=== PATIENT | female | born 1945 | race Caucasian/White ===

== ENCOUNTER → 2016-04-20 | Outpatient (REF) | payer MEDICARE ==
[~2016-04-20] MED LIST: /ADVA50050 INH; /AMIO20TA PO; /ATOR40TA PO; /TIOT18INH INH; ACET-654 PO; ADV500INH INH; ALBU17IN INH; AMIO20TA PO; AMLO5TAB; ASPI81TA85 PO; ATOR40TA PO; BACL5TA PO; BISO5TAB5 PO; CALC600T10 PO; ENEMENE6 PR; FOLI1TAB; FOLI1TAB2 PO; FURO20TA2 PO; FURO40TA2 PO; IPRASOL4 INH; IRON CR; KLOR1TAB77 PO; LEVO50TA5 PO; MAG-400T7 PO; MAGN400T5 PO; MAGNESIUM OXIDE PO; MILKSUS PO; MULTIVIT; NYSTATIN ORAL; PEPC20TA2 PO; PERC5TAB8; PLAV75TA PO; POTA20TA; PRED10TA2; PRED20TA; PRED5TAB; PRIL20CA PO; SENN8.6T10 PO; SYMB80AE INH; SYNT50TA PO; TRAZ25TA GT; TYLE167L PO; VITAD1000T PO; VITAMIN D PO; XOPE1.252; mucinex
[2016-04-20 11:17] LABS: ALBUMIN 3.2 GM/DL (3.2-5.2); CALCIUM LEVEL 8.6 MG/DL (8.8-10.2); CREATININE FOR GFR 1.31 MG/DL (0.55-1.02); GLOMERULAR FILTRATION RATE 42.6 (>39); MAGNESIUM LEVEL 2.5 MG/DL (1.8-2.4); PHOSPHORUS LEVEL 3.9 MG/DL (2.5-4.9); POTASSIUM SERUM 4.8 MEQ/L (3.5-5.1)
== END ==
PROVIDERS: ATTEND Internal Medicine
DX: I48.91 Unspecified atrial fibrillation (principal); I50.9 Heart failure, unspecified; E87.6 Hypokalemia

== ENCOUNTER → 2016-06-14 | Outpatient (REF) ==
[~2016-06-14] MED LIST changes: +1/2 NS; +ACET500T37 PO; +ALBU83IN INH; +ALDA25TA2 PO; +CEFT1INJ3 IV; +DEMA20TA6 PO; +FEVE650S3 PR; +K-TA1TAB PO; -PLAV75TA PO; +PLAV75TA38 PO; +ROCE1INJ4 IV; +ZOLO50TA PO; +[UNRECOGNIZED DRUG - CODE] IV
--- NOTE | 2016-06-14 16:46 | REP ---
Single view chest x-ray: History: Wheezing and cough. Comparison study: 01/07/2016. Findings: The patient is rotated somewhat to the right. Mild cardiomegaly is observed. This is unchanged. Pulmonary vasculature is congested. No infiltrate or pleural effusion is seen. There is some plate-like atelectasis or linear scarring in the right base. Impression: No acute infiltrate. Cardiomegaly. Mild linear scarring versus discoid atelectasis on the right. Signed by Donta Thakkar MD 06/14/2016 05:05 P
== END ==
PROVIDERS: ATTEND Internal Medicine
DX: R05 Cough (principal); R06.2 Wheezing; I51.7 Cardiomegaly

== ENCOUNTER → 2016-06-15 | Outpatient (REF) ==
[2016-06-15 13:36] LABS: MEAN CORPUSCULAR HEMOGLOBIN 28.2 pg (27.0-33.0); MEAN CORPUSCULAR HGB CONC 32.4 g/dl (32.0-36.5); WHITE BLOOD COUNT 10.7 K/mm3 (4.0-10.0)
[2016-06-15 14:08] LABS: ALBUMIN 3.2 GM/DL (3.2-5.2); ALBUMIN/GLOBULIN RATIO 0.8 (1.00-1.93); BILIRUBIN,DIRECT 0.3 MG/DL (0.0-0.2); BILIRUBIN,TOTAL 0.9 MG/DL (0.2-1.0); CALCIUM LEVEL 9.2 MG/DL (8.8-10.2); CREATININE FOR GFR 1.61 MG/DL (0.55-1.02); GLOMERULAR FILTRATION RATE 33.6 (>39); POTASSIUM SERUM 4.3 MEQ/L (3.5-5.1); TOTAL PROTEIN 7.2 GM/DL (6.4-8.2)
== END ==
PROVIDERS: ATTEND Internal Medicine
DX: R10.11 Right upper quadrant pain (principal)

== ENCOUNTER → 2016-06-15 | Outpatient (REF) | PROVIDERS: ATTEND Internal Medicine | DX: R11.10 Vomiting, unspecified (principal); Z53.9 Procedure and treatment not carried out, unspecified reason ==

== ENCOUNTER → 2016-06-15 | Outpatient (CLI) | payer MEDICARE, MEDICAID ==
--- NOTE | 2016-06-15 15:22 | REP ---
REASON: Abdominal pain and vomiting. COMPARISON: 08/02/2009 The lack of intravenous and all bowel preparatory contrast agents significantly decreased the sensitivity of the exam. There are patchy lung base opacities. There are no pleural or pericardial effusions. Hepatic and splenic densities are within normal limits. There is cholelithiasis. There are bilateral renovascular calcifications representing a change from the prior exam, and there are calcifications in the left renal collecting system without hydronephrosis or hydroureter. There are no urinary bladder calcifications. The adrenal glands are essentially unchanged. The pancreas is unchanged. There is density in the distal esophagus possibly related to some form of ingested substance. Exact etiology is uncertain. There is no gross aortic abnormality. There is no evidence of intestinal obstruction. No free fluid or free air is seen in the abdomen. CT PELVIS: There is a large amount of content in the rectum. No free pelvic fluid or air is evident. There is no evidence of pelvic adenopathy. There appears to be diffuse muscular wasting. There is previous right hip ORIF. There are chronic spinal degenerative changes, and the bones appear demineralized. IMPRESSION: 1. Cholelithiasis. 2. Renal calcifications, as described above. 3. Large amount of rectal vault content. Fecal impaction cannot be ruled out. Correlate clinically. 4. Lung base opacities. Basilar pneumonia cannot be ruled out and needs to be correlated clinically. 5. Other findings as described above. Signed by Augie Esparza DO 06/15/2016 03:50 P
== END ==
LOC: M RAD 13:52
PROVIDERS: ATTEND Physician Assistant
DX: R11.10 Vomiting, unspecified (principal)

== ENCOUNTER 2016-06-16 10:14 | Inpatient (IN) | payer MEDICARE, MEDICAID ==
[~2016-06-16] VITALS: Ht 165.1 cm; Wt 105.5 kg
[~2016-06-16 10:14] MED LIST changes: -1/2 NS; -ACET500T37 PO; -ALBU83IN INH; -ALDA25TA2 PO; -CEFT1INJ3 IV; -DEMA20TA6 PO; -FEVE650S3 PR; -K-TA1TAB PO; -ROCE1INJ4 IV; -ZOLO50TA PO; -[UNRECOGNIZED DRUG - CODE] IV
[2016-06-16] MEDS ORDERED: ZOLO50TA PO (11:00)
[2016-06-16] MEDS ORDERED: DEMA20TA6 PO (11:02)
[2016-06-16] MEDS ORDERED: K-TA1TAB PO (11:04)
[2016-06-16] MEDS ORDERED: ALDA25TA2 PO (11:05)
[2016-06-16] MEDS ORDERED: 1/2 NS (11:08)
[2016-06-16] MEDS ORDERED: ROCE1INJ4 IV (11:13)
[2016-06-16 11:20] LABS: BASO # 0.1 K/mm3 (0.0-0.2); BASO % 0.6 % (0.0-1.0); EOS % 0.1 % (0.0-3.0); LARGE UNSTAINED CELL # 0.3 K/mm3 (0.0-0.4); LARGE UNSTAINED CELL % 1.6 % (0.0-4.0); LYMPH # 1.3 K/mm3 (1.5-4.5); LYMPH % 5.6 % (24.0-44.0); MEAN CORPUSCULAR HEMOGLOBIN 27.3 pg (27.0-33.0); MEAN CORPUSCULAR HGB CONC 31.3 g/dl (32.0-36.5); MEAN CORPUSCULAR VOLUME 87.3 fl (80.0-96.0); MONO # 1.7 K/mm3 (0.0-0.8); NEUTROPHILS # 14.1 K/mm3 (1.8-7.7); NEUTROPHILS % 82.1 % (36.0-66.0); PLATELET COUNT, AUTOMATED 402 k/mm3 (150-450); RED CELL DISTRIBUTION WIDTH 14.9 % (11.5-14.5); WHITE BLOOD COUNT 17.2 K/mm3 (4.0-10.0)
[2016-06-16] MEDS ORDERED: IPRATROPIUM 0.5MG/ALBUTEROL 2.5MG INH SOL UD 3ML (DUONEB)(J7620) NEB ONE (11:30)
[2016-06-16] MEDS ORDERED: ACETAMINOPHEN TAB 650MG DOSE (2X325MG) PO ONE (11:30)
[2016-06-16] MEDS ORDERED: PIPERACILLIN/TAZOBACTAM SOD 3.375 GM in D5W MINI-BAG PLUS 50 ML IV ONE (11:45)
[2016-06-16 11:57] LABS: ABG BASE EXCESS 1.5 (-2.0-2.0); ABG HCO3 26.3 MEQ/L (22.0-26.0); ABG PARTIAL PRESSURE CO2 42.4 mmHg (35.0-45.0); ABG PARTIAL PRESSURE O2 69.8 mmHg (75.0-100.0); ABG STANDARD HCO3 25.7 MEQ/L (22.0-26.0); ABG TOTAL CO2 27.6 MEQ/L (23.0-31.0); ABG pH (ARTERIAL) 7.411 UNITS (7.350-7.450)
[2016-06-16 12:24] LABS: BLOOD UREA NITROGEN 29 MG/DL (7-18); CALCIUM LEVEL 8.9 MG/DL (8.8-10.2); CHLORIDE LEVEL 112 MEQ/L (98-107); CREATININE FOR GFR 1.38 MG/DL (0.55-1.02); GLOMERULAR FILTRATION RATE 40.1 (>39); GLUCOSE, FASTING 79 MG/DL (83-110); POTASSIUM SERUM 3.8 MEQ/L (3.5-5.1); SODIUM LEVEL 151 MEQ/L (136-145)
[2016-06-16 12:27] LABS: ANION GAP 13 MEQ/L (8-16); CARBON DIOXIDE LEVEL 26 MEQ/L (21-32)
--- NOTE | 2016-06-16 12:28 | ECGEPIP ---
Stationary ECG Study [facility] - ED Test Date: 2016-06-16 Pat Name: KRISTEN BURRELL Department: Room: - Gender: F Science Specialist: [place] : 1945 Requested By: Sandrine Franklin Order Number: [id number] Reading MD: Ravi Groves Measurements Intervals [place] Rate: 75 P: 30 IA: 157 QRS: 21 QRSD: 111 T: 2 QT: 398 QTc: 444 Interpretive Statements SINUS RHYTHM MODERATE INTRAVENTRICULAR CONDUCTION DELAY PRIOR INFERIOR INFARCT ST DEVIATION AND MODERATE T-WAVE ABNORMALITY, CONSIDER ANTERIOR ISCHEMIA Electronically Signed On 06-16-2016 12:05:14 EST by Ravi Groves
--- NOTE | 2016-06-16 12:43 | REP ---
Chest one-view HISTORY: Shortness of breath Comparison: 06/14/2016 The lungs are clear. The cardiac silhouette is enlarged. The pulmonary vasculature is normal in appearance. Impression: Cardiomegaly. Signed by Gabriel Villatoro MD 06/16/2016 12:34 P
[2016-06-16] MEDS ORDERED: methylPREDNISolone INJ 125 MG/2 ML VIAL (J2930) IV ONE (13:45)
--- NOTE | 2016-06-16 14:27 | HPEPDOC ---
Medical History and Physical Date of Admission 06/16/16 History and Physical ATTENDING: Dr. Luna PCP: Margarette CC: Vomiting HPI: 71yoF with a past medical history significant for CVA/left hemiparesis, COPD, CHF, resident of [facility]. EMS was called this AM related to vomiting. Pt had been diagnosed with Pn yesterday. EMS reported O2 sat 82% on 3 LNC. Denies any fevers, chills, weakness, fatigue, CORTEZ, CP, palpitations, abdominal pain, N/V/D or changes in bowel or bladder habits. Upon presentation to the hospital the patient was found to have B PNA, with concern for aspiration thus the hospitalist team was consulted. PMHx: COPD O2 2LNC at night and with naps. Pulmonary HTN TTE 07/01 EF 60%, nml diastolic function. CVA/Left hemiparesis CAD H/O Aspiration Pn CHF- diastolic GERD hypothyroid A Fib PVD depression anxiety CKD3 PSHX: Cataract extraction tonsillectomy Rt hip repair pericardiocentesis SOCHX: Resides in: resident of [facility] Marital Status: Kids: 2, 1 Employment: retired teacher Tobacco use: former smoker, quit 2009 ETOH: none currently. 40 years, 2-4 per day. Illicit Drugs: Denies Recent travel: denies Advanced directives: Pt states she has a DNR. FAMHX: Mother: HTN Father: aneurysm Children: 1Alive, well. 1 MVA. Unexpected deaths due to medical reasons: None. ROS: As noted in HPI, otherwise 11pt ROS of systems reviewed and unremarkable. PE: GEN: 71yoF, appears stated age. Well-nourished, well developed. States breathing currently comfortable, lying on stretcher in ED. Alert and oriented x 3. HEENT: Normocephalic, atraumatic. Pupils are equal, round, and reactive to light. Extraocular movements are intact. No nystagmus appreciated. Sclera are nonicteric. Conjunctiva without injection. Nose midline. Nasal turbinates without bogginess. EACs both patent BL. Moist mucous membranes. Dentition fair. Pharynx pink and moist, no cobblestoning. Neck supple, trachea midline. No lymphadenopathy or thyromegaly appreciated. CHEST: Regular rate and rhythm, +S1, +S2 LUNGS: Decreased BS bilaterally. Few scattered wheezes, no rales, or rhonchi noted. Breathing appears symmetric and easy. Patient is speaking in full sentences. No accessory muscle use. ABD: Round, soft, non-tender, non-distended. +Bowel sounds throughout. No rebound or guarding. No costovertebral angle tenderness. EXT: Pulses 2+ bilaterally dorsalis pedis and radial. No lower extremity edema appreciated. SKIN: [place], dry, warm. Capillary refill <2sec. No rashes. NEURO: Alert and oriented x 3. Cranial nerves III-XII are intact. Pt is noted to have left hemiparesis. CXR: cardiomegaly LE U/S pending. EKG: SR, mod IVCD, ST abn, 75 bpm. BLOOD CULTURES: pending Sputum culture pending. LA 0.8 A&P: 71yoF with a past medical history significant for H/O CVA/left hemiparesis , COPD, CHF (diastolic), resident of [facility]. EMS was called this AM related to vomiting. Pt had been diagnosed with Pn yesterday. EMS reported O2 sat 82% on 3 LNC. The patient will be admitted to /S for at least [address] Luna's service. Pt is discussed with Dr Tucker. B/L Pn(HAP) concern for aspiration. IV Zosyn/Vanco (dosing as per pharmacy). BC /SC pending. ST eval pending. Vomiting/concern for aspiration. IV Zofran prn. NPO. IVF at 60cc/hr. Hypernatremia. Ur Na/Osm pending. IVF D5W at 60cc/hr CHF, diastolic. Demadex/KCl/aldactone on hold at this time. Hypomagnesemia. po supplement. Check level. CAD. Zebeta/ASA/Plavix. COPD. O2/Nebs. IV Solumedrol given in ED. Advair. Afib. EKG SR. Amiodarone/ASA H/O CVA. ASA HLD. Statin. Hypothyroid. supplement. Anxiety/depression. Zoloft CKD3 Appears to be at baseline 1.2-1.4 DVT prophylaxis. The patient states she is DNR. Request copy. I have both independently examined this patient as well as reviewed the dictated note. I have discussed in detail with Ms. Del Rio the findings and plan of treatment as documented in the her note. I will continue to follow the patient and offer further guidance to the patients care as necessary during this hospital stay. Vital Signs 99.4 74 162/69 91% Laboratory Data Labs 24H Laboratory Tests 2 06/16/16 10:36: White Blood Count 17.2H, Red Blood Count 4.83, Hemoglobin 13.2, Hematocrit 42.2 , Mean Corpuscular Volume 87.3, Mean Corpuscular Hemoglobin 27.3, Mean Corpuscular Hemoglobin Concent 31.3L, Red Cell Distribution Width 14.9H, Platelet Count 402, Neutrophils (%) (Auto) 82.1H, Lymphocytes (%) (Auto) 5.6L, Monocytes (%) (Auto) 10.0H, Eosinophils (%) (Auto) 0.1, Basophils (%) (Auto) 0.6 , Neutrophils # (Auto) 14.1H, Lymphocytes # (Auto) 1.3L, Monocytes # (Auto) 1.7H , Eosinophils # (Auto) 0.0, Basophils # (Auto) 0.1, Large Unclassified Cells # 0.3, Large Unclassified Cells % 1.6 06/16/16 11:45: Anion Gap 13, B-Type Natriuretic Peptide 412H, Blood Urea Nitrogen 29H, Creatinine 1.38H, Sodium Level 151H, Potassium Level 3.8, Chloride Level 112H, Carbon Dioxide Level 26, Calcium Level 8.9, Total Creatine Kinase 96, Creatine Kinase MB 1.3, Creatine Kinase MB Relative Index 1.35, Glomerular Filtration Rate 40.1, Lactic Acid (Sepsis) 0.8, Troponin I < 0.02 06/16/16 11:53: Arterial Blood pH 7.411, Arterial Blood Partial Pressure CO2 42.4, Arterial Blood Partial Pressure O2 69.8L, Arterial Blood Total CO2 27.6, Arterial Blood HCO3 26.3H, Arterial Blood Base Excess 1.5, Arterial Blood Oxygen Saturation 93.6L, Blood Gas Bicarbonate Standard 25.7 CBC/BMP Laboratory Tests 06/16/16 10:36 Red Blood Count 4.83, Mean Corpuscular Volume 87.3, Mean Corpuscular Hemoglobin 27.3, Mean Corpuscular Hemoglobin Concent 31.3 L, Red Cell Distribution Width 14.9 H, Neutrophils (%) (Auto) 82.1 H, Lymphocytes (%) (Auto) 5.6 L, Monocytes ( %) (Auto) 10.0 H, Eosinophils (%) (Auto) 0.1, Basophils (%) (Auto) 0.6, Neutrophils # (Auto) 14.1 H, Lymphocytes # (Auto) 1.3 L, Monocytes # (Auto) 1.7 H, Eosinophils # (Auto) 0.0, Basophils # (Auto) 0.1 06/16/16 11:45 Calcium Level 8.9, Total Creatine Kinase 96 Microbiology Microbiology 06/16/16 Blood Culture, Received Pending Home Medications Scheduled Acetaminophen (Acetaminophen Extra Stren) 500 Mg Tab 500 MG PO BID Albuterol Sulfate (Albuterol Sulfate) 2.5 Mg/3 Ml Nebu 2.5 MG INH ASDIRECTED EVERY 3 HOURS:0000,0300,0600,0900,1200,1500,1800,2100 Amiodarone HCl (Amiodarone HCl) 200 Mg Tab 200 MG PO DAILY Aspirin (Aspir-81) 81 Mg Tab 81 MG PO DAILY Atorvastatin Calcium (Atorvastatin Calcium) 40 Mg Tab 40 MG PO QHS Baclofen (Baclofen) 10 Mg Tab 5 MG PO BID Bisoprolol Fumarate (Bisoprolol Fumarate) 5 Mg Tab 2.5 MG PO DAILY Ceftriaxone Sodium (Ceftriaxone Sodium) 1 Gm Inj 1 GM IV QPM Clopidogrel Bisulfate (Plavix) 75 Mg Tab 75 MG PO DAILY Folic Acid (Folic Acid) 1 Mg Tab 1 MG PO DAILY Levothyroxine Sodium (Synthroid) 50 Mcg Tab 50 MCG PO QAM Potassium Chloride (K-Tab) 20 Meq Tab 20 MEQ PO DAILY Salmeterol/Fluticasone (Advair Diskus 500-50 Mcg/Dose) 28 Puff/Inhaler Aerp 1 PUFF INH BID Sertraline Hcl (Zoloft) 50 Mg Tab 50 MG PO DAILY Sodium Chloride (Sodium Chloride 0.45%) 0.45 % Inj 80 ML IV Q1H 80CC HR CONTINUOUS X 3 LITERS Spironolactone (Aldactone) 25 Mg Tab 12.5 MG PO DAILY Torsemide (Demadex) 20 Mg Tab 60 MG PO BID Vitamin D (Vitamin D3) 1,000 Units Tab 1,000 UNITS PO DAILY Scheduled PRN Acetaminophen (Acetaminophen) 325 Mg Tab 650 MG PO Q4H PRN PRN PAIN Acetaminophen (Feverall Adults) 650 Mg Sup 650 MG IN Q4H PRN PRN PAIN / FEVER Albuterol Sulfate (Ventolin Hfa) 200 Puff/8 Gm Aers 2 PUFF INH Q4H PRN PRN SHORTNESS OF BREATH Milk Of Magnesia (Milk of Magnesia) 1,200 Mg/15 Ml Tamara 30 ML PO DAILY PRN PRN CONSTIPATION Senna (Senna Lax) 8.6 Mg Tab 1 TAB PO DAILY PRN PRN CONSTIPATION Allergies Coded Allergies: [place] (Verified Allergy, Unknown, 07/22/12) Kathleen Del Rio Jun 16, 2016 14:27 JASBIR TUCKER MD Jun 19, 2016 13:03
[2016-06-16] MEDS ORDERED: FEVE650S3 PR (15:13)
[2016-06-16] MEDS ORDERED: [UNRECOGNIZED DRUG - CODE] IV (15:13)
[2016-06-16] MEDS ORDERED: ALBU83IN INH (15:17)
--- NOTE | 2016-06-16 15:18 | REP ---
Bilateral lower extremity Duplex Doppler venous ultrasound: Real time compression and duplex Doppler interrogation of the bilateral lower extremity deep venous system is performed. Bilaterally, the common femoral, superficial femoral and popliteal veins are fully compressible with transducer pressure and demonstrate normal spontaneous and phasic flow, without evidence of deep venous thrombosis. Impression: No evidence of deep venous thrombosis of the bilateral lower extremity femoral popliteal venous system. Signed by Rey Guzman MD 06/16/2016 03:10 P
[2016-06-16] MEDS ORDERED: AMIO20TA PO (15:29)
[2016-06-16] MEDS ORDERED: CEFT1INJ3 IV (15:29)
[2016-06-16] MEDS ORDERED: BISO5TAB5 PO (15:29)
[2016-06-16] MEDS ORDERED: ACET500T37 PO (15:29)
[2016-06-16] MEDS ORDERED: IPRATROPIUM 0.5MG/ALBUTEROL 2.5MG INH SOL UD 3ML (DUONEB)(J7620) NEB PRN (15:30)
[2016-06-16] MEDS ORDERED: MOM 30ML SUSPENSION UDC PO PRN (15:30)
[2016-06-16 17:02] VITALS: BP 151/71
[2016-06-16] MEDS: D5W 1,000 ML IV SCH (17:36)
[2016-06-16] MEDS: BISOPROLOL FUM 2.5 MG PER 1/2TAB PO SCH (17:36)
[2016-06-16] MEDS: PIPERACILLIN/TAZOBACTAM SOD 3.375 GM in D5W MINI-BAG PLUS 50 ML IV SCH (17:37)
[2016-06-16] MEDS: IPRATROPIUM 0.5MG/ALBUTEROL 2.5MG INH SOL UD 3ML (DUONEB)(J7620) NEB SCH (20:00)
[2016-06-16] MEDS: VANCOMYCIN HCL 1,000 MG, VIAL MATE ADAPTER 1 EACH in D5W 250 ML IV SCH (20:11)
[2016-06-16] MEDS ORDERED: VANCOMYCIN HCL 1,000 MG, VIAL MATE ADAPTER 1 EACH in D5W 250 ML IV ONE (21:00)
[2016-06-16] MEDS: ADVAIR DISKUS 500/50 INH PWD INH SCH (21:21)
[2016-06-16 21:24] VITALS: O2SAT 94
[2016-06-16 22:00] VITALS: BP 143/67
[2016-06-16] MEDS: SENNA 8.6 MG TAB (SENOKOT) PO SCH (22:27)
[2016-06-16] MEDS: BACLOFEN 5MG PER 1/2 TABLET PO SCH (22:27)
[2016-06-16] MEDS: ATORVASTATIN 20 MG TAB PO SCH (22:27)
[2016-06-17] MEDS: PIPERACILLIN/TAZOBACTAM SOD 3.375 GM in D5W MINI-BAG PLUS 50 ML IV SCH ×4 (00:13→17:15)
--- NOTE | 2016-06-17 01:28 | IPNPDOC ---
Date Seen The patient was seen on 06/17/16. Progress Note SUBJECTIVE: Called to evaluate pt for skin lesion. Pt stated that the wound was being addressed at [facility]. Pt has no DVT prophylaxis ordered. OBJECTIVE PHYSICAL EXAMINATION: VITAL SIGNS: Please see below. SKIN: post LLE, 2cm in diameter, ulcerated skin, some serosanguineous discharge on dressing. Tender to touch ASSESSMENT AND PLAN: This is a 71 y/o F admitted for pneumonia. Appears to have an area of ulcerated skin on her post L calf. We will keep the wound dry and covered for now. Will request wound care. DVT prophylaxis: pt stared on Lovenox. VS, I&O, 24H, Fishbone Vital Signs/I&O Vital Signs Date Time Temp Pulse Resp B/P Pulse Ox O2 Delivery O2 Flow Rate FiO2 06/16/16 22:00 97.8 70 18 143/67 90 High Flow Cannula 06/16/16 20:11 10.0 I&O- Last 24 Hours up to 6 AM 06/17/16 06:00 Intake Total 50 ml Balance 50 ml Laboratory Data 24H LABS Laboratory Tests 2 06/16/16 10:36: White Blood Count 17.2H, Red Blood Count 4.83, Hemoglobin 13.2, Hematocrit 42.2 , Mean Corpuscular Volume 87.3, Mean Corpuscular Hemoglobin 27.3, Mean Corpuscular Hemoglobin Concent 31.3L, Red Cell Distribution Width 14.9H, Platelet Count 402, Neutrophils (%) (Auto) 82.1H, Lymphocytes (%) (Auto) 5.6L, Monocytes (%) (Auto) 10.0H, Eosinophils (%) (Auto) 0.1, Basophils (%) (Auto) 0.6 , Neutrophils # (Auto) 14.1H, Lymphocytes # (Auto) 1.3L, Monocytes # (Auto) 1.7H , Eosinophils # (Auto) 0.0, Basophils # (Auto) 0.1, Large Unclassified Cells # 0.3, Large Unclassified Cells % 1.6 06/16/16 11:45: Anion Gap 13, B-Type Natriuretic Peptide 412H, Blood Urea Nitrogen 29H, Creatinine 1.38H, Sodium Level 151H, Potassium Level 3.8, Chloride Level 112H, Carbon Dioxide Level 26, Calcium Level 8.9, Total Creatine Kinase 96, Creatine Kinase MB 1.3, Creatine Kinase MB Relative Index 1.35, Glomerular Filtration Rate 40.1, Lactic Acid (Sepsis) 0.8, Troponin I < 0.02 06/16/16 11:53: Arterial Blood pH 7.411, Arterial Blood Partial Pressure CO2 42.4, Arterial Blood Partial Pressure O2 69.8L, Arterial Blood Total CO2 27.6, Arterial Blood HCO3 26.3H, Arterial Blood Base Excess 1.5, Arterial Blood Oxygen Saturation 93.6L, Blood Gas Bicarbonate Standard 25.7 06/16/16 15:20: Osmolality 320H CBC/BMP Laboratory Tests 06/16/16 10:36 Red Blood Count 4.83, Mean Corpuscular Volume 87.3, Mean Corpuscular Hemoglobin 27.3, Mean Corpuscular Hemoglobin Concent 31.3 L, Red Cell Distribution Width 14.9 H, Neutrophils (%) (Auto) 82.1 H, Lymphocytes (%) (Auto) 5.6 L, Monocytes ( %) (Auto) 10.0 H, Eosinophils (%) (Auto) 0.1, Basophils (%) (Auto) 0.6, Neutrophils # (Auto) 14.1 H, Lymphocytes # (Auto) 1.3 L, Monocytes # (Auto) 1.7 H, Eosinophils # (Auto) 0.0, Basophils # (Auto) 0.1 06/16/16 11:45 Calcium Level 8.9, Total Creatine Kinase 96 Microbiology Microbiology 06/16/16 Blood Culture, Received Pending 06/16/16 Influenza Virus Type A Antigen - Final, Complete 06/16/16 Influenza Virus Type B Antigen - Final, Complete 06/16/16 Respiratory Virus Panel (PCR) ([facility]) - Final, Complete JUAN M LAMBERT DO Jun 17, 2016 01:28
[2016-06-17] MEDS: IPRATROPIUM 0.5MG/ALBUTEROL 2.5MG INH SOL UD 3ML (DUONEB)(J7620) NEB SCH ×4 (01:46→20:00)
[2016-06-17 01:47] VITALS: O2SAT 94
[2016-06-17] MEDS: LEVOTHYROXINE 0.05 MG TAB (50 MCG) PO SCH (05:15)
[2016-06-17 06:00] VITALS: BP 136/65
[2016-06-17 06:52] LABS: ALBUMIN 2.6 GM/DL (3.2-5.2); ALBUMIN/GLOBULIN RATIO 0.6 (1.00-1.93); BILIRUBIN,TOTAL 0.8 MG/DL (0.2-1.0); CALCIUM LEVEL 8.6 MG/DL (8.8-10.2); CREATININE FOR GFR 1.48 MG/DL (0.55-1.02); MAGNESIUM LEVEL 2.8 MG/DL (1.8-2.4); POTASSIUM SERUM 3.3 MEQ/L (3.5-5.1); TOTAL PROTEIN 6.9 GM/DL (6.4-8.2)
[2016-06-17 06:54] LABS: BASO % 0.2 % (0.0-1.0); EOS % 0.2 % (0.0-3.0); LARGE UNSTAINED CELL # 0.2 K/mm3 (0.0-0.4); LARGE UNSTAINED CELL % 1.3 % (0.0-4.0); LYMPH # 0.6 K/mm3 (1.5-4.5); LYMPH % 4.6 % (24.0-44.0); MEAN CORPUSCULAR HEMOGLOBIN 27.3 pg (27.0-33.0); MEAN CORPUSCULAR HGB CONC 31.7 g/dl (32.0-36.5); MEAN CORPUSCULAR VOLUME 86.2 fl (80.0-96.0); MONO # 0.5 K/mm3 (0.0-0.8); MONO % 3.4 % (0.0-5.0); NEUTROPHILS # 12.3 K/mm3 (1.8-7.7); NEUTROPHILS % 90.2 % (36.0-66.0); PLATELET COUNT, AUTOMATED 326 k/mm3 (150-450); WHITE BLOOD COUNT 13.6 K/mm3 (4.0-10.0)
[2016-06-17] MEDS: ADVAIR DISKUS 500/50 INH PWD INH SCH ×2 (08:07→20:45)
[2016-06-17] MEDS ORDERED: POTASSIUM CHLORIDE 10 MEQ SR TABLET PO ONE ×2 (08:15→15:15)
[2016-06-17] MEDS: D5W 1,000 ML IV SCH ×2 (08:32→15:53)
[2016-06-17] MEDS ORDERED: MAGNESIUM OXIDE 400 MG TAB (MAG-OX) PO SCH (09:00)
[2016-06-17] MEDS: FOLIC ACID 1 MG TAB PO SCH (09:28)
[2016-06-17] MEDS: BACLOFEN 5MG PER 1/2 TABLET PO SCH ×2 (09:28→20:54)
[2016-06-17] MEDS: CLOPIDOGREL 75 MG TAB PO SCH (09:28)
[2016-06-17] MEDS: BISOPROLOL FUM 2.5 MG PER 1/2TAB PO SCH (09:28)
[2016-06-17] MEDS: ENOXAPARIN 30 MG/0.3 ML SYR (J1650) SC SCH (09:29)
[2016-06-17] MEDS: SERTRALINE HCL 50 MG TAB PO SCH (09:29)
[2016-06-17] MEDS: VITAMIN D 1,000 INTERNATIONAL UNITS TABLET PO SCH (09:29)
[2016-06-17] MEDS: ASPIRIN 81 MG ENTERIC TAB PO SCH (09:29)
[2016-06-17] MEDS: AMIODARONE 200 MG TAB (PACERONE) PO SCH (09:29)
[2016-06-17] MEDS: ACETAMINOPHEN TAB 650MG DOSE (2X325MG) PO PRN (12:16)
[2016-06-17 13:41] LABS: ALBUMIN 2.7 GM/DL (3.2-5.2); ALBUMIN/GLOBULIN RATIO 0.68 (1.00-1.93); BILIRUBIN,TOTAL 0.8 MG/DL (0.2-1.0); CALCIUM LEVEL 8.6 MG/DL (8.8-10.2); CREATININE FOR GFR 1.42 MG/DL (0.55-1.02); GLOMERULAR FILTRATION RATE 38.8 (>39); MAGNESIUM LEVEL 2.8 MG/DL (1.8-2.4); POTASSIUM SERUM 3.4 MEQ/L (3.5-5.1); TOTAL PROTEIN 6.7 GM/DL (6.4-8.2)
--- NOTE | 2016-06-17 15:05 | IPNPDOC ---
Text Note Date of Service The patient was seen on 06/17/16. NOTE Subjective: Patient is a 71 year old female with a PMHx of COPD (on 2L at night), Pulmonary HTN, Diastolic CHF, CVA w/ L hemiparesis, CAD, Hypothyroidism, A. fib , Depression / Anxiety, CKD3, and Hx of aspiration pneumonia who presented to the ED with complaints of shortness of breath, cough and fever at [facility]. Patient was suspected of having an aspiration pneumonia after she failed to remain compliant with her dietary recommendations. Patient was seen and examined at the bedside. She is currently on additional supplemental oxygen. She does not have any new complaints. Objective: Vitals (See below) General: Lying in bed, no acute distress, comfortable, AAOx3 HEENT: NC, AT CVS: RRR, +S1S2 Lungs: Fair air entry b/l, + Rhonchi at left lung base Abdomen: Soft, ND, NT, +BSx4 Extremities: +PPx4, - Edema, - Calf tenderness Assessment and plan: 1. Acute hypoxic respiratory failure - likely 2/2 aspiration pneumonia - presented with shortness of breath, cough and fever - Physical reveals some rhonchi at the left lung base - CXR 06/16: does not reveal any significant change; 06/14 reveals mild linear scarring vs. discoid atelectasis at R - Blood cultures, Respiratory panel and Influenza negative - Will get CT chest to evaluate for pneumonia and for possible source of esophageal stricture - Will c/w Vancomycin and Zosyn (Day #2) 2. Nausea / vomiting with oral intake - possibly 2/2 esophageal obstruction - Patient was unable to have physical therapy speech evaluation completed because she was unable to drink any liquids - Unable to get cookie evaluation or esophogram at the risk of aspiration - Will get Chest imaging with CT scan - Will discuss with Surgery about possible EGD 3. Hypernatremia - possibly 2/2 dehydration - Improving - c/w IV fluid hydration with D5 1/2 NS 4. Elevated creatinine on CKD3 - possibly 2/2 pre-renal 2/2 vomiting and poor oral intact - Cr baseline of 1.2 - Creatinine continues to decline - c/w IV fluid hydration (will watch for signs of fluid overload) 5. Diastolic CHF - spironolactone and torsemide on hold 6. CAD - c/w ASA and Plavix 7. COPD - no evidence of exacerbation - c/w supplemental oxygen - c/w duoneb 8. A. fib - rate controlled with amiodarone - c/w ASA for anticoagulation 9. Hx of CVA with L sided hemiparesis - c/w ASA and statin 10. DLP - c/w statin 11. Hypothryoidism - c/w levothyroxine 12. Anxiety / Depression - c/w sertraline 13. DVT prophylaxis - c/w lovenox (renally adjusted) VS,Fishbone, I+O VS, Fishbone, I+O Laboratory Tests 06/17/16 06:06 Calcium Level 8.6 L, Aspartate Amino Transf (AST/SGOT) 19, Alanine Aminotransferase (ALT/SGPT) 15, Alkaline Phosphatase 71, Total Bilirubin 0.8, Total Protein 6.9, Albumin 2.6 L, Red Blood Count 4.58, Mean Corpuscular Volume 86.2, Mean Corpuscular Hemoglobin 27.3, Mean Corpuscular Hemoglobin Concent 31.7 L, Red Cell Distribution Width 15.0 H, Neutrophils (%) (Auto) 90.2 H, Lymphocytes (%) (Auto) 4.6 L, Monocytes (%) (Auto) 3.4, Eosinophils (%) (Auto) 0.2, Basophils (%) (Auto) 0.2, Neutrophils # (Auto) 12.3 H, Lymphocytes # (Auto ) 0.6 L, Monocytes # (Auto) 0.5, Eosinophils # (Auto) 0.0, Basophils # (Auto) 0.0 06/17/16 12:55 Calcium Level 8.6 L, Aspartate Amino Transf (AST/SGOT) 18, Alanine Aminotransferase (ALT/SGPT) 15, Alkaline Phosphatase 70, Total Bilirubin 0.8, Total Protein 6.7, Albumin 2.7 L Vital Signs Date Time Temp Pulse Resp B/P Pulse Ox O2 Delivery O2 Flow Rate FiO2 06/17/16 14:00 97.2 60 20 95 High Flow Cannula 6.0 06/17/16 09:28 136/65 I&O- Last 24 Hours up to 6 AM 06/17/16 06:00 Intake Total 50 ml Balance 50 ml SUDEEP OTTO MD Jun 17, 2016 15:05
--- NOTE | 2016-06-17 17:00 | REP ---
Chest CT without contrast: History: Evaluate for pneumonia. Possible esophageal stricture. Comparison chest CT study is from 07/03/2015. Comparison chest x-ray from the previous day. The patient was apparently unable to bring her arms out of the field of view over her head. CT findings: There are moderate bilateral lower lobe atelectatic changes in the subsegmental pattern which is a little more prominent than on the 07/03/2015 prior study. No definite new infiltrate is seen. Today's exam demonstrates a 7 mm soft tissue nodule in a rosalie-bronchovascular distribution in the right upper lobe on image #34 of 112 of series 201 on today's study. This is not visible on the prior CT study from June 2015 or on the prior CT study of 10/15/2013. I cannot exclude a small neoplastic nodule. Short interval follow-up is recommended 3-4 months. No hilar or mediastinal mass or adenopathy is seen. Vascular calcification is observed. Cholelithiasis is seen and there appear to be stones in the collecting system of the left kidney. There are calcifications in the pancreatic head consistent with previous episodes of pancreatitis. Diverticulosis changes are seen in the right and left colon at the bottom of the imaging field of view. Impression: Coarse bilateral subsegmental lower lobe discoid atelectasis. 7 mm noncalcified somewhat spiculated appearing rosalie-bronchovascular nodule in the right upper lobe. Neoplastic nodule suspected. Three 4-month followup chest CT recommended. The esophagus is unremarkable. Cholelithiasis and intrarenal calculi left kidney also noted. Signed by Donta Thakkar MD 06/17/2016 05:02 P
[2016-06-17] MEDS: ATORVASTATIN 20 MG TAB PO SCH (20:54)
[2016-06-17] MEDS: SENNA 8.6 MG TAB (SENOKOT) PO SCH (20:54)
[2016-06-17] MEDS: VANCOMYCIN HCL 1,000 MG, VIAL MATE ADAPTER 1 EACH in D5W 250 ML IV SCH (20:55)
[2016-06-17 22:00] VITALS: BP 151/69
[2016-06-18] MEDS: PIPERACILLIN/TAZOBACTAM SOD 3.375 GM in D5W MINI-BAG PLUS 50 ML IV SCH ×4 (00:01→17:35)
--- NOTE | 2016-06-18 00:45 | CR ---
DATE OF CONSULTATION: 06/17/2016 REASON FOR CONSULTATION: Aspiration pneumonia, question possible placement of percutaneous endoscopic gastrostomy tube placement for feeding. HISTORY OF PRESENT ILLNESS: The patient is a 71-year-old female with a previous history of a CVA, left hemiparesis, COPD, CHF, who had nausea, vomiting this morning had decreasing O2 saturations and was brought to the emergency room with diagnosis of aspiration pneumonia. The patient has been treated with antibiotics, given nebulizers and has improved from a respiratory status, has had some coughing issues still and was evaluated by speech pathology today and had some difficulty with drinking water although the patient states that she does not have any difficulties with drinking, does not have any difficulties with eating. The nurse who was with her today who has been giving her pills today stated that there was no concerns of aspiration/coughing or problems with food today. There was an attempt to schedule a barium swallow, but this was held off because of difficulty swallowing water. The patient has not had an upper endoscopy and I do not see any reports of recent other studies. Her past medical history is significant for history of O2 dependent COPD, history of left hemiparesis, CVA, history of coronary artery disease, history of aspiration pneumonia, history of CHF, history of GE reflux disease, history of hypothyroidism, history of morbid obesity, history of atrial fibrillation, history of peripheral vascular disease, history of depression, history of anxiety, previous history of tonsillectomy, right hip repair and pericardial centesis. MEDICATIONS: Include Tylenol, albuterol, amiodarone, aspirin, atorvastatin, baclofen, bisoprolol, Plavix, folic acid, Synthroid, K-Tab, Advair Discus, sertraline, Aldactone, Demadex, vitamin D. PHYSICAL EXAM: Reveals an obese female who looks stated age. HEENT is unremarkable. NECK: Supple without adenopathy. Lungs are diminished bilaterally with some crackles at the bases. Heart is regular with multiple irregular beats. Abdomen: Soft, nondistended, nontender. It is morbidly obese, however. IMPRESSION AND PLAN: The patient has questionable evidence of dysphasia at this point and I am wondering if it may be that she needs modification of her diet to thickened liquids instead of just simple thin liquids, may be something that may be adequate for her. After discussing this with her hospitalist, will have the speech pathologist see her again in the morning. Consider possible cookie swallow or barium swallow depending on the reevaluation performed in the morning. However, with an elevated white count, I would like to have this normalized prior to proceeding with a percutaneous endoscopic gastrostomy tube placement. This, at this point without any upper abdominal surgery is very reasonable to proceed with this. I reviewed her CT scan and indeed does show that the antrum/body of the stomach does come up against the posterior wall rather well and there is no interposed colon or small bowel. The only issue for her is her obesity does in some way make transillumination of the abdominal wall slightly more difficult. In any case, if the patient continues to normalize her white count, when this normalizes, I anticipate over the weekend, that we should be able to proceed with a percutaneous endoscopic gastrostomy tube early next week depending on her continued workup for this dysphasia.
[2016-06-18] MEDS: IPRATROPIUM 0.5MG/ALBUTEROL 2.5MG INH SOL UD 3ML (DUONEB)(J7620) NEB SCH ×4 (01:50→20:00)
[2016-06-18] MEDS: LEVOTHYROXINE 0.05 MG TAB (50 MCG) PO SCH (05:03)
[2016-06-18 06:00] VITALS: BP 142/64
[2016-06-18 07:16] LABS: ALBUMIN 2.6 GM/DL (3.2-5.2); ALBUMIN/GLOBULIN RATIO 0.62 (1.00-1.93); BILIRUBIN,TOTAL 0.7 MG/DL (0.2-1.0); CALCIUM LEVEL 8.6 MG/DL (8.8-10.2); CREATININE FOR GFR 1.52 MG/DL (0.55-1.02); GLOMERULAR FILTRATION RATE 35.9 (>39); POTASSIUM SERUM 3.4 MEQ/L (3.5-5.1); TOTAL PROTEIN 6.8 GM/DL (6.4-8.2)
[2016-06-18 07:26] LABS: BASO % 0.1 % (0.0-1.0); EOS % 0.1 % (0.0-3.0); LARGE UNSTAINED CELL # 0.3 K/mm3 (0.0-0.4); LARGE UNSTAINED CELL % 2.7 % (0.0-4.0); LYMPH # 0.8 K/mm3 (1.5-4.5); LYMPH % 6.1 % (24.0-44.0); MEAN CORPUSCULAR HEMOGLOBIN 26.9 pg (27.0-33.0); MEAN CORPUSCULAR HGB CONC 30.6 g/dl (32.0-36.5); MEAN CORPUSCULAR VOLUME 87.8 fl (80.0-96.0); MONO # 0.5 K/mm3 (0.0-0.8); MONO % 3.9 % (0.0-5.0); NEUTROPHILS # 10.8 K/mm3 (1.8-7.7); NEUTROPHILS % 87.1 % (36.0-66.0); PLATELET COUNT, AUTOMATED 365 k/mm3 (150-450); RED CELL DISTRIBUTION WIDTH 14.9 % (11.5-14.5); WHITE BLOOD COUNT 12.4 K/mm3 (4.0-10.0)
[2016-06-18] MEDS: ADVAIR DISKUS 500/50 INH PWD INH SCH ×2 (08:02→20:43)
--- NOTE | 2016-06-18 09:46 | IPNPDOC ---
Text Note Date of Service The patient was seen on 06/18/16. NOTE Subjective: Patient is a 71 year old female with a PMHx of COPD (on 2L at night), Pulmonary HTN, Diastolic CHF, CVA w/ L hemiparesis, CAD, Hypothyroidism, A. fib , Depression / Anxiety, CKD3, and Hx of aspiration pneumonia who presented to the ED with complaints of shortness of breath, cough and fever at [facility]. Patient was suspected of having an aspiration pneumonia after she failed to remain compliant with her dietary recommendations. Patient was seen and examined at the bedside. She does not have any new complaints today. She has been going down on the requirements of supplemental oxygen and will be going for a repeat swallow evaluation today. Objective: Vitals (See below) General: Lying in bed, no acute distress, comfortable, AAOx3 HEENT: NC, AT CVS: RRR, +S1S2 Lungs: Fair air entry b/l, + Rhonchi at b/l lower lung joyner Abdomen: Soft, ND, NT, +BSx4 Extremities: +PPx4, - Edema, - Calf tenderness Assessment and plan: 1. Acute hypoxic respiratory failure - likely 2/2 aspiration pneumonia - presented with shortness of breath, cough and fever - Physical reveals some rhonchi at the left lung base - CXR 06/16: does not reveal any significant change; 06/14 reveals mild linear scarring vs. discoid atelectasis at R - CT chest 06/17: course b/l subsegmental lower lobe discoid atelectasis, 7mm non- calcified, spiculated nodule at R upper lobe, - Blood cultures, Respiratory panel and Influenza negative - Will c/w Vancomycin and Zosyn (Day #3) 2. Nausea / vomiting with oral intake - possibly 2/2 esophageal obstruction - Patient was unable to have physical therapy speech evaluation completed because she was unable to drink any liquids - Unable to get cookie evaluation or esophagram at the risk of aspiration - However over the course of the day yesterday patient was able to tolerate taking medications and thickened food - Will repeat the swallow study today - CT chest: without any esophageal abnormalities noted - Surgery (Dr. Denney) following - appreciate their input; Possible EGD on Tuesday 3. Hypernatremia - possibly 2/2 dehydration - Improving 4. Elevated creatinine on CKD3 - possibly 2/2 pre-renal 2/2 vomiting and poor oral intact - Cr baseline of 1.2 - Creatinine continues to decline - c/w IV fluid hydration (will watch for signs of fluid overload) 5. Diastolic CHF - spironolactone and torsemide on hold 6. CAD - c/w ASA and Plavix 7. COPD - no evidence of exacerbation - c/w supplemental oxygen - c/w duoneb 8. A. fib - rate controlled with amiodarone - c/w ASA for anticoagulation 9. Hx of CVA with L sided hemiparesis - c/w ASA and statin 10. DLP - c/w statin 11. Hypothryoidism - c/w levothyroxine 12. Anxiety / Depression - c/w sertraline 13. DVT prophylaxis - c/w lovenox (renally adjusted) VS,Fishbone, I+O VS, Fishbone, I+O Laboratory Tests 06/17/16 12:55 Calcium Level 8.6 L, Aspartate Amino Transf (AST/SGOT) 18, Alanine Aminotransferase (ALT/SGPT) 15, Alkaline Phosphatase 70, Total Bilirubin 0.8, Total Protein 6.7, Albumin 2.7 L 06/18/16 06:24 Calcium Level 8.6 L, Aspartate Amino Transf (AST/SGOT) 19, Alanine Aminotransferase (ALT/SGPT) 19, Alkaline Phosphatase 67, Total Bilirubin 0.7, Total Protein 6.8, Albumin 2.6 L, Red Blood Count 4.60, Mean Corpuscular Volume 87.8, Mean Corpuscular Hemoglobin 26.9 L, Mean Corpuscular Hemoglobin Concent 30.6 L, Red Cell Distribution Width 14.9 H, Neutrophils (%) (Auto) 87.1 H, Lymphocytes (%) (Auto) 6.1 L, Monocytes (%) (Auto) 3.9, Eosinophils (%) (Auto) 0.1, Basophils (%) (Auto) 0.1, Neutrophils # (Auto) 10.8 H, Lymphocytes # (Auto ) 0.8 L, Monocytes # (Auto) 0.5, Eosinophils # (Auto) 0.0, Basophils # (Auto) 0.0 Vital Signs Date Time Temp Pulse Resp B/P Pulse Ox O2 Delivery O2 Flow Rate FiO2 06/18/16 06:00 97.9 64 20 142/64 92 High Flow Cannula 5.0 I&O- Last 24 Hours up to 6 AM 06/18/16 06:00 Intake Total 900 ml Output Total 0 ml Balance 900 ml SUDEEP OTTO MD Jun 18, 2016 09:46
[2016-06-18] MEDS ORDERED: POTASSIUM CHLORIDE 10 MEQ SR TABLET PO ONE (10:00)
[2016-06-18] MEDS: VITAMIN D 1,000 INTERNATIONAL UNITS TABLET PO SCH (10:34)
[2016-06-18] MEDS: SERTRALINE HCL 50 MG TAB PO SCH (10:34)
[2016-06-18] MEDS: CLOPIDOGREL 75 MG TAB PO SCH (10:34)
[2016-06-18] MEDS: AMIODARONE 200 MG TAB (PACERONE) PO SCH (10:34)
[2016-06-18] MEDS: BACLOFEN 5MG PER 1/2 TABLET PO SCH ×2 (10:34→20:11)
[2016-06-18] MEDS: ASPIRIN 81 MG ENTERIC TAB PO SCH (10:34)
[2016-06-18] MEDS: FOLIC ACID 1 MG TAB PO SCH (10:34)
[2016-06-18] MEDS: BISOPROLOL FUM 2.5 MG PER 1/2TAB PO SCH (10:36)
[2016-06-18] MEDS: ENOXAPARIN 30 MG/0.3 ML SYR (J1650) SC SCH (10:37)
[2016-06-18 14:00] VITALS: BP 145/64
[2016-06-18] MEDS: SENNA 8.6 MG TAB (SENOKOT) PO SCH (20:11)
[2016-06-18] MEDS: ATORVASTATIN 20 MG TAB PO SCH (20:11)
[2016-06-18] MEDS: VANCOMYCIN HCL 1,000 MG, VIAL MATE ADAPTER 1 EACH in D5W 250 ML IV SCH (20:12)
[2016-06-18 22:00] VITALS: BP 129/63
[2016-06-19] MEDS: PIPERACILLIN/TAZOBACTAM SOD 3.375 GM in D5W MINI-BAG PLUS 50 ML IV SCH ×5 (00:04→23:21)
[2016-06-19] MEDS: IPRATROPIUM 0.5MG/ALBUTEROL 2.5MG INH SOL UD 3ML (DUONEB)(J7620) NEB SCH ×4 (01:36→20:00)
[2016-06-19] MEDS: LEVOTHYROXINE 0.05 MG TAB (50 MCG) PO SCH (05:45)
[2016-06-19 06:00] VITALS: BP_SYST 13; BP_SYST 138; BP_DIAS 62
[2016-06-19 06:03] LABS: BASO # 0.1 K/mm3 (0.0-0.2); BASO % 0.6 % (0.0-1.0); EOS # 0.1 K/mm3 (0.0-0.50); EOS % 0.9 % (0.0-3.0); LARGE UNSTAINED CELL # 0.3 K/mm3 (0.0-0.4); LARGE UNSTAINED CELL % 2.7 % (0.0-4.0); LYMPH # 0.6 K/mm3 (1.5-4.5); LYMPH % 5.6 % (24.0-44.0); MEAN CORPUSCULAR HGB CONC 30.7 g/dl (32.0-36.5); MONO # 0.6 K/mm3 (0.0-0.8); MONO % 5.4 % (0.0-5.0); NEUTROPHILS # 9.2 K/mm3 (1.8-7.7); NEUTROPHILS % 84.8 % (36.0-66.0); PLATELET COUNT, AUTOMATED 331 k/mm3 (150-450); RED CELL DISTRIBUTION WIDTH 14.9 % (11.5-14.5); WHITE BLOOD COUNT 10.8 K/mm3 (4.0-10.0)
[2016-06-19 06:14] LABS: ALBUMIN 2.6 GM/DL (3.2-5.2); ALBUMIN/GLOBULIN RATIO 0.65 (1.00-1.93); BILIRUBIN,TOTAL 0.5 MG/DL (0.2-1.0); CALCIUM LEVEL 8.3 MG/DL (8.8-10.2); CREATININE FOR GFR 1.44 MG/DL (0.55-1.02); GLOMERULAR FILTRATION RATE 38.2 (>39); TOTAL PROTEIN 6.6 GM/DL (6.4-8.2)
[2016-06-19] MEDS ORDERED: POTASSIUM CHLORIDE 10 MEQ SR TABLET PO ONE (07:15)
[2016-06-19] MEDS: ADVAIR DISKUS 500/50 INH PWD INH SCH ×2 (07:32→20:28)
[2016-06-19] MEDS: KCL 10MEQ IN 100ML SWI (KRUN) 10 MEQ in APPROPRIATE DILUENT 1 EA IV SCH ×4 (08:27→10:34)
[2016-06-19] MEDS: FOLIC ACID 1 MG TAB PO SCH (08:28)
[2016-06-19] MEDS: VITAMIN D 1,000 INTERNATIONAL UNITS TABLET PO SCH (08:28)
[2016-06-19] MEDS: AMIODARONE 200 MG TAB (PACERONE) PO SCH (08:28)
[2016-06-19] MEDS: SERTRALINE HCL 50 MG TAB PO SCH (08:28)
[2016-06-19] MEDS: ASPIRIN 81 MG ENTERIC TAB PO SCH (08:28)
[2016-06-19] MEDS: BACLOFEN 5MG PER 1/2 TABLET PO SCH ×2 (08:29→20:17)
[2016-06-19] MEDS: BISOPROLOL FUM 2.5 MG PER 1/2TAB PO SCH (08:29)
[2016-06-19] MEDS: ENOXAPARIN 30 MG/0.3 ML SYR (J1650) SC SCH (08:30)
[2016-06-19] MEDS: CLOPIDOGREL 75 MG TAB PO SCH (08:30)
--- NOTE | 2016-06-19 11:45 | IPNPDOC ---
Text Note Date of Service The patient was seen on 06/19/16. NOTE Subjective: Patient is a 71 year old female with a PMHx of COPD (on 2L at night), Pulmonary HTN, Diastolic CHF, CVA w/ L hemiparesis, CAD, Hypothyroidism, A. fib , Depression / Anxiety, CKD3, and Hx of aspiration pneumonia who presented to the ED with complaints of shortness of breath, cough and fever at [facility]. Patient was suspected of having an aspiration pneumonia after she failed to remain compliant with her dietary recommendations. Patient was seen and examined at the bedside. She received her swallow evaluation yesterday and tolerating it. Was started on feeding based on their recommendations. No new complains today. Objective: Vitals (See below) General: Lying in bed, no acute distress, comfortable, AAOx3 HEENT: NC, AT CVS: RRR, +S1S2 Lungs: Fair air entry b/l, + Rhonchi at b/l lower lung joyner Abdomen: Soft, ND, NT, +BSx4 Extremities: +PPx4, - Edema, - Calf tenderness Assessment and plan: 1. Acute hypoxic respiratory failure - likely 2/2 aspiration pneumonia - presented with shortness of breath, cough and fever - Physical reveals some rhonchi at the left lung base - CXR 06/16: does not reveal any significant change; 06/14 reveals mild linear scarring vs. discoid atelectasis at R - CT chest 06/17: course b/l subsegmental lower lobe discoid atelectasis, 7mm non- calcified, spiculated nodule at R upper lobe, - Blood cultures, Respiratory panel and Influenza negative - c/w supplemental oxygen - Will c/w Vancomycin and Zosyn (Day #4) 2. s/p Nausea / vomiting with oral intake - possibly 2/2 esophageal obstruction - Swallow study completed; was able to tolerate oral feeds with recommendations from speech therapy - CT chest: without any esophageal abnormalities noted - Surgery (Dr. Denney) following - Will c/w modified diet 3. Hypernatremia - possibly 2/2 dehydration - Improving - Will increase free water intake PO 4. Elevated creatinine on CKD3 - possibly 2/2 pre-renal 2/2 vomiting and poor oral intact - Cr baseline of 1.2 - Creatinine continues to decline - s/p IV fluid hydration - Will need to restart maintenance diuretics when euvolemic 5. Diastolic CHF - spironolactone and torsemide on hold 6. CAD - c/w ASA and Plavix 7. COPD - no evidence of exacerbation - c/w supplemental oxygen - c/w duoneb 8. A. fib - rate controlled with amiodarone - c/w ASA for anticoagulation 9. Hx of CVA with L sided hemiparesis - c/w ASA and statin 10. DLP - c/w statin 11. Hypothryoidism - c/w levothyroxine 12. Anxiety / Depression - c/w sertraline 13. DVT prophylaxis - c/w lovenox (renally adjusted) VS,Fishbone, I+O VS, Fishbone, I+O Laboratory Tests 06/19/16 05:37 Calcium Level 8.3 L, Aspartate Amino Transf (AST/SGOT) 19, Alanine Aminotransferase (ALT/SGPT) 18, Alkaline Phosphatase 64, Total Bilirubin 0.5, Total Protein 6.6, Albumin 2.6 L, Red Blood Count 4.53, Mean Corpuscular Volume 88.0, Mean Corpuscular Hemoglobin 27.0, Mean Corpuscular Hemoglobin Concent 30.7 L, Red Cell Distribution Width 14.9 H, Neutrophils (%) (Auto) 84.8 H, Lymphocytes (%) (Auto) 5.6 L, Monocytes (%) (Auto) 5.4 H, Eosinophils (%) (Auto ) 0.9, Basophils (%) (Auto) 0.6, Neutrophils # (Auto) 9.2 H, Lymphocytes # (Auto ) 0.6 L, Monocytes # (Auto) 0.6, Eosinophils # (Auto) 0.1, Basophils # (Auto) 0.1 Vital Signs Date Time Temp Pulse Resp B/P Pulse Ox O2 Delivery O2 Flow Rate FiO2 06/19/16 08:29 60 134/62 06/19/16 06:00 96.2 16 94 Nasal Cannula 5.0 I&O- Last 24 Hours up to 6 AM 06/19/16 05:59 Intake Total 850 ml Output Total 0 ml Balance 850 ml SUDEEP OTTO MD Jun 19, 2016 11:45
[2016-06-19 14:00] VITALS: BP 132/67
--- NOTE | 2016-06-19 19:33 | PHACANCOPD ---
PHARMACY VANCOMYCIN DOSING Pt Demographics Demographics Patient Age:71 , Weight:103.900 , Gender: female Adjusted Body Weight Date: 06/19/16, Adjusted Body Weight: Kg Events Past 24 Hours Events Past 24 Hours: NO: Change in CrCl, Dialysis, Diuretic Therapy, Elevation in WBC, Fever, Other, Pending Diagnostics, Pending Procedures Vancomycin Vancomycin Target Ranges: 10-20 mcg/ml Vancomycin Load Y/N: No Load Dose Date Time Vancomycin Load Dose: Date: Time: Vancomycin Dose Date: 06/19/16. Current Vancomycin Dose: [750MG Q24H] Intermittent Dosing?: No Labs Labs Item Value Date Time Vancomycin Level Trough 23.0 UG/ML H 06/19/16 1847 White Blood Count 10.8 K/mm3 H 06/19/16 0537 Creatinine 1.44 MG/DL H 06/19/16 0537 Vital Signs Label Value Date Time Patient Temperature 98.1 degrees F 06/19/16 1400 Temperature Source Tympanic 06/19/16 1400 Micro Microbiology 06/16/16 Blood Culture - Preliminary, Resulted No Growth after 72 hours. All specime... 06/16/16 Influenza Virus Type A Antigen - Final, Complete 06/16/16 Influenza Virus Type B Antigen - Final, Complete 06/16/16 Respiratory Virus Panel (PCR) ([facility]) - Final, Complete Creatinine Clearance Date:06/19/16. Creatinine Clearance: . Pending Labs Trough 03-05 @1900 Assessment and Plan Maintaining Current Dose?: No Reason for dose change: Trough too high Pharmacist Note Pharmacist Note Date: 06/19/16. Pharmacist note:Patient was being dosed at 1000mg q24h. Trough came back at 23. Reduced dose to 750mg q24h with a trough ordered for 3-5 @ 1900. Will continue to monitor and make adjustments as needed. ZACHARIAH ROBERT PHARMACY Jun 19, 2016 19:33
[2016-06-19] MEDS: SENNA 8.6 MG TAB (SENOKOT) PO SCH (19:38)
[2016-06-19] MEDS: VANCOMYCIN HCL 750 MG, VIAL MATE ADAPTER 1 EACH in D5W 250 ML IV SCH (20:18)
[2016-06-19] MEDS: ATORVASTATIN 20 MG TAB PO SCH (20:18)
[2016-06-19 22:00] VITALS: BP 120/53
[2016-06-20] MEDS: IPRATROPIUM 0.5MG/ALBUTEROL 2.5MG INH SOL UD 3ML (DUONEB)(J7620) NEB SCH ×4 (01:38→19:56)
[2016-06-20] MEDS: LEVOTHYROXINE 0.05 MG TAB (50 MCG) PO SCH (05:56)
[2016-06-20] MEDS: PIPERACILLIN/TAZOBACTAM SOD 3.375 GM in D5W MINI-BAG PLUS 50 ML IV SCH ×3 (05:56→17:07)
[2016-06-20 06:00] VITALS: BP 119/57
[2016-06-20 06:00] LABS: BASO # 0.1 K/mm3 (0.0-0.2); BASO % 0.8 % (0.0-1.0); EOS # 0.4 K/mm3 (0.0-0.50); EOS % 4.4 % (0.0-3.0); LARGE UNSTAINED CELL # 0.3 K/mm3 (0.0-0.4); LYMPH # 0.8 K/mm3 (1.5-4.5); LYMPH % 8.9 % (24.0-44.0); MEAN CORPUSCULAR HEMOGLOBIN 26.7 pg (27.0-33.0); MEAN CORPUSCULAR HGB CONC 30.7 g/dl (32.0-36.5); MEAN CORPUSCULAR VOLUME 87.1 fl (80.0-96.0); MONO # 0.6 K/mm3 (0.0-0.8); MONO % 5.9 % (0.0-5.0); NEUTROPHILS # 7.3 K/mm3 (1.8-7.7); NEUTROPHILS % 77.1 % (36.0-66.0); PLATELET COUNT, AUTOMATED 290 k/mm3 (150-450); RED CELL DISTRIBUTION WIDTH 14.9 % (11.5-14.5); WHITE BLOOD COUNT 9.4 K/mm3 (4.0-10.0)
[2016-06-20 06:24] LABS: ALBUMIN 2.3 GM/DL (3.2-5.2); ALBUMIN/GLOBULIN RATIO 0.59 (1.00-1.93); BILIRUBIN,TOTAL 0.6 MG/DL (0.2-1.0); CALCIUM LEVEL 8.1 MG/DL (8.8-10.2); CREATININE FOR GFR 1.32 MG/DL (0.55-1.02); GLOMERULAR FILTRATION RATE 42.2 (>39); POTASSIUM SERUM 3.5 MEQ/L (3.5-5.1); TOTAL PROTEIN 6.2 GM/DL (6.4-8.2)
[2016-06-20] MEDS: ADVAIR DISKUS 500/50 INH PWD INH SCH ×2 (08:11→19:56)
[2016-06-20] MEDS: BISOPROLOL FUM 2.5 MG PER 1/2TAB PO SCH (08:30)
[2016-06-20] MEDS: ENOXAPARIN 30 MG/0.3 ML SYR (J1650) SC SCH (08:31)
[2016-06-20] MEDS: VITAMIN D 1,000 INTERNATIONAL UNITS TABLET PO SCH (08:31)
[2016-06-20] MEDS: CLOPIDOGREL 75 MG TAB PO SCH (08:31)
[2016-06-20] MEDS: SERTRALINE HCL 50 MG TAB PO SCH (08:31)
[2016-06-20] MEDS: ASPIRIN 81 MG ENTERIC TAB PO SCH (08:31)
[2016-06-20] MEDS: FOLIC ACID 1 MG TAB PO SCH (08:31)
[2016-06-20] MEDS: AMIODARONE 200 MG TAB (PACERONE) PO SCH (08:31)
[2016-06-20] MEDS: BACLOFEN 5MG PER 1/2 TABLET PO SCH ×2 (08:31→20:00)
--- NOTE | 2016-06-20 09:55 | IPNPDOC ---
Text Note Date of Service The patient was seen on 06/20/16. NOTE Subjective: Patient is a 71 year old female with a PMHx of COPD (on 2L at night), Pulmonary HTN, Diastolic CHF, CVA w/ L hemiparesis, CAD, Hypothyroidism, A. fib , Depression / Anxiety, CKD3, and Hx of aspiration pneumonia who presented to the ED with complaints of shortness of breath, cough and fever at [facility]. Patient was suspected of having an aspiration pneumonia after she failed to remain compliant with her dietary recommendations. Patient was seen and examined at the bedside. Has been tolerating modified diet. No new complaints. Objective: Vitals (See below) General: Lying in bed, no acute distress, comfortable, AAOx3 HEENT: NC, AT CVS: RRR, +S1S2 Lungs: Fair air entry b/l, + Rhonchi at b/l lower lung joyner Abdomen: Soft, ND, NT, +BSx4 Extremities: +PPx4, - Edema, - Calf tenderness Assessment and plan: 1. Acute hypoxic respiratory failure - likely 2/2 aspiration pneumonia - presented with shortness of breath, cough and fever - Physical reveals some rhonchi at the left lung base - Leukocytosis resolved - Blood cultures, Respiratory panel and Influenza negative - CXR 06/16: does not reveal any significant change; 06/14 reveals mild linear scarring vs. discoid atelectasis at R - CT chest 06/17: course b/l subsegmental lower lobe discoid atelectasis, 7mm non- calcified, spiculated nodule at R upper lobe - c/w supplemental oxygen; will try and decrease requirements today - Will add incentive spirometry - Will c/w Vancomycin and Zosyn (Day #5) 2. s/p Nausea / vomiting with oral intake - possibly 2/2 esophageal obstruction - Swallow study completed; was able to tolerate oral feeds with recommendations from speech therapy - CT chest: without any esophageal abnormalities noted - Surgery (Dr. Denney) following - Will c/w modified diet 3. Hypernatremia - possibly 2/2 dehydration - Improving - c/w Free water intake PO 4. Elevated creatinine on CKD3 - possibly 2/2 pre-renal 2/2 vomiting and poor oral intact - Cr baseline of 1.2 - Creatinine continues to decline - s/p IV fluid hydration - Will need to restart maintenance diuretics when euvolemic 5. Diastolic CHF - spironolactone and torsemide on hold 6. CAD - c/w ASA and Plavix 7. COPD - no evidence of exacerbation - c/w supplemental oxygen - c/w duoneb 8. A. fib - rate controlled with amiodarone - c/w ASA for anticoagulation 9. Hx of CVA with L sided hemiparesis - c/w ASA and statin 10. DLP - c/w statin 11. Hypothyroidism - c/w levothyroxine 12. Anxiety / Depression - c/w sertraline 13. DVT prophylaxis - c/w lovenox (renally adjusted) VS,Fishbone, I+O VS, Fishbone, I+O Laboratory Tests 06/20/16 05:47 Calcium Level 8.1 L, Aspartate Amino Transf (AST/SGOT) 17, Alanine Aminotransferase (ALT/SGPT) 20, Alkaline Phosphatase 65, Total Bilirubin 0.6, Total Protein 6.2 L, Albumin 2.3 L, Red Blood Count 4.53, Mean Corpuscular Volume 87.1, Mean Corpuscular Hemoglobin 26.7 L, Mean Corpuscular Hemoglobin Concent 30.7 L, Red Cell Distribution Width 14.9 H, Neutrophils (%) (Auto) 77.1 H, Lymphocytes (%) (Auto) 8.9 L, Monocytes (%) (Auto) 5.9 H, Eosinophils (%) ( Auto) 4.4 H, Basophils (%) (Auto) 0.8, Neutrophils # (Auto) 7.3, Lymphocytes # ( Auto) 0.8 L, Monocytes # (Auto) 0.6, Eosinophils # (Auto) 0.4, Basophils # (Auto ) 0.1 Vital Signs Date Time Temp Pulse Resp B/P Pulse Ox O2 Delivery O2 Flow Rate FiO2 06/20/16 08:30 96 124/62 06/20/16 06:00 96.9 16 92 Nasal Cannula 5.0 I&O- Last 24 Hours up to 6 AM 06/20/16 06:00 Intake Total 3115 ml Output Total 0 ml Balance 3115 ml SUDEEP OTTO MD Jun 20, 2016 09:55
[2016-06-20 14:00] VITALS: BP 135/65
[2016-06-20] MEDS: ACETAMINOPHEN TAB 650MG DOSE (2X325MG) PO PRN (17:07)
--- NOTE | 2016-06-20 19:49 | PHACANCOPD ---
PHARMACY VANCOMYCIN DOSING Pt Demographics Demographics Patient Age:71 , Weight:103.900 , Gender: female Adjusted Body Weight Date: 06/19/16, Adjusted Body Weight: Kg Events Past 24 Hours Events Past 24 Hours: NO: Change in CrCl, Dialysis, Diuretic Therapy, Elevation in WBC, Fever, Other, Pending Diagnostics, Pending Procedures Vancomycin Vancomycin Target Ranges: 10-20 mcg/ml Vancomycin Load Y/N: No Load Dose Date Time Vancomycin Load Dose: Date: Time: Vancomycin Dose Date: 06/19/16. Current Vancomycin Dose: [750MG Q24H] Intermittent Dosing?: No Labs Labs Item Value Date Time White Blood Count 9.4 K/mm3 06/20/16 0547 Creatinine 1.32 MG/DL H 06/20/16 0547 Vancomycin Level Trough 21.4 UG/ML H 06/20/16 1852 Vital Signs Label Value Date Time Patient Temperature 98.6 degrees F 06/20/16 1400 Temperature Source Tympanic 06/20/16 1400 Micro Microbiology 06/16/16 Blood Culture - Preliminary, Resulted No Growth after 72 hours. All specime... 06/16/16 Influenza Virus Type A Antigen - Final, Complete 06/16/16 Influenza Virus Type B Antigen - Final, Complete 06/16/16 Respiratory Virus Panel (PCR) ([facility]) - Final, Complete Creatinine Clearance Date:06/20/16. Creatinine Clearance: [37]. Pending Labs Trough 03-06 @1900 Assessment and Plan Maintaining Current Dose?: No Reason for dose change: Trough too high Pharmacist Note Pharmacist Note Date: 06/19/16. Pharmacist note:Trough of 21.4 is slightly above target range. Will give 750mg tonight then put on hold until 3-6 @1900 trough comes back. Will reassess for future dosing at that time. Will continue to monitor and make adjustments as needed. ZACHARIAH ROBERT PHARMACY Jun 20, 2016 19:49
[2016-06-20] MEDS: VANCOMYCIN HCL 750 MG, VIAL MATE ADAPTER 1 EACH in D5W 250 ML IV SCH (20:00)
[2016-06-20] MEDS: SENNA 8.6 MG TAB (SENOKOT) PO SCH (20:00)
[2016-06-20] MEDS: ATORVASTATIN 20 MG TAB PO SCH (20:00)
[2016-06-20 22:00] VITALS: BP 130/62
[2016-06-21] MEDS: PIPERACILLIN/TAZOBACTAM SOD 3.375 GM in D5W MINI-BAG PLUS 50 ML IV SCH ×5 (00:14→23:51)
[2016-06-21] MEDS: IPRATROPIUM 0.5MG/ALBUTEROL 2.5MG INH SOL UD 3ML (DUONEB)(J7620) NEB SCH ×4 (01:17→19:47)
[2016-06-21] MEDS: LEVOTHYROXINE 0.05 MG TAB (50 MCG) PO SCH (05:38)
[2016-06-21 06:00] VITALS: BP 125/60
[2016-06-21 06:31] LABS: BASO # 0.1 K/mm3 (0.0-0.2); BASO % 0.7 % (0.0-1.0); EOS # 0.6 K/mm3 (0.0-0.50); EOS % 5.3 % (0.0-3.0); LARGE UNSTAINED CELL # 0.5 K/mm3 (0.0-0.4); LARGE UNSTAINED CELL % 4.3 % (0.0-4.0); LYMPH # 0.9 K/mm3 (1.5-4.5); LYMPH % 8.8 % (24.0-44.0); MEAN CORPUSCULAR HEMOGLOBIN 26.9 pg (27.0-33.0); MEAN CORPUSCULAR HGB CONC 30.8 g/dl (32.0-36.5); MEAN CORPUSCULAR VOLUME 87.5 fl (80.0-96.0); MONO # 0.5 K/mm3 (0.0-0.8); MONO % 4.7 % (0.0-5.0); NEUTROPHILS # 8.1 K/mm3 (1.8-7.7); NEUTROPHILS % 76.2 % (36.0-66.0); PLATELET COUNT, AUTOMATED 259 k/mm3 (150-450); RED CELL DISTRIBUTION WIDTH 14.9 % (11.5-14.5); WHITE BLOOD COUNT 10.6 K/mm3 (4.0-10.0)
[2016-06-21 06:53] LABS: ALBUMIN 2.2 GM/DL (3.2-5.2); ALBUMIN/GLOBULIN RATIO 0.56 (1.00-1.93); BILIRUBIN,TOTAL 0.7 MG/DL (0.2-1.0); CREATININE FOR GFR 1.04 MG/DL (0.55-1.02); GLOMERULAR FILTRATION RATE 55.6 (>39); POTASSIUM SERUM 3.3 MEQ/L (3.5-5.1); TOTAL PROTEIN 6.1 GM/DL (6.4-8.2)
[2016-06-21] MEDS ORDERED: POTASSIUM CHLORIDE 10 MEQ SR TABLET PO ONE (07:00)
[2016-06-21] MEDS: BISOPROLOL FUM 2.5 MG PER 1/2TAB PO SCH (07:52)
[2016-06-21] MEDS: FOLIC ACID 1 MG TAB PO SCH (07:53)
[2016-06-21] MEDS: VITAMIN D 1,000 INTERNATIONAL UNITS TABLET PO SCH (07:53)
[2016-06-21] MEDS: ASPIRIN 81 MG ENTERIC TAB PO SCH (07:53)
[2016-06-21] MEDS: SERTRALINE HCL 50 MG TAB PO SCH (07:53)
[2016-06-21] MEDS: AMIODARONE 200 MG TAB (PACERONE) PO SCH (07:53)
[2016-06-21] MEDS: CLOPIDOGREL 75 MG TAB PO SCH (07:53)
[2016-06-21] MEDS: BACLOFEN 5MG PER 1/2 TABLET PO SCH ×2 (07:53→20:32)
[2016-06-21] MEDS: ENOXAPARIN 30 MG/0.3 ML SYR (J1650) SC SCH (07:54)
[2016-06-21] MEDS: ADVAIR DISKUS 500/50 INH PWD INH SCH ×2 (08:29→20:15)
--- NOTE | 2016-06-21 11:05 | IPNPDOC ---
Text Note Date of Service The patient was seen on 06/21/16. NOTE Subjective: Patient is a 71 year old female with a PMHx of COPD (on 2L at night), Pulmonary HTN, Diastolic CHF, CVA w/ L hemiparesis, CAD, Hypothyroidism, A. fib , Depression / Anxiety, CKD3, and Hx of aspiration pneumonia who presented to the ED with complaints of shortness of breath, cough and fever at [facility]. Patient was suspected of having an aspiration pneumonia after she failed to remain compliant with her dietary recommendations. Patient was seen and examined at the bedside. No new complaints, has been going down on requirement for supplemental oxygen. Objective: Vitals (See below) General: Lying in bed, no acute distress, comfortable, AAOx3 HEENT: NC, AT CVS: RRR, +S1S2 Lungs: Fair air entry b/l, + Rhonchi at b/l lower lung joyner Abdomen: Soft, ND, NT, +BSx4 Extremities: +PPx4, - Edema, - Calf tenderness Assessment and plan: 1. Acute hypoxic respiratory failure - likely 2/2 aspiration pneumonia - presented with shortness of breath, cough and fever - Physical reveals some rhonchi at the left lung base - Leukocytosis resolved - Blood cultures, Respiratory panel and Influenza negative - CXR 06/16: does not reveal any significant change; 06/14 reveals mild linear scarring vs. discoid atelectasis at R - CT chest 06/17: course b/l subsegmental lower lobe discoid atelectasis, 7mm non- calcified, spiculated nodule at R upper lobe - c/w supplemental oxygen; continue to decline in supplemental requirements - c/w incentive spirometry - Will c/w Vancomycin and Zosyn (Day #6) 2. s/p Nausea / vomiting with oral intake - possibly 2/2 esophageal obstruction - Swallow study completed; was able to tolerate oral feeds with recommendations from speech therapy - CT chest: without any esophageal abnormalities noted - Surgery (Dr. Denney) following - Will c/w modified diet 3. Large lung nodule - possible malignancy - Will need further evaluation as an outpatient - Referral to pulmonary 4. s/p Hypernatremia - possibly 2/2 dehydration - Improving - c/w Free water intake PO 5. s/p Elevated creatinine on CKD3 - possibly 2/2 pre-renal 2/2 vomiting and poor oral intact - Cr baseline of 1.2 - Creatinine continues to decline - s/p IV fluid hydration - Will need to restart maintenance diuretics when euvolemic 6. Diastolic CHF - spironolactone and torsemide on hold 7. CAD - c/w ASA and Plavix 8. COPD - no evidence of exacerbation - c/w supplemental oxygen - c/w duoneb 9. A. fib - rate controlled with amiodarone - c/w ASA for anticoagulation 10. Hx of CVA with L sided hemiparesis - c/w ASA and statin 11. DLP - c/w statin 12. Hypothyroidism - c/w levothyroxine 13. Anxiety / Depression - c/w sertraline 14. DVT prophylaxis - c/w lovenox (renally adjusted) VS,Fishbone, I+O VS, Fishbone, I+O Laboratory Tests 06/21/16 05:38 Calcium Level 8.0 L, Aspartate Amino Transf (AST/SGOT) 12 L, Alanine Aminotransferase (ALT/SGPT) 14, Alkaline Phosphatase 58, Total Bilirubin 0.7, Total Protein 6.1 L, Albumin 2.2 L, Red Blood Count 4.36, Mean Corpuscular Volume 87.5, Mean Corpuscular Hemoglobin 26.9 L, Mean Corpuscular Hemoglobin Concent 30.8 L, Red Cell Distribution Width 14.9 H, Neutrophils (%) (Auto) 76.2 H, Lymphocytes (%) (Auto) 8.8 L, Monocytes (%) (Auto) 4.7, Eosinophils (%) (Auto ) 5.3 H, Basophils (%) (Auto) 0.7, Neutrophils # (Auto) 8.1 H, Lymphocytes # ( Auto) 0.9 L, Monocytes # (Auto) 0.5, Eosinophils # (Auto) 0.6 H, Basophils # ( Auto) 0.1 Vital Signs Date Time Temp Pulse Resp B/P Pulse Ox O2 Delivery O2 Flow Rate FiO2 06/21/16 07:52 52 128/61 06/21/16 06:00 97.2 18 92 Nasal Cannula 3.0 I&O- Last 24 Hours up to 6 AM 06/21/16 06:00 Intake Total 1385 ml Output Total 0 ml Balance 1385 ml SUDEEP OTTO MD Jun 21, 2016 11:05
[2016-06-21 14:00] VITALS: BP 115/68
[2016-06-21] MEDS: VANCOMYCIN HCL 750 MG, VIAL MATE ADAPTER 1 EACH in D5W 250 ML IV SCH (20:31)
[2016-06-21] MEDS: ATORVASTATIN 20 MG TAB PO SCH (20:32)
[2016-06-21] MEDS: SENNA 8.6 MG TAB (SENOKOT) PO SCH (20:32)
[2016-06-21 22:00] VITALS: BP 141/67
[2016-06-22] MEDS: IPRATROPIUM 0.5MG/ALBUTEROL 2.5MG INH SOL UD 3ML (DUONEB)(J7620) NEB SCH ×4 (01:36→19:58)
[2016-06-22] MEDS: LEVOTHYROXINE 0.05 MG TAB (50 MCG) PO SCH (05:40)
[2016-06-22] MEDS: PIPERACILLIN/TAZOBACTAM SOD 3.375 GM in D5W MINI-BAG PLUS 50 ML IV SCH (05:40)
[2016-06-22 06:00] VITALS: BP 137/63
[2016-06-22 06:31] LABS: BASO # 0.1 K/mm3 (0.0-0.2); BASO % 0.8 % (0.0-1.0); EOS # 0.7 K/mm3 (0.0-0.50); EOS % 4.5 % (0.0-3.0); LARGE UNSTAINED CELL # 0.8 K/mm3 (0.0-0.4); LARGE UNSTAINED CELL % 4.8 % (0.0-4.0); LYMPH # 1.3 K/mm3 (1.5-4.5); LYMPH % 8.1 % (24.0-44.0); MEAN CORPUSCULAR HEMOGLOBIN 26.9 pg (27.0-33.0); MEAN CORPUSCULAR HGB CONC 30.7 g/dl (32.0-36.5); MEAN CORPUSCULAR VOLUME 87.6 fl (80.0-96.0); MONO # 0.8 K/mm3 (0.0-0.8); MONO % 5.1 % (0.0-5.0); NEUTROPHILS # 12.2 K/mm3 (1.8-7.7); NEUTROPHILS % 76.7 % (36.0-66.0); PLATELET COUNT, AUTOMATED 283 k/mm3 (150-450); RED CELL DISTRIBUTION WIDTH 14.9 % (11.5-14.5); WHITE BLOOD COUNT 15.9 K/mm3 (4.0-10.0)
[2016-06-22 07:56] LABS: ALBUMIN 2.4 GM/DL (3.2-5.2); ALBUMIN/GLOBULIN RATIO 0.75 (1.00-1.93); BILIRUBIN,TOTAL 0.8 MG/DL (0.2-1.0); CALCIUM LEVEL 8.1 MG/DL (8.8-10.2); CREATININE FOR GFR 1.04 MG/DL (0.55-1.02); GLOMERULAR FILTRATION RATE 55.6 (>39); POTASSIUM SERUM 3.6 MEQ/L (3.5-5.1); TOTAL PROTEIN 5.6 GM/DL (6.4-8.2)
[2016-06-22] MEDS: ADVAIR DISKUS 500/50 INH PWD INH SCH ×2 (08:00→19:59)
[2016-06-22] MEDS: FOLIC ACID 1 MG TAB PO SCH (09:02)
[2016-06-22] MEDS: VITAMIN D 1,000 INTERNATIONAL UNITS TABLET PO SCH (09:02)
[2016-06-22] MEDS: CLOPIDOGREL 75 MG TAB PO SCH (09:02)
[2016-06-22] MEDS: AMIODARONE 200 MG TAB (PACERONE) PO SCH (09:02)
[2016-06-22] MEDS: SERTRALINE HCL 50 MG TAB PO SCH (09:02)
[2016-06-22] MEDS: ASPIRIN 81 MG ENTERIC TAB PO SCH (09:02)
[2016-06-22] MEDS: BISOPROLOL FUM 2.5 MG PER 1/2TAB PO SCH (09:02)
[2016-06-22] MEDS: BACLOFEN 5MG PER 1/2 TABLET PO SCH ×2 (09:02→20:31)
[2016-06-22] MEDS: ENOXAPARIN 30 MG/0.3 ML SYR (J1650) SC SCH (09:03)
--- NOTE | 2016-06-22 09:59 | IPNPDOC ---
Subjective Date Seen The patient was seen on 06/22/16. Subjective Chief Complaint/HPI The patient is a 71-year-old female admitted with a reason for visit of Aspiration Pneumonia. General: Denies: Chills, Night Sweats Constitutional: Denies: Chills, Fever Eyes: Denies: Pain, Vision change ENT: Denies: Ear Pain, Head Aches Skin: Denies: Lesions, Rash Pulmonary: Reports: Dyspnea Cardiovascular: Denies: Chest Pain, Palpitations Gastrointestinal: Denies: Nausea, Vomiting Genitourinary: Denies: Dysuria, Frequency Hematologic: Denies: Bleeding Excessively, Bruising Objective Physical Examination General Exam: Positive: Alert, Cooperative, No Acute Distress ENT Exam: Positive: Atraumatic, Mucous membr. moist/pink Neck Exam: Negative: JVD Chest Exam: Positive: Diminished, Negative: Rales, Rhonchi Heart Exam: Positive: Normal S1, Normal S2, Rate Normal Abdomen Exam: Positive: Soft, Negative: Tenderness Extremity Exam: Positive: Normal pulses, Negative: Edema Assessment /Plan Plan/VTE VTE Prophylaxis Ordered?: Yes Plan Acute Hypoxic Respiratory failure - likely 2/[address] chest 06/17: course b/l subsegmental lower lobe discoid atelectasis, 7mm non- calcified, spiculated nodule at R upper lobe Patient currently requiring 3 L of oxygen via nasal cannula, at baseline requires 2 L at night only Blood cultures, Respiratory panel and Influenza negative s/p Vanco and Zosyn x 7 days Continue with incentive spirometry, albuterol, Advair We will down titrate the patient's oxygen requirement as tolerated Right upper extremity swelling likely secondary to IV infiltration Patient started on by mouth Keflex We will continue to monitor the infiltration site ?Dysphagia possibly 2/[address] chest: without any esophageal abnormalities noted Speech therapy eval noted; cont oral feeds with modified diet Surgery on board Large lung nodule noted on Chest CT - possible malignancy Will need a repeat CT scan of the chest in 3 months for further evaluation and monitoring s/p Hypernatremia likely 2/2 dehydration, resolved Acute superimposed on chronic kidney disease likely secondary to decreased by mouth intake, vomiting Serum Cr baseline of 1.2 Serum creatinine at baseline today s/p IV fluid hydration Diastolic CHF, stable Appears euvolemic today We will restart spironolactone and torsemide tomorrow CAD Continue ASA, Plavix, bisoprolol, statin COPD with chronic hypoxia requiring 2 L of oxygen at night, stable Continue nebs, Advair Continue supplemental oxygen A. fib Rate controlled with amiodarone On aspirin Hx of CVA with L sided hemiparesis Continue ASA and statin Dyslipidemia Continue statin Hypothyroidism Continue levothyroxine Anxiety / Depression Continue sertraline DVT prophylaxis Subcutaneous lovenox Disposition-we will continue to monitor the patient's respiratory status, and down titrate supplemental oxygen as tolerated. Anticipate DC back to [facility] in the next 24-48 hours. VS, I&O, 24H, Fishbone Vital Signs/I&O Vital Signs Date Time Temp Pulse Resp B/P Pulse Ox O2 Delivery O2 Flow Rate FiO2 06/22/16 09:02 84 137/63 06/22/16 08:00 Nasal Cannula 3.0 06/22/16 06:00 97.5 20 93 I&O- Last 24 Hours up to 6 AM 06/22/16 06:00 Intake Total 1410 ml Balance 1410 ml Laboratory Data 24H LABS Laboratory Tests 2 06/21/16 18:58: Vancomycin Level Trough 19.5 06/22/16 06:10: White Blood Count 15.9H, Red Blood Count 4.67, Hemoglobin 12.6, Hematocrit 40.9 , Mean Corpuscular Volume 87.6, Mean Corpuscular Hemoglobin 26.9L, Mean Corpuscular Hemoglobin Concent 30.7L, Red Cell Distribution Width 14.9H, Platelet Count 283, Neutrophils (%) (Auto) 76.7H, Lymphocytes (%) (Auto) 8.1L, Monocytes (%) (Auto) 5.1H, Eosinophils (%) (Auto) 4.5H, Basophils (%) (Auto) 0.8 , Neutrophils # (Auto) 12.2H, Lymphocytes # (Auto) 1.3L, Monocytes # (Auto) 0.8 , Eosinophils # (Auto) 0.7H, Basophils # (Auto) 0.1, Large Unclassified Cells # 0.8H, Large Unclassified Cells % 4.8H 06/22/16 06:44: Blood Urea Nitrogen 12, Creatinine 1.04H, Sodium Level 141, Potassium Level 3.6 , Chloride Level 106, Carbon Dioxide Level 25, Calcium Level 8.1L, Aspartate Amino Transf (AST/SGOT) 10L, Alanine Aminotransferase (ALT/SGPT) 15, Alkaline Phosphatase 61, Total Bilirubin 0.8, Total Protein 5.6L, Albumin 2.4L, Albumin/ Globulin Ratio 0.75L, Anion Gap 10, Glomerular Filtration Rate 55.6 CBC/BMP Laboratory Tests 06/22/16 06:10 Red Blood Count 4.67, Mean Corpuscular Volume 87.6, Mean Corpuscular Hemoglobin 26.9 L, Mean Corpuscular Hemoglobin Concent 30.7 L, Red Cell Distribution Width 14.9 H, Neutrophils (%) (Auto) 76.7 H, Lymphocytes (%) (Auto) 8.1 L, Monocytes ( %) (Auto) 5.1 H, Eosinophils (%) (Auto) 4.5 H, Basophils (%) (Auto) 0.8, Neutrophils # (Auto) 12.2 H, Lymphocytes # (Auto) 1.3 L, Monocytes # (Auto) 0.8 , Eosinophils # (Auto) 0.7 H, Basophils # (Auto) 0.1 06/22/16 06:44 Calcium Level 8.1 L, Aspartate Amino Transf (AST/SGOT) 10 L, Alanine Aminotransferase (ALT/SGPT) 15, Alkaline Phosphatase 61, Total Bilirubin 0.8, Total Protein 5.6 L, Albumin 2.4 L Microbiology Microbiology 06/16/16 Blood Culture - Final, Complete NO GROWTH AFTER 5 DAYS 06/16/16 Influenza Virus Type A Antigen - Final, Complete 06/16/16 Influenza Virus Type B Antigen - Final, Complete 06/16/16 Respiratory Virus Panel (PCR) ([facility]) - Final, Complete AMADEO MONROY MD Jun 22, 2016 09:59
[2016-06-22] MEDS: CEPHALEXIN 500 MG CAP PO SCH ×4 (10:43→20:32)
[2016-06-22 14:00] VITALS: BP 161/70
[2016-06-22] MEDS: NYSTATIN 100,000 UNITS/GM TOPICAL PWD 15 GM TOP SCH (19:27)
[2016-06-22] MEDS: ATORVASTATIN 20 MG TAB PO SCH (20:32)
[2016-06-22] MEDS: SENNA 8.6 MG TAB (SENOKOT) PO SCH (20:32)
[2016-06-22] MEDS: CEPACOL LOZENGE PO PRN (20:33)
[2016-06-22 22:00] VITALS: BP 123/58
[2016-06-23] MEDS: IPRATROPIUM 0.5MG/ALBUTEROL 2.5MG INH SOL UD 3ML (DUONEB)(J7620) NEB SCH ×4 (01:37→20:00)
[2016-06-23 06:00] VITALS: BP 141/65
[2016-06-23] MEDS: LEVOTHYROXINE 0.05 MG TAB (50 MCG) PO SCH (06:15)
[2016-06-23 07:06] LABS: BASO # 0.1 K/mm3 (0.0-0.2); BASO % 0.7 % (0.0-1.0); EOS # 0.8 K/mm3 (0.0-0.50); EOS % 4.8 % (0.0-3.0); LARGE UNSTAINED CELL # 0.7 K/mm3 (0.0-0.4); LYMPH # 2.1 K/mm3 (1.5-4.5); LYMPH % 8.6 % (24.0-44.0); MEAN CORPUSCULAR HEMOGLOBIN 27.1 pg (27.0-33.0); MEAN CORPUSCULAR HGB CONC 30.8 g/dl (32.0-36.5); MEAN CORPUSCULAR VOLUME 87.9 fl (80.0-96.0); MONO # 1.4 K/mm3 (0.0-0.8); MONO % 8.8 % (0.0-5.0); NEUTROPHILS # 11.9 K/mm3 (1.8-7.7); NEUTROPHILS % 73.1 % (36.0-66.0); PLATELET COUNT, AUTOMATED 297 k/mm3 (150-450); RED CELL DISTRIBUTION WIDTH 15.1 % (11.5-14.5); WHITE BLOOD COUNT 16.3 K/mm3 (4.0-10.0)
[2016-06-23 07:31] LABS: ALBUMIN 2.3 GM/DL (3.2-5.2); ALBUMIN/GLOBULIN RATIO 0.58 (1.00-1.93); ALKALINE PHOSPHATASE 65 U/L (45-117); ALT/SGPT 12 U/L (12-78); ANION GAP 9 MEQ/L (8-16); AST/SGOT 11 U/L (15-37); BILIRUBIN,TOTAL 0.8 MG/DL (0.2-1.0); BLOOD UREA NITROGEN 9 MG/DL (7-18); CALCIUM LEVEL 8.2 MG/DL (8.8-10.2); CARBON DIOXIDE LEVEL 25 MEQ/L (21-32); CHLORIDE LEVEL 107 MEQ/L (98-107); CREATININE FOR GFR 0.93 MG/DL (0.55-1.02); GLOMERULAR FILTRATION RATE > 60.0 (>39); GLUCOSE, FASTING 93 MG/DL (83-110); POTASSIUM SERUM 3.6 MEQ/L (3.5-5.1); SODIUM LEVEL 141 MEQ/L (136-145); TOTAL PROTEIN 6.3 GM/DL (6.4-8.2)
[2016-06-23] MEDS: ADVAIR DISKUS 500/50 INH PWD INH SCH ×2 (07:52→20:38)
[2016-06-23] MEDS: ASPIRIN 81 MG ENTERIC TAB PO SCH (08:56)
[2016-06-23] MEDS: CEPHALEXIN 500 MG CAP PO SCH ×4 (08:56→21:43)
[2016-06-23] MEDS: AMIODARONE 200 MG TAB (PACERONE) PO SCH (08:56)
[2016-06-23] MEDS: ENOXAPARIN 30 MG/0.3 ML SYR (J1650) SC SCH (08:56)
[2016-06-23] MEDS: FOLIC ACID 1 MG TAB PO SCH (08:56)
[2016-06-23 08:57] VITALS: BP 141/65
[2016-06-23] MEDS: BISOPROLOL FUM 2.5 MG PER 1/2TAB PO SCH (08:57)
[2016-06-23] MEDS: CLOPIDOGREL 75 MG TAB PO SCH (08:57)
[2016-06-23] MEDS: SERTRALINE HCL 50 MG TAB PO SCH (08:57)
[2016-06-23] MEDS: BACLOFEN 5MG PER 1/2 TABLET PO SCH ×2 (08:57→21:42)
[2016-06-23] MEDS: VITAMIN D 1,000 INTERNATIONAL UNITS TABLET PO SCH (08:57)
[2016-06-23] MEDS: NYSTATIN 100,000 UNITS/GM TOPICAL PWD 15 GM TOP SCH (08:58)
[2016-06-23] MEDS: CEPACOL LOZENGE PO PRN ×2 (09:07→23:30)
--- NOTE | 2016-06-23 11:16 | IPNPDOC ---
Subjective Date Seen The patient was seen on 06/23/16. Subjective Chief Complaint/HPI The patient is a 71-year-old female admitted with a reason for visit of Aspiration Pneumonia. General: Denies: Chills, Night Sweats Constitutional: Denies: Chills, Fever Eyes: Denies: Pain, Vision change ENT: Denies: Ear Pain, Head Aches Skin: Denies: Lesions, Rash Pulmonary: Denies: Cough, Dyspnea Cardiovascular: Denies: Chest Pain, Palpitations Gastrointestinal: Denies: Nausea, Vomiting Genitourinary: Denies: Dysuria, Frequency Hematologic: Denies: Bleeding Excessively, Bruising Objective Physical Examination General Exam: Positive: Alert, Cooperative, No Acute Distress ENT Exam: Positive: Atraumatic, Mucous membr. moist/pink Neck Exam: Negative: JVD Chest Exam: Positive: Diminished, Negative: Rales, Rhonchi Heart Exam: Positive: Normal S1, Normal S2, Rate Normal Abdomen Exam: Positive: Soft, Negative: Tenderness Extremity Exam: Positive: Normal pulses, Negative: Edema Assessment /Plan Plan/VTE VTE Prophylaxis Ordered?: Yes Plan Leukocytosis WBC upward trending from 10K-->16K s/p Treatment for Aspiration PNA with Vanco and Zosyn for 7 days Currently being treated for RUE Phlebitis from IV Site Infiltration with Keflex day 2 Blood Cultures since admission negative Patient has been afebrile, and hemodynamically stable here However, has been complaining of some diarrhea over the last 2 days-->We will order a GI panel to r/o possible C. Diff in view of recent abx administration Acute Hypoxic Respiratory failure - likely 2/[address] chest 06/17: course b/l subsegmental lower lobe discoid atelectasis, 7mm non- calcified, spiculated nodule at R upper lobe Patient currently requiring 3 L of oxygen via nasal cannula, at baseline requires 2 L at night only Blood cultures, Respiratory panel and Influenza negative s/p Vanco and Zosyn x 7 days Continue with incentive spirometry, albuterol, Advair We will down titrate the patient's oxygen requirement as tolerated Right upper extremity swelling likely secondary to IV infiltration On Keflex We will continue to monitor the infiltration site ?Dysphagia possibly 2/[address] chest: without any esophageal abnormalities noted Speech therapy eval noted; cont oral feeds with modified diet Surgery on board Large lung nodule noted on Chest CT - possible malignancy Will need a repeat CT scan of the chest in 3 months for further evaluation and monitoring s/p Hypernatremia likely 2/2 dehydration, resolved Acute superimposed on chronic kidney disease likely secondary to decreased by mouth intake, vomiting Serum Cr baseline of 1.2 Serum creatinine at baseline s/p IV fluid hydration Diastolic CHF, stable Appears euvolemic today We will restart spironolactone and torsemide CAD Continue ASA, Plavix, bisoprolol, statin COPD with chronic hypoxia requiring 2 L of oxygen at night, stable Continue nebs, Advair Continue supplemental oxygen A. fib Rate controlled with amiodarone On aspirin Hx of CVA with L sided hemiparesis Continue ASA and statin Dyslipidemia Continue statin Hypothyroidism Continue levothyroxine Anxiety / Depression Continue sertraline DVT prophylaxis Subcutaneous lovenox Disposition-we will continue to monitor the patient's respiratory status, and down titrate supplemental oxygen as tolerated. In addition, we will follow-up with GI panel to rule out possible underlying C. difficile in view of the patient's elevated white blood cell count. VS, I&O, 24H, [facility] Vital Signs/I&O Vital Signs Date Time Temp Pulse Resp B/P Pulse Ox O2 Delivery O2 Flow Rate FiO2 06/23/16 08:57 65 141/65 06/23/16 06:00 97.1 20 95 Nasal Cannula 3.0 I&O- Last 24 Hours up to 6 AM 06/23/16 06:00 Intake Total 890 ml Output Total 0 ml Balance 890 ml Laboratory Data 24H LABS Laboratory Tests 2 06/23/16 06:38: Blood Urea Nitrogen 9, Creatinine 0.93, Sodium Level 141, Potassium Level 3.6, Chloride Level 107, Carbon Dioxide Level 25, Calcium Level 8.2L, Aspartate Amino Transf (AST/SGOT) 11L, Alanine Aminotransferase (ALT/SGPT) 12, Alkaline Phosphatase 65, Total Bilirubin 0.8, Total Protein 6.3L, Albumin 2.3L, Albumin/ Globulin Ratio 0.58L, Anion Gap 9, White Blood Count 16.3H, Red Blood Count 4.37 , Hemoglobin 11.9L, Hematocrit 38.4, Mean Corpuscular Volume 87.9, Mean Corpuscular Hemoglobin 27.1, Mean Corpuscular Hemoglobin Concent 30.8L, Red Cell Distribution Width 15.1H, Platelet Count 297, Neutrophils (%) (Auto) 73.1H , Lymphocytes (%) (Auto) 8.6L, Monocytes (%) (Auto) 8.8H, Eosinophils (%) (Auto ) 4.8H, Basophils (%) (Auto) 0.7, Neutrophils # (Auto) 11.9H, Lymphocytes # ( Auto) 2.1, Monocytes # (Auto) 1.4H, Eosinophils # (Auto) 0.8H, Basophils # (Auto ) 0.1, Glomerular Filtration Rate > 60.0, Large Unclassified Cells # 0.7H, Large Unclassified Cells % 4.0 CBC/BMP Laboratory Tests 06/23/16 06:38 Calcium Level 8.2 L, Aspartate Amino Transf (AST/SGOT) 11 L, Alanine Aminotransferase (ALT/SGPT) 12, Alkaline Phosphatase 65, Total Bilirubin 0.8, Total Protein 6.3 L, Albumin 2.3 L, Red Blood Count 4.37, Mean Corpuscular Volume 87.9, Mean Corpuscular Hemoglobin 27.1, Mean Corpuscular Hemoglobin Concent 30.8 L, Red Cell Distribution Width 15.1 H, Neutrophils (%) (Auto) 73.1 H, Lymphocytes (%) (Auto) 8.6 L, Monocytes (%) (Auto) 8.8 H, Eosinophils (%) ( Auto) 4.8 H, Basophils (%) (Auto) 0.7, Neutrophils # (Auto) 11.9 H, Lymphocytes # (Auto) 2.1, Monocytes # (Auto) 1.4 H, Eosinophils # (Auto) 0.8 H, Basophils # (Auto) 0.1 Microbiology Microbiology 06/16/16 Blood Culture - Final, Complete NO GROWTH AFTER 5 DAYS 06/16/16 Influenza Virus Type A Antigen - Final, Complete 06/16/16 Influenza Virus Type B Antigen - Final, Complete 06/16/16 Respiratory Virus Panel (PCR) ([facility]) - Final, Complete AMADEO MONROY MD Jun 23, 2016 11:16
[2016-06-23 14:00] VITALS: BP 145/65
[2016-06-23] MEDS: SENNA 8.6 MG TAB (SENOKOT) PO SCH (21:42)
[2016-06-23] MEDS: ATORVASTATIN 20 MG TAB PO SCH (21:43)
[2016-06-23 22:00] VITALS: BP 118/58
[2016-06-24] MEDS: IPRATROPIUM 0.5MG/ALBUTEROL 2.5MG INH SOL UD 3ML (DUONEB)(J7620) NEB SCH ×2 (01:33→07:35)
[2016-06-24 06:00] VITALS: BP 124/60
[2016-06-24] MEDS: LEVOTHYROXINE 0.05 MG TAB (50 MCG) PO SCH (06:27)
[2016-06-24] MEDS: ADVAIR DISKUS 500/50 INH PWD INH SCH (07:35)
[2016-06-24] MEDS: BISOPROLOL FUM 2.5 MG PER 1/2TAB PO SCH (08:35)
[2016-06-24] MEDS: ASPIRIN 81 MG ENTERIC TAB PO SCH (08:36)
[2016-06-24] MEDS: BACLOFEN 5MG PER 1/2 TABLET PO SCH (08:36)
[2016-06-24] MEDS: VITAMIN D 1,000 INTERNATIONAL UNITS TABLET PO SCH (08:36)
[2016-06-24] MEDS: CEPHALEXIN 500 MG CAP PO SCH (08:36)
[2016-06-24] MEDS: AMIODARONE 200 MG TAB (PACERONE) PO SCH (08:36)
[2016-06-24] MEDS: ENOXAPARIN 30 MG/0.3 ML SYR (J1650) SC SCH (08:36)
[2016-06-24] MEDS: FOLIC ACID 1 MG TAB PO SCH (08:36)
[2016-06-24] MEDS: SERTRALINE HCL 50 MG TAB PO SCH (08:36)
[2016-06-24] MEDS: CLOPIDOGREL 75 MG TAB PO SCH (08:36)
[2016-06-24] MEDS: NYSTATIN 100,000 UNITS/GM TOPICAL PWD 15 GM TOP SCH (08:37)
[2016-06-24 09:16] LABS: MEAN CORPUSCULAR HEMOGLOBIN 26.7 pg (27.0-33.0); MEAN CORPUSCULAR HGB CONC 30.9 g/dl (32.0-36.5); MEAN CORPUSCULAR VOLUME 86.3 fl (80.0-96.0); RED CELL DISTRIBUTION WIDTH 14.9 % (11.5-14.5); WHITE BLOOD COUNT 13.4 K/mm3 (4.0-10.0)
[2016-06-24 09:19] LABS: CALCIUM LEVEL 7.6 MG/DL (8.8-10.2); CREATININE FOR GFR 1.02 MG/DL (0.55-1.02); GLOMERULAR FILTRATION RATE 56.9 (>39); POTASSIUM SERUM 3.6 MEQ/L (3.5-5.1)
[2016-06-24] MEDS ORDERED: CEPH500C PO (09:57)
--- NOTE | 2016-06-24 14:50 | DS.PDOC ---
Discharge Summary General Date of Admission Jun 16, 2016 at 15:50 Date of Discharge Jun 24, 2016 at 11:59 Specialist/Consultants Involve Dr. Denney of Surgery Discharge Summary PROCEDURES PERFORMED DURING STAY: None. ADMITTING DIAGNOSES: 1. . Aspiration pneumonia 2. . Lung nodule noted on CT 3. . DISCHARGE DIAGNOSES: 1. . Aspiration pneumonia 2. . Superficial phlebitis of the right upper extremity 3. . COMPLICATIONS/CHIEF COMPLAINT: Aspiration Pneumonia. HISTORY OF PRESENT ILLNESS: . 71 Y/O F with a past medical history significant for CVA/left hemiparesis, COPD on 3L of Oxygen at night, and CHF from the [facility] was brought in by EMS was called this AM after she had an episode of emesis and was diagnosed with aspiration pneumonia. She was brought to the hospital because she was noted to be hypoxic with a pulse ox of 82% on 3 L of oxygen via nasal cannula. A CT scan of the chest revealed coarse bilateral subsegmental lower lobe discoid atelectasis and a spiculated nodule at the right upper lobe. The patient was started on empiric antibiotic therapy with vancomycin and Zosyn. The patient was admitted to the hospital service for further evaluation and management of the patient's pneumonia. During the patient's hospital stay here she completed a 7 day trial of vancomycin and Zosyn. Blood cultures, respiratory panel, and influenza studies were negative. The patient's respiratory status significantly improved, and was back to its baseline according to the patient. She did still require 3 L of oxygen via nasal cannula while reclined in bed, which she states is her baseline. Also of note, the patient was evaluated by speech therapy given her recent episode of aspiration pneumonia. Her diet was modified as per speech therapy's recommendations. Dr. Denney also evaluated the patient for a possible PEG tube, however he recommended the patient continue with modified diet at this time. In addition, the patient was noted to have a slight elevation in white blood cell count to 16K towards the end of her hospitalization, which was attributed to the patient's superficial phlebitis on the right upper extremity secondary to IV site infiltration. The patient was started on Keflex and IV was removed. Since administration of the antibiotic, the patient's right upper extremity appears much improved, and her white blood cell count has trended downward. At this time, the patient states that she feels back to her baseline self, and is eager to return to [facility]. We will discharge the patient with the recommendation to repeat a CT scan in 3-4 months for further follow-up of the lung nodule noted on CT here. DISCHARGE MEDICATIONS: Please see below. ALLERGIES: Please see below. PHYSICAL EXAMINATION ON DISCHARGE: VITAL SIGNS: Please see below. General Exam: Positive: Alert, Cooperative, No Acute Distress ENT Exam: Positive: Atraumatic, Mucous membr. moist/pink Neck Exam: Negative: JVD Chest Exam: Positive: Diminished, Negative: Rales, Rhonchi Heart Exam: Positive: Normal S1, Normal S2, Rate Normal Abdomen Exam: Positive: Soft, Negative: Tenderness Extremity Exam: Positive: Normal pulses, Negative: Edema LABORATORY DATA: Please see below. IMAGING: Chest CT without contrast: History: Evaluate for pneumonia. Possible esophageal stricture. Comparison chest CT study is from 07/03/2015. Comparison chest x-ray from the previous day. The patient was apparently unable to bring her arms out of the field of view over her head. CT findings: There are moderate bilateral lower lobe atelectatic changes in the subsegmental pattern which is a little more prominent than on the 07/03/2015 prior study. No definite new infiltrate is seen. Today's exam demonstrates a 7 mm soft tissue nodule in a rosalie-bronchovascular distribution in the right upper lobe on image #34 of 112 of series 201 on today's study. This is not visible on the prior CT study from June 2015 or on the prior CT study of 10/15/2013. I cannot exclude a small neoplastic nodule. Short interval follow-up is recommended 3-4 months. No hilar or mediastinal mass or adenopathy is seen. Vascular calcification is observed. Cholelithiasis is seen and there appear to be stones in the collecting system of the left kidney. There are calcifications in the pancreatic head consistent with previous episodes of pancreatitis. Diverticulosis changes are seen in the right and left colon at the bottom of the imaging field of view. Impression: Coarse bilateral subsegmental lower lobe discoid atelectasis. 7 mm noncalcified somewhat spiculated appearing rosalie-bronchovascular nodule in the right upper lobe. Neoplastic nodule suspected. Three 4-month followup chest CT recommended. The esophagus is unremarkable. Cholelithiasis and intrarenal calculi left kidney also noted. PROGNOSIS: Medically stable at this time ACTIVITY: As tolerated. DIET: . 2 g low sodium diet, with diet modifications as recommended by speech therapy DISCHARGE PLAN: DISPOSITION: [facility]. DISCHARGE INSTRUCTIONS: 1. . Follow-up with primary care physician within one week 2. . Follow-up with repeat CT in 3-4 months, to further evaluate lung nodule noted on CT on admission 3. . DISCHARGE CONDITION: Stable. TIME SPENT ON DISCHARGE: Greater than 30 minutes. Vital Signs/I&Os Vital Signs Date Time Temp Pulse Resp B/P Pulse Ox O2 Delivery O2 Flow Rate FiO2 06/24/16 09:00 Nasal Cannula 2.0 06/24/16 08:35 56 06/24/16 06:00 97.4 18 124/60 94 I&O- Last 24 Hours up to 6 AM 06/24/16 06:00 Intake Total 1200 ml Output Total 0 ml Balance 1200 ml Laboratory Data Labs 24H Laboratory Tests 2 06/24/16 08:47: Anion Gap 9, Blood Urea Nitrogen 9, Creatinine 1.02, Sodium Level 140, Potassium Level 3.6, Chloride Level 104, Carbon Dioxide Level 27, Calcium Level 7.6L, Glomerular Filtration Rate 56.9 CBC/BMP Laboratory Tests 06/24/16 08:47 Calcium Level 7.6 L, Red Blood Count 4.27, Mean Corpuscular Volume 86.3, Mean Corpuscular Hemoglobin 26.7 L, Mean Corpuscular Hemoglobin Concent 30.9 L, Red Cell Distribution Width 14.9 H Microbiology Microbiology 06/16/16 Blood Culture - Final, Complete NO GROWTH AFTER 5 DAYS 06/23/16 Gastrointestinal Tract Panel (PCR) - Final, Complete 06/16/16 Influenza Virus Type A Antigen - Final, Complete 06/16/16 Influenza Virus Type B Antigen - Final, Complete 06/16/16 Respiratory Virus Panel (PCR) ([facility]) - Final, Complete Discharge Medications Scheduled Albuterol Sulfate (Albuterol Sulfate) 2.5 Mg/3 Ml Nebu 2.5 MG INH ASDIRECTED ( Reported) EVERY 3 HOURS:0000,0300,0600,0900,1200,1500,1800,2100 Amiodarone HCl (Amiodarone HCl) 200 Mg Tab 200 MG PO DAILY (Reported) Aspirin (Aspir-81) 81 Mg Tab 81 MG PO DAILY (Reported) Atorvastatin Calcium (Atorvastatin Calcium) 40 Mg Tab 40 MG PO QHS (Reported) Baclofen (Baclofen) 10 Mg Tab 5 MG PO BID (Reported) Bisoprolol Fumarate (Bisoprolol Fumarate) 5 Mg Tab 2.5 MG PO DAILY (Reported) Cephalexin Monohydrate (Cephalexin) 500 Mg Cap 500 MG PO QID Clopidogrel Bisulfate (Plavix) 75 Mg Tab 75 MG PO DAILY (Reported) Folic Acid (Folic Acid) 1 Mg Tab 1 MG PO DAILY (Reported) Levothyroxine Sodium (Synthroid) 50 Mcg Tab 50 MCG PO QAM (Reported) Potassium Chloride (K-Tab) 20 Meq Tab 20 MEQ PO DAILY (Reported) Salmeterol/Fluticasone (Advair Diskus 500-50 Mcg/Dose) 28 Puff/Inhaler Aerp 1 PUFF INH BID (Reported) Sertraline Hcl (Zoloft) 50 Mg Tab 50 MG PO DAILY (Reported) Sodium Chloride (Sodium Chloride 0.45%) 0.45 % Inj 80 ML IV Q1H (Reported) 80CC HR CONTINUOUS X 3 LITERS Spironolactone (Aldactone) 25 Mg Tab 12.5 MG PO DAILY (Reported) Torsemide (Demadex) 20 Mg Tab 60 MG PO BID (Reported) Vitamin D (Vitamin D3) 1,000 Units Tab 1,000 UNITS PO DAILY (Reported) Scheduled PRN Acetaminophen (Feverall Adults) 650 Mg Sup 650 MG ND Q4H PRN PRN PAIN / FEVER ( Reported) Albuterol Sulfate (Ventolin Hfa) 200 Puff/8 Gm Aers 2 PUFF INH Q4H PRN PRN SHORTNESS OF BREATH (Reported) Milk Of Magnesia (Milk of Magnesia) 1,200 Mg/15 Ml Tamara 30 ML PO DAILY PRN PRN CONSTIPATION (Reported) Senna (Senna Lax) 8.6 Mg Tab 1 TAB PO DAILY PRN PRN CONSTIPATION (Reported) Allergies Coded Allergies: [place] (Verified Allergy, Unknown, 07/22/12) AMADEO MONROY MD Jun 24, 2016 14:50
== END 2016-06-24 11:59 | DRG 177 ==
LOC: EDBD 10:14 → M ED 12:28 → M ED INP 15:50 → M MSPAV 17:05
PROVIDERS: ADMIT Internal Medicine; ATTEND Internal Medicine
DX: J69.0 Pneumonitis due to inhalation of food and vomit (principal); J96.01 Acute respiratory failure with hypoxia; I69.354 Hemiplegia and hemiparesis following cerebral infarction affecting left non-dominant side; I50.32 Chronic diastolic (congestive) heart failure; L97.229 Non-pressure chronic ulcer of left calf with unspecified severity; J98.11 Atelectasis; E87.0 Hyperosmolality and hypernatremia; R11.2 Nausea with vomiting, unspecified; J44.9 Chronic obstructive pulmonary disease, unspecified; Z66 Do not resuscitate; I27.2 Other secondary pulmonary hypertension; I25.10 Atherosclerotic heart disease of native coronary artery without angina pectoris; K21.9 Gastro-esophageal reflux disease without esophagitis; E03.9 Hypothyroidism, unspecified; I48.91 Unspecified atrial fibrillation; I73.9 Peripheral vascular disease, unspecified; E66.9 Obesity, unspecified; R91.8 Other nonspecific abnormal finding of lung field; F32.9 Major depressive disorder, single episode, unspecified; F41.9 Anxiety disorder, unspecified; N18.3 Chronic kidney disease, stage 3 (moderate); Z87.890 Personal history of sex reassignment; E83.42 Hypomagnesemia; E78.5 Hyperlipidemia, unspecified; Z79.82 Long term (current) use of aspirin; Z79.899 Other long term (current) drug therapy; Z88.8 Allergy status to other drugs, medicaments and biological substances; Z91.11 Patient's noncompliance with dietary regimen; Z68.38 Body mass index [BMI] 38.0-38.9, adult

== ENCOUNTER → 2016-06-25 | Outpatient (REF) | payer MEDICAID, MEDICARE ==
[~2016-06-25] MED LIST changes: +1/2 NS; +ACET500T37 PO; +ALBU83IN INH; +ALDA25TA2 PO; +AMIO400T PO; +CEFT1INJ3 IV; +CEPH500C PO; +DEMA20TA6 PO; +FEVE650S3 PR; +HYDR-3713 PO; +INCR1INH INH; +K-TA1TAB PO; +LORT5TAB PO; +MULT1TAB10 PO; +PRED10TA PO; +ROCE1INJ4 IV; +TYLE325T5 PO; +VITA200015 PO; +ZOLO50TA PO; +[UNRECOGNIZED DRUG - CODE] IV
[2016-06-25 12:04] LABS: MEAN CORPUSCULAR HGB CONC 31.1 g/dl (32.0-36.5); MEAN CORPUSCULAR VOLUME 86.8 fl (80.0-96.0); RED CELL DISTRIBUTION WIDTH 14.8 % (11.5-14.5)
[2016-06-25 12:16] LABS: CALCIUM LEVEL 7.8 MG/DL (8.8-10.2); CREATININE FOR GFR 1.02 MG/DL (0.55-1.02); GLOMERULAR FILTRATION RATE 56.9 (>39); POTASSIUM SERUM 3.9 MEQ/L (3.5-5.1)
== END ==
PROVIDERS: ATTEND Internal Medicine
DX: I10 Essential (primary) hypertension (principal); I50.9 Heart failure, unspecified; D72.829 Elevated white blood cell count, unspecified

== ENCOUNTER → 2016-06-29 | Outpatient (REF) ==
[~2016-06-29] MED LIST changes: -AMIO400T PO; -HYDR-3713 PO; -INCR1INH INH; -LORT5TAB PO; -MULT1TAB10 PO; -PRED10TA PO; -TYLE325T5 PO; -VITA200015 PO
[2016-06-29 11:10] LABS: MEAN CORPUSCULAR HEMOGLOBIN 27.2 pg (27.0-33.0); MEAN CORPUSCULAR HGB CONC 31.2 g/dl (32.0-36.5); MEAN CORPUSCULAR VOLUME 87.4 fl (80.0-96.0); WHITE BLOOD COUNT 12.8 K/mm3 (4.0-10.0)
[2016-06-29 11:45] LABS: CALCIUM LEVEL 8.3 MG/DL (8.8-10.2); CREATININE FOR GFR 1.49 MG/DL (0.55-1.02); GLOMERULAR FILTRATION RATE 36.7 (>39); POTASSIUM SERUM 4.7 MEQ/L (3.5-5.1)
== END ==
PROVIDERS: ATTEND Internal Medicine
DX: I10 Essential (primary) hypertension (principal); I50.9 Heart failure, unspecified; E55.9 Vitamin D deficiency, unspecified

== ENCOUNTER → 2016-07-06 | Outpatient (REF) | payer MEDICARE, MEDICAID ==
[2016-07-06 10:13] LABS: MEAN CORPUSCULAR HGB CONC 32.2 g/dl (32.0-36.5); MEAN CORPUSCULAR VOLUME 86.9 fl (80.0-96.0); RED CELL DISTRIBUTION WIDTH 15.1 % (11.5-14.5); WHITE BLOOD COUNT 8.4 K/mm3 (4.0-10.0)
[2016-07-06 10:32] LABS: CALCIUM LEVEL 8.4 MG/DL (8.8-10.2); CREATININE FOR GFR 1.55 MG/DL (0.55-1.02); GLOMERULAR FILTRATION RATE 35.1 (>39); POTASSIUM SERUM 4.4 MEQ/L (3.5-5.1)
== END ==
PROVIDERS: ATTEND Internal Medicine
DX: I50.9 Heart failure, unspecified (principal); I10 Essential (primary) hypertension

== ENCOUNTER 2016-07-11 07:55 | Inpatient (IN) | payer MEDICARE, MEDICAID ==
[~2016-07-11] VITALS: Ht 165.1 cm; Wt 115.2 kg
--- NOTE | 2016-07-11 09:11 | REP ---
Clinical: Cough. Dyspnea. . Comparison: 06/16/2016 . Findings: The mediastinum and cardiac silhouette are stable and within normal limits for portable technique. The lung joyner are clear without acute consolidation, effusion, or pneumothorax. Skeletal structures are intact. Impression: Limited portable examination. No focal consolidation. Signed by Erasmo Patrick MD 07/11/2016 09:02 A
[2016-07-11] MEDS ORDERED: AMIO400T PO (09:15)
[2016-07-11] MEDS ORDERED: INCR1INH INH (09:15)
[2016-07-11] MEDS ORDERED: LORT5TAB PO (09:15)
[2016-07-11] MEDS ORDERED: MULT1TAB10 PO (09:15)
[2016-07-11 09:21] LABS: BASO # 0.1 K/mm3 (0.0-0.2); BASO % 0.4 % (0.0-1.0); EOS # 0.1 K/mm3 (0.0-0.50); EOS % 0.6 % (0.0-3.0); LARGE UNSTAINED CELL # 0.2 K/mm3 (0.0-0.4); LYMPH # 0.7 K/mm3 (1.5-4.5); MEAN CORPUSCULAR HGB CONC 31.3 g/dl (32.0-36.5); MEAN CORPUSCULAR VOLUME 86.5 fl (80.0-96.0); MONO # 0.6 K/mm3 (0.0-0.8); MONO % 3.5 % (0.0-5.0); NEUTROPHILS # 16.7 K/mm3 (1.8-7.7); NEUTROPHILS % 90.6 % (36.0-66.0); PLATELET COUNT, AUTOMATED 311 k/mm3 (150-450); RED CELL DISTRIBUTION WIDTH 15.1 % (11.5-14.5); WHITE BLOOD COUNT 18.4 K/mm3 (4.0-10.0)
[2016-07-11 09:41] LABS: CALCIUM LEVEL 8.5 MG/DL (8.8-10.2); CREATININE FOR GFR 1.41 MG/DL (0.55-1.02); GLOMERULAR FILTRATION RATE 39.1 (>39)
[2016-07-11] MEDS ORDERED: ISOVUE-370 76% 100ML VIAL (Q9967) As Ordered ONE (10:14)
--- NOTE | 2016-07-11 10:49 | REP ---
Clinical: Shortness of breath. Comparison 06/17/2016 . Technique: Axial contrast enhanced images from the thoracic inlet to the upper abdomen using 100 ml Isovue 370 intravenous contrast material with multiplanar re-formations. Findings: Satisfactory enhancement of the pulmonary vasculature is achieved and no filling defects are identified to suggest pulmonary embolus. Further evaluation of the mediastinum demonstrates atherosclerotic changes to the coronary arteries and thoracic aorta with mild cardiomegaly. No aortic aneurysm or dissection. Lung joyner demonstrate small to moderate left lower lobe consolidation with air bronchograms as well as bibasilar and lingular atelectasis. Subtle early infiltrates involving the right upper lobe cannot be excluded as well. No pleural effusion. No pneumothorax. No significant adenopathy. Impression: No evidence for pulmonary embolus. Small to moderate left lower lobe consolidation with air bronchograms as well as bibasilar atelectasis and possible early right upper lobe infiltrate. Follow-up to resolution recommended. Signed by Erasmo Patrick MD 07/11/2016 10:41 A
[2016-07-11] MEDS ORDERED: AMIO20TA PO (13:39)
[2016-07-11] MEDS ORDERED: TYLE325T5 PO (13:39)
[2016-07-11] MEDS ORDERED: VITA200015 PO (13:39)
[2016-07-11] MEDS ORDERED: HYDR-3713 PO (13:39)
[2016-07-11] MEDS ORDERED: PIPERACILLIN/TAZOBACTAM SOD 3.375 GM in D5W MINI-BAG PLUS 50 ML IV ONE (14:00)
[2016-07-11] MEDS ORDERED: MOM 30ML SUSPENSION UDC PO PRN (14:15)
[2016-07-11] MEDS ORDERED: ONDANSETRON 4MG/2ML VIAL (J2405) IV PRN (14:15)
[2016-07-11] MEDS ORDERED: ACETAMINOPHEN 325 MG TAB PO PRN (14:15)
[2016-07-11] MEDS ORDERED: IPRATROPIUM 0.5MG/ALBUTEROL 2.5MG INH SOL UD 3ML (DUONEB)(J7620) NEB PRN (14:15)
[2016-07-11] MEDS ORDERED: SENNA 8.6 MG TAB (SENOKOT) PO PRN (14:15)
--- NOTE | 2016-07-11 14:39 | HPEPDOC ---
General Date of Admission 07/11/16 Chief Complaint The patient is a 71-year-old female admitted with a reason for visit of Sob; ? Chf. History of Present Illness 71 Y/O F with a past medical history significant for hypothyroidism, depression , chronic kidney disease stage IIIB, CAD, atrial fibrillation, dyslipidemia, CVA /left hemiparesis, COPD on 3L of Oxygen at night, and diastolic CHF from the [facility] was brought in as she was noted to be hypoxic with a pulse ox in the low 80s on 3 L of oxygen via nasal cannula this morning. The patient states that she woke up this morning coughing, and increasingly short of breath. She notes that her shortness of breath worsened with any movement, including while turning side to side in the bed. She denies any fevers, chills, chest pain, palpitations, abdominal pain, or any nausea/vomiting/diarrhea. Of note, the patient was recently admitted from 06/16-06/24 for HCAP at which time she received therapy with vancomycin and Zosyn. The patient denies any increase in lower extremity edema, PND, or orthopnea. In the ER, a CTA of the chest revealed no evidence of pulmonary embolus. A small to moderate size left lower lobe consolidation with air bronchograms, bibasilar atelectasis, and subtle early infiltrates involving the right upper lobe forming which were not previously present on CT from 06/17. The patient will be admitted under the service of Dr. Fowler for further evaluation and management. Home Medications Scheduled (Incruse Ellipta) 62.5 Mcg/Inh Inh 62.5 MCG INH QHS (Reported) Acetaminophen/Hydrocodone (Hydrocodone/Acetaminophen 5-325 mg) 1 Tab Tab 0.5 TAB PO QID (Reported) Amiodarone HCl (Amiodarone HCl) 200 Mg Tab 200 MG PO DAILY (Reported) Aspirin (Aspir-81) 81 Mg Tab 81 MG PO DAILY (Reported) Atorvastatin Calcium (Atorvastatin Calcium) 40 Mg Tab 40 MG PO QHS (Reported) Baclofen (Baclofen) 10 Mg Tab 5 MG PO BID (Reported) Bisoprolol Fumarate (Bisoprolol Fumarate) 5 Mg Tab 2.5 MG PO DAILY (Reported) Cholecalciferol (Vitamin D) 2,000 Unit Tab 2,000 UNIT PO DAILY (Reported) Clopidogrel Bisulfate (Plavix) 75 Mg Tab 75 MG PO DAILY (Reported) Folic Acid (Folic Acid) 1 Mg Tab 1 MG PO DAILY (Reported) Levothyroxine Sodium (Synthroid) 50 Mcg Tab 50 MCG PO DAILY (Reported) Multivitamins (Multivitamin Adults) 1 Tab Tab 1 TAB PO DAILY (Reported) Potassium Chloride (K-Tab) 20 Meq Tab 20 MEQ PO DAILY (Reported) Salmeterol/Fluticasone (Advair Diskus 500-50 Mcg/Dose) 28 Puff/Inhaler Aerp 1 PUFF INH BID (Reported) Sertraline Hcl (Zoloft) 50 Mg Tab 50 MG PO DAILY (Reported) Spironolactone (Aldactone) 25 Mg Tab 12.5 MG PO DAILY (Reported) Torsemide (Demadex) 20 Mg Tab 60 MG PO BID (Reported) Scheduled PRN Acetaminophen (Tylenol) 325 Mg Tab 325 MG PO Q4H PRN PRN PAIN / FEVER (Reported ) Albuterol Sulfate (Albuterol Sulfate) 2.5 Mg/3 Ml Nebu 2.5 MG INH Q3HP PRN PRN SHORTNESS OF BREATH (Reported) Milk Of Magnesia (Milk of Magnesia) 1,200 Mg/15 Ml Tamara 30 ML PO DAILY PRN PRN CONSTIPATION (Reported) Senna (Senna Lax) 8.6 Mg Tab 1 TAB PO DAILY PRN PRN CONSTIPATION (Reported) Allergies Coded Allergies: [place] (Verified Allergy, Unknown, 07/22/12) [place] (Verified Allergy, Unknown, N/V, 07/11/16) Past Medical History Medical History As noted in HPI. Surgical History Cataract extraction tonsillectomy Rt hip repair pericardiocentesis Family History Significant Family History: No pertinent family hx Social History Alcohol: Denies Drugs: denies Resides in: resident of [facility] Marital Status: Kids: 2, 1 Employment: retired teacher Tobacco use: former smoker, quit 2009 ETOH: none currently. 40 years, 2-4 drinks per day. Illicit Drugs: Denies Recent travel: denies Advanced directives: Pt has a DNR. Review of Symptoms Other systems 10 point review of systems negative unless otherwise specified in HPI. Physical Examination General Exam: Positive: Alert, Cooperative, No Acute Distress, Other (morbidly obese) ENT Exam: Positive: Atraumatic, Mucous membr. moist/pink Neck Exam: Negative: JVD Chest Exam: Positive: Diminished, Rhonchi, Negative: Rales Heart Exam: Positive: Normal S1, Normal S2, Rate Normal Telemetry: Positive: Sinus Abdomen Exam: Positive: Soft, Negative: Tenderness Extremity Exam: Positive: Other (2 x 2 stage I decubitus ulcer noted in the left calf area. Mild tenderness to palpation, with some surrounding erythema, no induration noted.) Vital Signs As noted in the HPI. Laboratory Data Labs 24H Laboratory Tests 2 07/11/16 09:03: Troponin I < 0.02 07/11/16 09:09: Anion Gap 8, B-Type Natriuretic Peptide 299H, White Blood Count 18.4H, Red Blood Count 4.55, Hemoglobin 12.3, Hematocrit 39.4, Mean Corpuscular Volume 86.5 , Mean Corpuscular Hemoglobin 27.0, Mean Corpuscular Hemoglobin Concent 31.3L, Red Cell Distribution Width 15.1H, Platelet Count 311, Neutrophils (%) (Auto) 90.6H, Lymphocytes (%) (Auto) 4.0L, Monocytes (%) (Auto) 3.5, Eosinophils (%) ( Auto) 0.6, Basophils (%) (Auto) 0.4, Neutrophils # (Auto) 16.7H, Lymphocytes # ( Auto) 0.7L, Monocytes # (Auto) 0.6, Eosinophils # (Auto) 0.1, Basophils # (Auto ) 0.1, Blood Urea Nitrogen 21H, Creatinine 1.41H, Sodium Level 141, Potassium Level 4.0, Chloride Level 100, Carbon Dioxide Level 33H, Calcium Level 8.5L, Glomerular Filtration Rate 39.1, Lactic Acid Level 1.6, Large Unclassified Cells # 0.2, Large Unclassified Cells % 1.0 CBC/BMP Laboratory Tests 07/11/16 09:09 Calcium Level 8.5 L, Red Blood Count 4.55, Mean Corpuscular Volume 86.5, Mean Corpuscular Hemoglobin 27.0, Mean Corpuscular Hemoglobin Concent 31.3 L, Red Cell Distribution Width 15.1 H, Neutrophils (%) (Auto) 90.6 H, Lymphocytes (%) ( Auto) 4.0 L, Monocytes (%) (Auto) 3.5, Eosinophils (%) (Auto) 0.6, Basophils (% ) (Auto) 0.4, Neutrophils # (Auto) 16.7 H, Lymphocytes # (Auto) 0.7 L, Monocytes # (Auto) 0.6, Eosinophils # (Auto) 0.1, Basophils # (Auto) 0.1 Plan / VTE VTE Prophylaxis Ordered?: Yes Plan Plan Acute Hypoxic Respiratory failure - likely 2/2 HCAP, Aspiration pneumonia CTA chest notable for left lower lobe consolidation with air bronchograms as well as bibasilar atelectasis and possible early right upper lobe infiltrate Patient currently requiring 3 L of oxygen via nasal cannula, at baseline requires 2-3 L usually at night Blood cultures, Respiratory panel and Influenza ordered Will empirically cover with Vanco and Zosyn Continue with incentive spirometry, Acapella, albuterol, Advair We will down titrate the patient's oxygen requirement as tolerated Recurrent Aspiration PNA Patient did have a surgical consultation regarding her last admission here, and a modified diet was recommended Large lung nodule noted on Chest CT - possible malignancy I have explained these findings to the patient once again, and reiterated that she will need a repeat CT scan of the chest in 3 months for further evaluation and monitoring Chronic kidney disease stage IIIB Serum creatinine at baseline Diastolic CHF, stable CTA of the chest with no pleural effusions noted Appears euvolemic on clinical exam BNP appears to be at baseline Continue spironolactone and torsemide CAD Continue ASA, Plavix, bisoprolol, statin COPD with chronic hypoxia requiring 2-3 L of oxygen at night, stable Continue nebs, Advair Continue supplemental oxygen A. fib Rate controlled with amiodarone On aspirin, Plavix Hx of CVA with L sided hemiparesis Continue ASA and statin Dyslipidemia Continue statin Hypothyroidism Continue levothyroxine Anxiety / Depression Continue sertraline DVT prophylaxis Subcutaneous heparin The patient will be admitted under the service of Dr. Fowler, who will begin to follow the patient on 07/12. AMADEO MONROY MD Jul 11, 2016 14:39
[2016-07-11] MEDS ORDERED: FUROSEMIDE 40 MG/4 ML VIAL (J1940) As Ordered ONE (15:57)
[2016-07-11] MEDS ORDERED: FUROSEMIDE 40 MG/4 ML VIAL (J1940) IV ONE (16:00)
--- NOTE | 2016-07-11 16:25 | PHACANCOPD ---
PHARMACY VANCOMYCIN DOSING Pt Demographics Demographics Patient Age:71 , Weight: , Gender: female Adjusted Body Weight Date: 07/11/16, Adjusted Body Weight: [76] Kg Events Past 24 Hours Events Past 24 Hours: YES: Diuretic Therapy (torsemide 60mg BID), Elevation in WBC, Fever, NO: Change in CrCl, Dialysis, Other, Pending Diagnostics, Pending Procedures Vancomycin Vancomycin indication: HCAP Vancomycin Target Ranges: 15-20 mcg/ml Vancomycin Load Y/N: Yes Load Dose Date Time Vancomycin Load Dose: 1000mg IV q12h x2 doses Vancomycin Dose Date: 07/13/16. Current Vancomycin Dose: [750mg IV q24h @08] Intermittent Dosing?: No Labs Labs Item Value Date Time White Blood Count 18.4 K/mm3 H 07/11/16 0909 Creatinine 1.41 MG/DL H 07/11/16 0909 Vital Signs Label Value Date Time Patient Temperature 99.3 degrees F 07/11/16 0840 Temperature Source Temporal 07/11/16 0840 Micro Microbiology 07/11/16 Blood Culture, Received Pending 07/11/16 Blood Culture, Received Pending 07/11/16 Respiratory Virus Panel (PCR) (COREY) - Final, Complete 07/11/16 Influenza Virus Type A Antigen - Final, Complete 07/11/16 Influenza Virus Type B Antigen - Final, Complete Creatinine Clearance Date:07/11/16. Creatinine Clearance: [44 ml/min using adjusted BW]. Assessment and Plan Maintaining Current Dose?: Yes Reason for dose change: No Dose Change Pharmacist Note Pharmacist Note Date: 07/11/16. Pharmacist note: pt is being treated for HCAP/aspiration pneumonia, she is currently an [facility] resident. pt was also previously on vancomycin here earlier this month. Her SCr is about at baseline, she has also been continued on her home dose of torsemide 60mg BID and received a dose of lasix in the ER. I will start with a gentle load of 1g IV q12h x2 doses, then start 750mg q24h. We will monitor renal function and order a trough as necessary. Rodolfo Goncalves Pharm.D. Jul 11, 2016 16:25
[2016-07-11 17:45] VITALS: BP 130/62
[2016-07-11] MEDS: TORSEMIDE 20 MG TAB PO SCH (18:15)
[2016-07-11] MEDS: NORCO, ANEXSIA 5/325MG TABLET (HYDROcodone/ACETAMINOPHEN) PO SCH ×2 (18:16→21:17)
[2016-07-11] MEDS: VANCOMYCIN HCL 1,000 MG, VIAL MATE ADAPTER 1 EACH in D5W 250 ML IV SCH (18:16)
[2016-07-11 19:46] VITALS: BP 118/55
[2016-07-11 20:00] VITALS: PULSE 61
[2016-07-11] MEDS: IPRATROPIUM 0.5MG/ALBUTEROL 2.5MG INH SOL UD 3ML (DUONEB)(J7620) NEB SCH (20:00)
[2016-07-11] MEDS: ADVAIR DISKUS 500/50 INH PWD INH SCH (20:08)
[2016-07-11 20:11] VITALS: O2SAT 97
[2016-07-11] MEDS: BACLOFEN 5MG PER 1/2 TABLET PO SCH (21:16)
[2016-07-11] MEDS: ATORVASTATIN 20 MG TAB PO SCH (21:16)
[2016-07-11] MEDS: PIPERACILLIN/TAZOBACTAM SOD 3.375 GM in D5W MINI-BAG PLUS 50 ML IV SCH (21:17)
[2016-07-11] MEDS: HEPARIN SOD (PORCINE) 5000 UNITS/ML VIAL SC SCH (21:17)
[2016-07-11] MEDS: NYSTATIN 100,000 UNITS/GM TOPICAL PWD 15 GM TOP SCH (23:18)
[2016-07-12] VITALS (9 sets, daily range): BP systolic 117–146; BP diastolic 53–66; PULSE 56–63; O2SAT 93
[2016-07-12] MEDS: IPRATROPIUM 0.5MG/ALBUTEROL 2.5MG INH SOL UD 3ML (DUONEB)(J7620) NEB SCH ×4 (01:44→20:00)
[2016-07-12] MEDS: PIPERACILLIN/TAZOBACTAM SOD 3.375 GM in D5W MINI-BAG PLUS 50 ML IV SCH ×4 (03:19→21:26)
[2016-07-12] MEDS: VANCOMYCIN HCL 1,000 MG, VIAL MATE ADAPTER 1 EACH in D5W 250 ML IV SCH (03:19)
[2016-07-12] MEDS: LEVOTHYROXINE 0.05 MG TAB (50 MCG) PO SCH (05:37)
[2016-07-12] MEDS: HEPARIN SOD (PORCINE) 5000 UNITS/ML VIAL SC SCH ×3 (05:37→21:29)
[2016-07-12 06:21] LABS: MEAN CORPUSCULAR HEMOGLOBIN 27.2 pg (27.0-33.0); MEAN CORPUSCULAR HGB CONC 31.5 g/dl (32.0-36.5); MEAN CORPUSCULAR VOLUME 86.3 fl (80.0-96.0); RED CELL DISTRIBUTION WIDTH 15.3 % (11.5-14.5)
[2016-07-12 06:42] LABS: BLOOD UREA NITROGEN 25 MG/DL (7-18); CALCIUM LEVEL 8.4 MG/DL (8.8-10.2); CREATININE FOR GFR 1.58 MG/DL (0.55-1.02); GLUCOSE, FASTING 133 MG/DL (83-110); MAGNESIUM LEVEL 2.3 MG/DL (1.8-2.4)
[2016-07-12] MEDS: ADVAIR DISKUS 500/50 INH PWD INH SCH ×2 (07:13→20:05)
[2016-07-12 07:30] LABS: ANION GAP 9 MEQ/L (8-16); CARBON DIOXIDE LEVEL 29 MEQ/L (21-32); CHLORIDE LEVEL 97 MEQ/L (98-107); SODIUM LEVEL 135 MEQ/L (136-145)
--- NOTE | 2016-07-12 09:23 | ECGEPIP ---
Stationary ECG Study [facility] - ED Test Date: 2016-07-11 Pat Name: KRISTEN BURRELL Department: Room: - Gender: F [employer] Recruiter: tasneem : 1945 Requested By: ABBE Chen Order Number: [id number] Reading MD: Sandrine Franklin Measurements Intervals [place] Rate: 63 P: 34 NV: 168 QRS: 12 QRSD: 108 T: 28 QT: 413 QTc: 425 Interpretive Statements SINUS RHYTHM ST DEVIATION AND MODERATE T-WAVE ABNORMALITY, CONSIDER ANTERIOR ISCHEMIA ?PRIOR INFERIOR INFARCT DECREASED RATE 06/16/16 Electronically Signed On 07-12-2016 9:23:17 EDT by Sandrine Franklin
[2016-07-12] MEDS: NORCO, ANEXSIA 5/325MG TABLET (HYDROcodone/ACETAMINOPHEN) PO SCH ×4 (09:42→21:32)
[2016-07-12] MEDS: MULTIVITAMINS/MINERALS THERAP 1 TAB PO SCH (09:43)
[2016-07-12] MEDS: BACLOFEN 5MG PER 1/2 TABLET PO SCH ×2 (09:44→21:27)
[2016-07-12] MEDS: ASPIRIN 81 MG ENTERIC TAB PO SCH (09:44)
[2016-07-12] MEDS: BISOPROLOL FUM 2.5 MG PER 1/2TAB PO SCH (09:45)
[2016-07-12] MEDS: FOLIC ACID 1 MG TAB PO SCH (09:45)
[2016-07-12] MEDS: CLOPIDOGREL 75 MG TAB PO SCH (09:46)
[2016-07-12] MEDS: AMIODARONE 200 MG TAB (PACERONE) PO SCH (09:46)
[2016-07-12] MEDS: SPIRONOLACTONE 12.5MG PER 1/2 TABLET PO SCH (10:09)
[2016-07-12] MEDS: VITAMIN D 1,000 INTERNATIONAL UNITS TABLET PO SCH (10:09)
[2016-07-12] MEDS: POTASSIUM CHLORIDE 10 MEQ SR TABLET PO SCH (10:09)
[2016-07-12] MEDS: SERTRALINE HCL 50 MG TAB PO SCH (10:09)
[2016-07-12] MEDS: TORSEMIDE 20 MG TAB PO SCH ×2 (10:10→17:49)
--- NOTE | 2016-07-12 11:17 | IPNPDOC ---
Subjective Date Seen The patient was seen on 07/12/16. Subjective Chief Complaint/HPI The patient is a 71-year-old female admitted with a reason for visit of Healthcare Associated Pneumonia. General: Denies: Chills, Fatigue, Malaise, Night Sweats, Normal Appetite, Other Symptoms, ROS Unobtainable Constitutional: Denies: Chills, Fatigue, Fever, Lethargy, Malaise, Night Sweats , Other, Weakness, Weight Loss Eyes: Denies: Conjunctivae inflammation, Eyelid inflammation, Other, Pain, Redness, Vision change ENT: Denies: Dysphagia, Ear Pain, Epistaxis, Head Aches, Other Symptoms, Post Nasal Drip, Sinus Congestion, Sore Throat Skin: Denies: Breakdown, Bruising, Dry, Itching, Jaundice, Lesions, Nail Changes, Other, Rash Pulmonary: Reports: Dyspnea, Denies: Cough, Other Symptoms, Pleuritic Chest Pain Cardiovascular: Denies: Chest Pain, Edema, Lt Headedness, Orthopnea, Other Symptoms, Palpitations, Paroxysmal Noc. Dyspnea Gastrointestinal: Denies: Abdominal Pain, Constipation, Diarrhea, Hematochezia , Melena, Nausea, Other Symptoms, Vomiting Genitourinary: Denies: Dysuria, Frequency, Hematuria, Incontinence, Other Symptoms, Retention Objective Physical Examination General Exam: Positive: Alert, Cooperative, No Acute Distress, Other (morbidly obese) Eye Exam: Positive: Conjunctiva & lids normal, EOMI, PERRLA, Negative: Sclera icteric ENT Exam: Positive: Atraumatic, Mucous membr. moist/pink Neck Exam: Negative: JVD Chest Exam: Positive: Normal air movement, Rhonchi, Wheezing, Negative: Rales Heart Exam: Positive: Normal S1, Normal S2, Rate Normal Telemetry: Positive: Sinus Abdomen Exam: Positive: Normal bowel sounds, Other (obese), Soft, Negative: Tenderness Extremity Exam: Positive: Edema, Other (2 x 2 stage I decubitus ulcer noted in the left calf area. Mild tenderness to palpation, with some surrounding erythema , no induration noted.) Neuro Exam: Negative: Strength at 5/5 X4 ext (Residual dense left sided deficits - left hemiparesis from prior CVA) Psych Exam: Positive: Oriented x 3 Assessment /Plan Problems (1) HCAP (healthcare-associated pneumonia) Status: Acute Response to Treatment: Improving Discussed With: Patient Problem Specific Plan: Monitor Clinically, Repeat Labs Problem Text: HCAP +/- aspiration Continue with IV antibiotics - Zosyn, Vanco Sputum culture / gram stain. IS, Acapella Poor venous access - pending PICC line placement. Acute / chronic hypoxic respiratory failure - baseline 2L supplemental oxygen (2) COPD (chronic obstructive pulmonary disease) Status: Acute Response to Treatment: Improving Discussed With: Patient Problem Specific Plan: Monitor Clinically, Repeat Labs Problem Text: Respiratory treatments. O2 88-92%, baseline 2L Steroids. (3) Dyslipidemia Status: Chronic Problem Text: Lipitor (4) Afib Status: Chronic Discussed With: Patient Problem Text: Sinus, rate controlled. Zebeta, amiodarone. No anti-coagulation, anti-platelet therapy only with aspirin only as per home meds. (5) CKD (chronic kidney disease) Status: Chronic Discussed With: Patient Problem Specific Plan: Repeat Labs (6) Depression Status: Chronic Discussed With: Patient Problem Specific Plan: Monitor Clinically Problem Text: Continue zoloft. (7) Hypothyroid Status: Chronic Problem Text: Continue synthroid. (8) CAD (coronary artery disease) Status: Chronic Discussed With: Patient Problem Specific Plan: Monitor Clinically Problem Text: ACS ruled out. Aspirin, lipitor, plavix, zebeta (9) CVA, old, hemiparesis Status: Chronic Discussed With: Patient Problem Specific Plan: Monitor Clinically Problem Text: Continue with dual anti-platelet therapy - asa, plavix. Continue statin. (10) CHF (congestive heart failure) Status: Chronic Response to Treatment: Compensated Discussed With: Patient Problem Specific Plan: Monitor Clinically Problem Text: Grossly euvolemic, however some pitting edema which patient states is chronic. 2D echo pending. Aldactone, Demadex (11) Dysphagia Status: Chronic Discussed With: Patient Problem Specific Plan: Monitor Clinically, Repeat Tests Problem Text: Modified diet, aspiration precautions. (12) Pulmonary nodule Status: Chronic Discussed With: Patient Problem Text: Former smoker. Repeat interim CT as outpatient. Plan/VTE VTE Prophylaxis Ordered?: Yes Plan Diet: Continue Current Activity: Continue Current Therapy: PT, OT Respiratory: Wean Oxygen Diagnostics: Repeat Labs in AM, Obtain Cultures, TTE Anticipated Discharge: Long Term VS, I&O, 24H, Fishbone Vital Signs/I&O Vital Signs Date Time Temp Pulse Resp B/P Pulse Ox O2 Delivery O2 Flow Rate FiO2 3/27/17 09:45 59 128/63 07/12/16 09:42 20 Nasal Cannula 3.0 07/12/16 08:00 98.5 91 07/12/16 04:00 50 I&O- Last 24 Hours up to 6 AM 07/12/16 06:00 Intake Total 770 ml Output Total 0 ml Balance 770 ml Laboratory Data 24H LABS Laboratory Tests 2 07/11/16 22:00: Troponin I < 0.02 07/12/16 05:52: Troponin I < 0.02, Anion Gap 9, Blood Urea Nitrogen 25H, Creatinine 1.58H, Sodium Level 135L, Potassium Level 4.0, Chloride Level 97L, Carbon Dioxide Level 29, Calcium Level 8.4L, Magnesium Level 2.3 CBC/BMP Laboratory Tests 07/12/16 05:52 Calcium Level 8.4 L, Red Blood Count 4.02, Mean Corpuscular Volume 86.3, Mean Corpuscular Hemoglobin 27.2, Mean Corpuscular Hemoglobin Concent 31.5 L, Red Cell Distribution Width 15.3 H Microbiology Microbiology 07/11/16 Blood Culture, Received Pending 07/11/16 Blood Culture, Received Pending 07/11/16 Respiratory Virus Panel (PCR) (COREY) - Final, Complete 07/11/16 Influenza Virus Type A Antigen - Final, Complete 07/11/16 Influenza Virus Type B Antigen - Final, Complete ENRIKE KENNEDY MD Jul 12, 2016 11:17
[2016-07-12] MEDS: NYSTATIN 100,000 UNITS/GM TOPICAL PWD 15 GM TOP SCH ×2 (11:34→21:27)
[2016-07-12] MEDS: methylPREDNISolone INJ 125 MG/2 ML VIAL (J2930) IV SCH ×2 (14:19→23:47)
--- NOTE | 2016-07-12 17:42 | REP ---
PROCEDURE: PICC LINE INSERTION WITH SITE-RITE: 07/12/2016. The procedure was performed under the direct supervision of Dr. Johnson. The risks and benefits of the procedure were explained to the patient and informed consent was obtained. The right basilic vein was localized using ultrasound guidance. The skin was prepped and draped in a sterile fashion. 2% lidocaine was used as a local anesthetic. Using ultrasound guidance the basilic vein was cannulated and a 0.018 guidewire was inserted and advanced to the SVC using fluoroscopic guidance. The needle was removed and a 4.5 Latvian dilator and peel-away sheath was inserted over the guide wire. A 4.5 Latvian single lumen catheter was cut to length of 44 cm. The dilator was removed and the catheter was inserted over the guide wire with the tip ending in the SVC. The peel-away sheath was removed and the catheter was flushed with heparinized saline as per Hospital protocol. The catheter was affixed to the skin and a sterile dressing was applied. The the patient tolerated the procedure well and there were no immediate complications. 17 seconds of fluoro time was utilized for this procedure. Reviewed by AMBERLY Olguin 07/12/2016 05:26 PSigned by Fer Johnson MD 07/12/2016 05:33 P
[2016-07-12] MEDS: SODIUM CHLORIDE 0.9% INJ 10 ML SYR IV SCH (17:57)
[2016-07-12] MEDS: ATORVASTATIN 20 MG TAB PO SCH (21:28)
[2016-07-13] VITALS (7 sets, daily range): BP systolic 113–123; BP diastolic 57–60
[2016-07-13] MEDS: IPRATROPIUM 0.5MG/ALBUTEROL 2.5MG INH SOL UD 3ML (DUONEB)(J7620) NEB SCH ×4 (01:14→19:36)
[2016-07-13] MEDS: PIPERACILLIN/TAZOBACTAM SOD 3.375 GM in D5W MINI-BAG PLUS 50 ML IV SCH ×4 (03:41→21:14)
[2016-07-13] MEDS: LEVOTHYROXINE 0.05 MG TAB (50 MCG) PO SCH (06:18)
[2016-07-13] MEDS: HEPARIN SOD (PORCINE) 5000 UNITS/ML VIAL SC SCH ×3 (06:18→21:15)
[2016-07-13] MEDS: SODIUM CHLORIDE 0.9% INJ 10 ML SYR IV SCH ×2 (06:19→17:19)
[2016-07-13 06:44] LABS: MEAN CORPUSCULAR HEMOGLOBIN 27.7 pg (27.0-33.0); MEAN CORPUSCULAR HGB CONC 32.3 g/dl (32.0-36.5); MEAN CORPUSCULAR VOLUME 85.9 fl (80.0-96.0); RED CELL DISTRIBUTION WIDTH 15.2 % (11.5-14.5); WHITE BLOOD COUNT 12.2 K/mm3 (4.0-10.0)
[2016-07-13 07:07] LABS: CALCIUM LEVEL 8.3 MG/DL (8.8-10.2); CREATININE FOR GFR 1.92 MG/DL (0.55-1.02); GLOMERULAR FILTRATION RATE 27.4 (>39); POTASSIUM SERUM 4.3 MEQ/L (3.5-5.1)
[2016-07-13] MEDS: ADVAIR DISKUS 500/50 INH PWD INH SCH ×2 (08:03→21:08)
[2016-07-13] MEDS: SPIRONOLACTONE 12.5MG PER 1/2 TABLET PO SCH (08:19)
[2016-07-13] MEDS: MULTIVITAMINS/MINERALS THERAP 1 TAB PO SCH (08:19)
[2016-07-13] MEDS: VANCOMYCIN HCL 750 MG, VIAL MATE ADAPTER 1 EACH in D5W 250 ML IV SCH (08:19)
[2016-07-13] MEDS: SERTRALINE HCL 50 MG TAB PO SCH (08:19)
[2016-07-13] MEDS: ASPIRIN 81 MG ENTERIC TAB PO SCH (08:19)
[2016-07-13] MEDS: NORCO, ANEXSIA 5/325MG TABLET (HYDROcodone/ACETAMINOPHEN) PO SCH ×4 (08:20→21:15)
[2016-07-13] MEDS: CLOPIDOGREL 75 MG TAB PO SCH (08:20)
[2016-07-13] MEDS: BACLOFEN 5MG PER 1/2 TABLET PO SCH ×2 (08:20→21:14)
[2016-07-13] MEDS: VITAMIN D 1,000 INTERNATIONAL UNITS TABLET PO SCH (08:20)
[2016-07-13] MEDS: TORSEMIDE 20 MG TAB PO SCH (08:20)
[2016-07-13] MEDS: FOLIC ACID 1 MG TAB PO SCH (08:20)
[2016-07-13] MEDS: AMIODARONE 200 MG TAB (PACERONE) PO SCH (08:21)
[2016-07-13] MEDS: BISOPROLOL FUM 2.5 MG PER 1/2TAB PO SCH (08:21)
[2016-07-13] MEDS: POTASSIUM CHLORIDE 10 MEQ SR TABLET PO SCH (08:21)
[2016-07-13] MEDS: NYSTATIN 100,000 UNITS/GM TOPICAL PWD 15 GM TOP SCH ×2 (08:26→21:15)
[2016-07-13] MEDS: methylPREDNISolone INJ 125 MG/2 ML VIAL (J2930) IV SCH ×2 (11:27→23:59)
[2016-07-13] MEDS: SODIUM CHLORIDE 0.9% INJ 10 ML SYR IV PRN (11:28)
--- NOTE | 2016-07-13 16:43 | IPN ---
DATE: 07/13/2016 Ms. Sheridan is feeling well today. She has no complaints of pain or chest pain. Not particularly short of breath. Tolerating diet. Has had episodes of bradycardia on the monitor. Temperature is 97.7, pulse 57, respiratory rate 20, blood pressure 117/58, 90% on three liters. Input and output notable for a positive fluid balance of 750. Two bowel movements yesterday. Body mass index (BMI) is 40.4. She is awake, appropriately interactive, pleasantly conversant, making jokes, remembers me from previous examinations. She seems to have some left-sided neglect and weakness in the left side of her body. Breathing is symmetrical, rested. No accessory muscle use. Speaking in complete sentences. Heart is distant sounding, normal S1, S2. Abdomen is soft, doughy, nontender. There is left lower extremity edema. There is a bandage in place on her left posterior lower extremity, clean, dry and intact. LABORATORY DATA: White cell count 12.2, hemoglobin 10.7. BUN 29, creatinine 1.92. ASSESSMENT: This is a 71-year-old with healthcare-associated pneumonia, possible aspiration pneumonia, continuing with IV antibiotics. PLAN: 1. Healthcare-associated and/or aspiration-associated pneumonia. On day two of antibiotic therapy. I would anticipate a 5-7 day course depending on her clinical improvement which would mean that she would go home later this week or early next week. 2. The patient has chronic obstructive pulmonary disease (COPD) and is getting respiratory therapy. She is receiving steroids which can be weaned. 3. The patient has chronic kidney disease with worsening renal function. Medications are adjusted. 4. The patient has atrial fibrillation. She is regular on examination. She is on Zebeta and amiodarone, not anticoagulated consistent with her outpatient plan. 5. The patient has hypothyroidism treated with Synthroid. 6. The patient has a history of coronary artery disease. 7. The patient has previous cerebrovascular accident (CVA) with left-sided hemiparesis. 8. The patient has a history of congestive heart failure. 9. The patient has a pulmonary nodule requiring outpatient followup.
[2016-07-13] MEDS: ATORVASTATIN 20 MG TAB PO SCH (21:15)
[2016-07-14] MEDS: IPRATROPIUM 0.5MG/ALBUTEROL 2.5MG INH SOL UD 3ML (DUONEB)(J7620) NEB SCH ×5 (01:27→20:40)
[2016-07-14] MEDS: PIPERACILLIN/TAZOBACTAM SOD 3.375 GM in D5W MINI-BAG PLUS 50 ML IV SCH ×4 (03:44→20:43)
[2016-07-14 05:25] VITALS: BP 134/61
[2016-07-14] MEDS: HEPARIN SOD (PORCINE) 5000 UNITS/ML VIAL SC SCH ×3 (06:00→20:44)
[2016-07-14] MEDS: LEVOTHYROXINE 0.05 MG TAB (50 MCG) PO SCH (06:01)
[2016-07-14 07:11] LABS: MEAN CORPUSCULAR HEMOGLOBIN 27.4 pg (27.0-33.0); MEAN CORPUSCULAR VOLUME 85.5 fl (80.0-96.0); RED CELL DISTRIBUTION WIDTH 15.2 % (11.5-14.5)
[2016-07-14 07:20] LABS: CALCIUM LEVEL 8.5 MG/DL (8.8-10.2); CREATININE FOR GFR 1.64 MG/DL (0.55-1.02); GLOMERULAR FILTRATION RATE 32.9 (>39); POTASSIUM SERUM 4.2 MEQ/L (3.5-5.1)
[2016-07-14] MEDS: ADVAIR DISKUS 500/50 INH PWD INH SCH ×2 (07:36→19:28)
--- NOTE | 2016-07-14 07:48 | PHACANCOPD ---
PHARMACY VANCOMYCIN DOSING Pt Demographics Demographics Patient Age:71 , Weight:109.600 , Gender: female Adjusted Body Weight Date: 07/11/16, Adjusted Body Weight: [76] Kg Events Past 24 Hours Events Past 24 Hours: YES: Change in CrCl Vancomycin Vancomycin indication: HCAP Vancomycin Target Ranges: 15-20 mcg/ml Vancomycin Load Y/N: Yes Load Dose Date Time Vancomycin Load Dose: 1000mg IV q12h x2 doses Vancomycin Dose Date: 07/13/16. Current Vancomycin Dose: [750mg IV q24h @08] Intermittent Dosing?: No Labs Labs Item Value Date Time White Blood Count 12.2 K/mm3 H 07/13/16 0623 White Blood Count 7.0 K/mm3 07/14/16 0645 Creatinine 1.92 MG/DL H 07/13/16 0623 Creatinine 1.64 MG/DL H 07/14/16 0645 Vancomycin Level Trough 16.6 UG/ML 07/14/16 0645 Micro Microbiology 07/11/16 Blood Culture - Preliminary, Resulted No Growth after 48 hours. All Specime... 07/11/16 Blood Culture - Preliminary, Resulted No Growth after 48 hours. All Specime... 07/12/16 MRSA Screen - Final, Complete 07/11/16 Respiratory Virus Panel (PCR) (COREY) - Final, Complete 07/11/16 Influenza Virus Type A Antigen - Final, Complete 07/11/16 Influenza Virus Type B Antigen - Final, Complete Creatinine Clearance Date:07/11/16. Creatinine Clearance: [44 ml/min using adjusted BW]. Date:07/14/16. Creatinine Clearance: [39 ml/min using ABW]. Assessment and Plan Maintaining Current Dose?: Yes Reason for dose change: No Dose Change, Other Pharmacist Note Pharmacist Note Date: 07/14/16. Pharmacist note: Vanco trough came back at 16.6. Patient will remain on Vancomycin 750mg Q24H. Blood specimens were negative x2. Patient's torsemide was discontinued on 07/13/16. Suggest drawing another trough after 3 more doses. Will continue to monitor renal function. Date: 07/11/16. Pharmacist note: pt is being treated for HCAP/aspiration pneumonia, she is currently an [facility] resident. pt was also previously on vancomycin here earlier this month. Her SCr is about at baseline, she has also been continued on her home dose of torsemide 60mg BID and received a dose of lasix in the ER. I will start with a gentle load of 1g IV q12h x2 doses, then start 750mg q24h. We will monitor renal function and order a trough as necessary. Dede Holder Pharm.D. Jul 14, 2016 07:48
[2016-07-14] MEDS: NORCO, ANEXSIA 5/325MG TABLET (HYDROcodone/ACETAMINOPHEN) PO SCH ×4 (08:26→20:43)
[2016-07-14] MEDS: VANCOMYCIN HCL 750 MG, VIAL MATE ADAPTER 1 EACH in D5W 250 ML IV SCH (08:26)
[2016-07-14] MEDS: FOLIC ACID 1 MG TAB PO SCH (08:27)
[2016-07-14] MEDS: ASPIRIN 81 MG ENTERIC TAB PO SCH (08:27)
[2016-07-14] MEDS: POTASSIUM CHLORIDE 10 MEQ SR TABLET PO SCH (08:27)
[2016-07-14] MEDS: SPIRONOLACTONE 12.5MG PER 1/2 TABLET PO SCH (08:27)
[2016-07-14] MEDS: BACLOFEN 5MG PER 1/2 TABLET PO SCH ×2 (08:27→20:43)
[2016-07-14] MEDS: SERTRALINE HCL 50 MG TAB PO SCH (08:27)
[2016-07-14] MEDS: CLOPIDOGREL 75 MG TAB PO SCH (08:27)
[2016-07-14] MEDS: MULTIVITAMINS/MINERALS THERAP 1 TAB PO SCH (08:27)
[2016-07-14] MEDS: AMIODARONE 200 MG TAB (PACERONE) PO SCH (08:27)
[2016-07-14] MEDS: VITAMIN D 1,000 INTERNATIONAL UNITS TABLET PO SCH (08:27)
[2016-07-14] MEDS: BISOPROLOL FUM 2.5 MG PER 1/2TAB PO SCH (08:28)
[2016-07-14 08:29] VITALS: BP 105/53
[2016-07-14] MEDS: NYSTATIN 100,000 UNITS/GM TOPICAL PWD 15 GM TOP SCH ×2 (08:29→20:44)
--- NOTE | 2016-07-14 10:54 | IPNPDOC ---
Text Note Date of Service The patient was seen on 07/14/16. NOTE Subjective: 71-year-old female seen and examined at bedside. She had no acute complaints. She denied fevers, chills, chest pain, shortness of breath, nausea, vomiting, diarrhea, constipation, pain anywhere, rashes or lesions anywhere. She denied dizziness and headache. Objective: Vitals: T:97.6 , BP:105/53, RR: 20, P: 60, O2 Saturation: 93% on 3L NC. General: Pleasant elderly and obese female resting comfortably in bed. Cooperative.AAO x 3. HEENT: Head: normocephalic, atraumatic. Eyes: Sclera are nonicteric. Nose: No external lesions. Neck: No thyromegaly. Respiratory: +Wheezes appreciated in upper anterior lung joyner bilaterally. Limited lung exam due to limited patient mobility. Cardiovascular: Extremely distant heart sounds most likely secondary to obese body habitus. +S1S2. No murmurs appreciable. RRR. Abdomen: soft, nontender, nondistended, no hepatosplenomegaly appreciated. Bowel sounds present. Extremities: LLE and L ankle edema present. RLE without edema. Neurological: No focal neurologic deficits appreciated bilaterally. Able to move L foot and extend it a bit. Did not strength test LLE and LUE fully as patient has hx of CVA with L hemiparesis. Integumentary: +Bruising in dorsal aspect of upper extremities and hands bilaterally (most likely due to patient's blood thinner and IV blood draws). Vascular: +2 pulses palpable and symmetrical in upper extremities bilaterally. + 2 dorsalis pedis pulse in RLE. Laboratory data: Please see below. WBC down to 7 from 12.2 yesterday. Hgb at 10.2 today from 10.7 yesterday. Na at 135 from 135 yesterday--stable. BUN 32 from 29 yesterday. Cr 1.64 from 1.92 yesterday. Glucose 161 (H). Vancomycin Trough Level: 16.6. Microbiology: Blood Cx: NGTD x 48 hours. MRSA Screen: (-) RSV Panel: (-) Influenza A&B: (-) Imaging: No new imaging today. Assessment: This is a 71 yo F presenting for Healthcare Associated Pneumonia/ Possible Aspiration Pneumonia. Plan: HCAP/Aspiration Pneumonia: continue with IV antibiotics: Zosyn 3.375 gm q6h and vancomycin 750 mg IV q24h. Vanc Trough level therapeutic today at 16.6. COPD: Supplemental oxygen to keep sats >88%-92%. Currently on 3 liters of O2 satting in 90s. Continue with respiratory therapy treatments: duonebs Rq6h nebulizers and q2h PRN, advair diskus 1 puff BID. Continue aggressive pulmonary toilet, incentive spirometry, and acapella. On solumedrol 60 mg q12h IV. Will taper steroids and place on prednisone PO 60 mg qdaily. CKD with worsening Kidney Fx: BUN up today at 32 from 29 yesterday, but Cr improved at 1.64 from 1.92. Continue current management with medication adjustments. Torsemide wasdiscontinued yesterday. Encourage oral hydration. Atrial Fibrillation: Continue rate control with bisoprolol (zebeta) and rhythm control amiodarone. Not on anticoagulation. Hypothyroidism: continue synthroid 0.05 mg daily. Coronary Artery Disease: continue atorvastatin 40 mg QHS. Continue aspirin 81 mg daily. CVA with L-sided Hemiparesis: stable. Continue aspirin 81 mg daily. Monitor clinically. Hx of CHF: on aldactone and bisoprolol (zebeta). Pulmonary Nodule: Follow up as outpatient. Continue home medications. DVT ppx: heparin 5000 units sc q6 hours Immunizations as per protocol. I have both independently examined this patient as well as reviewed documentation. I have discussed the findings in detail with Dr. Maguire the findings and plan of treatment as documented in the note. I will continue to follow the patient and offer further guidance to the patients care as necessary. VS,Ramezbone, I+O VS, Fishbone, I+O Laboratory Tests 07/14/16 06:45 Calcium Level 8.5 L, Red Blood Count 3.72 L, Mean Corpuscular Volume 85.5, Mean Corpuscular Hemoglobin 27.4, Mean Corpuscular Hemoglobin Concent 32.0, Red Cell Distribution Width 15.2 H Vital Signs Date Time Temp Pulse Resp B/P Pulse Ox O2 Delivery O2 Flow Rate FiO2 07/14/16 08:56 18 07/14/16 08:29 105/53 07/14/16 08:28 62 07/14/16 07:58 Nasal Cannula 3.0 3/29/17 07:30 97.6 93 07/12/16 04:00 50 I&O- Last 24 Hours up to 6 AM 07/14/16 06:00 Intake Total 480 ml Output Total 0 ml Balance 480 ml AMADEO MAGUIRESD-1 Jul 14, 2016 10:54 JASBIR CHILD MD Jul 19, 2016 15:00 AMADEO MAGUIRE-1 Jul 14, 2016 10:54
[2016-07-14] MEDS: methylPREDNISolone INJ 125 MG/2 ML VIAL (J2930) IV SCH (11:26)
[2016-07-14] MEDS: SODIUM CHLORIDE 0.9% INJ 10 ML SYR IV PRN (11:26)
[2016-07-14 12:00] VITALS: BP 120/79
[2016-07-14] MEDS: predniSONE 20 MG TAB PO SCH (14:04)
[2016-07-14 16:00] VITALS: BP 130/62
[2016-07-14] MEDS: SODIUM CHLORIDE 0.9% INJ 10 ML SYR IV SCH ×2 (16:28)
[2016-07-14 20:00] VITALS: BP 134/65
[2016-07-14] MEDS: ATORVASTATIN 20 MG TAB PO SCH (20:43)
[2016-07-14 23:59] VITALS: BP 136/69
[2016-07-15] MEDS: IPRATROPIUM 0.5MG/ALBUTEROL 2.5MG INH SOL UD 3ML (DUONEB)(J7620) NEB SCH ×4 (01:27→20:00)
[2016-07-15] MEDS: PIPERACILLIN/TAZOBACTAM SOD 3.375 GM in D5W MINI-BAG PLUS 50 ML IV SCH ×4 (03:38→21:09)
[2016-07-15 04:00] VITALS: BP 124/86
[2016-07-15] MEDS: LEVOTHYROXINE 0.05 MG TAB (50 MCG) PO SCH (05:04)
[2016-07-15] MEDS: SODIUM CHLORIDE 0.9% INJ 10 ML SYR IV SCH ×2 (05:05→18:00)
[2016-07-15] MEDS: HEPARIN SOD (PORCINE) 5000 UNITS/ML VIAL SC SCH ×3 (05:05→21:44)
[2016-07-15 05:25] LABS: MEAN CORPUSCULAR HEMOGLOBIN 27.5 pg (27.0-33.0); MEAN CORPUSCULAR VOLUME 86.1 fl (80.0-96.0); RED CELL DISTRIBUTION WIDTH 15.2 % (11.5-14.5); WHITE BLOOD COUNT 6.2 K/mm3 (4.0-10.0)
[2016-07-15 06:02] LABS: CALCIUM LEVEL 8.3 MG/DL (8.8-10.2); CREATININE FOR GFR 1.7 MG/DL (0.55-1.02); GLOMERULAR FILTRATION RATE 31.5 (>39)
[2016-07-15 07:30] VITALS: BP 146/82
[2016-07-15] MEDS: ADVAIR DISKUS 500/50 INH PWD INH SCH ×2 (07:45→20:07)
[2016-07-15] MEDS: VITAMIN D 1,000 INTERNATIONAL UNITS TABLET PO SCH (08:21)
[2016-07-15] MEDS: POTASSIUM CHLORIDE 10 MEQ SR TABLET PO SCH (08:21)
[2016-07-15] MEDS: AMIODARONE 200 MG TAB (PACERONE) PO SCH (08:21)
[2016-07-15] MEDS: ASPIRIN 81 MG ENTERIC TAB PO SCH (08:21)
[2016-07-15] MEDS: VANCOMYCIN HCL 750 MG, VIAL MATE ADAPTER 1 EACH in D5W 250 ML IV SCH (08:21)
[2016-07-15] MEDS: SERTRALINE HCL 50 MG TAB PO SCH (08:22)
[2016-07-15] MEDS: CLOPIDOGREL 75 MG TAB PO SCH (08:22)
[2016-07-15] MEDS: BACLOFEN 5MG PER 1/2 TABLET PO SCH ×2 (08:22→21:43)
[2016-07-15] MEDS: FOLIC ACID 1 MG TAB PO SCH (08:22)
[2016-07-15] MEDS: MULTIVITAMINS/MINERALS THERAP 1 TAB PO SCH (08:22)
[2016-07-15] MEDS: predniSONE 20 MG TAB PO SCH (08:22)
[2016-07-15] MEDS: NORCO, ANEXSIA 5/325MG TABLET (HYDROcodone/ACETAMINOPHEN) PO SCH ×4 (08:23→21:43)
[2016-07-15] MEDS: BISOPROLOL FUM 2.5 MG PER 1/2TAB PO SCH (08:24)
[2016-07-15] MEDS: NYSTATIN 100,000 UNITS/GM TOPICAL PWD 15 GM TOP SCH ×2 (08:24→21:44)
[2016-07-15] MEDS: SPIRONOLACTONE 12.5MG PER 1/2 TABLET PO SCH (08:25)
[2016-07-15 13:45] VITALS: BP 121/58
--- NOTE | 2016-07-15 16:07 | IPNPDOC ---
Text Note Date of Service The patient was seen on 07/15/16. NOTE Subjective: 71-year-old female seen and examined at bedside. She had no acute complaints. She denied fevers, chills, chest pain, shortness of breath, nausea, vomiting, diarrhea, constipation, pain anywhere, rashes or lesions anywhere. She denied dizziness and headache. Objective: Vitals: T: 98.3, BP: 124/86, RR: 18, P: 70, O2 Saturation: 90% on 3L NC. General: Pleasant elderly and obese female resting comfortably in bed. Cooperative. AAO x 3. HEENT: Head: normocephalic, atraumatic. Eyes: Sclera are nonicteric. Nose: No external lesions. Neck: No thyromegaly. Respiratory: Decreased wheezing from yesterday appreciated in upper anterior lung joyner bilaterally. No rales, rhonchi, or crackles appreciated. Limited lung exam due to limited patient mobility. Cardiovascular: Extremely distant heart sounds most likely secondary to obese body habitus. +S1S2. No murmurs appreciable. RRR. Abdomen: soft, nontender, nondistended, no hepatosplenomegaly appreciated. Bowel sounds present. Extremities: LLE and L ankle/foot edema present. RLE without edema. Neurological: No focal neurologic deficits appreciated other than L-sided hemiparesis from hx of CVA. Integumentary: +Bruising in dorsal aspect of upper extremities and hands bilaterally (most likely due to patient's blood thinner and IV blood draws). Vascular: +2 pulses palpable and symmetrical in upper extremities bilaterally. Laboratory data: Please see below. WBC down to 6.2 from 7 yesterday. Hgb at 10.3 today from 10.2 yesterday. Na at 139 from 135 yesterday--stable. BUN 36 from 32 yesterday. Cr 1.70 from 1.64 yesterday. Glucose 189 (H) from 161 yesterday. Microbiology: Blood Cx: NGTD x 72 hours. MRSA Screen: (-) RSV Panel: (-) Influenza A&B: (-) Imaging: No new imaging today. Assessment: This is a 71 yo F presenting for Healthcare Associated Pneumonia/ Possible Aspiration Pneumonia. Plan: HCAP/Aspiration Pneumonia: continue with IV antibiotics: Zosyn 3.375 gm q6h and vancomycin 750 mg IV q24h. Vanc Trough level therapeutic yesterday at 16.6. COPD: Supplemental oxygen to keep sats >88%-92%. Currently on 3 liters of O2 satting in 90s. Continue with respiratory therapy treatments: duonebs Rq6h nebulizers and q2h PRN, advair diskus 1 puff BID. Continue aggressive pulmonary toilet, incentive spirometry, and acapella. Will taper steroids and decrease prednisone PO 60 mg qdaily to 40 mg qdaily. CKD with worsening Kidney Fx: BUN up today at 36 from 32 yesterday, but Cr improved at 1.70 from 1.64. Continue current management with medication adjustments. Continue to monitor daily BMPs. Torsemide was discontinued 2 days ago. Encourage oral hydration. Atrial Fibrillation: Continue rate control with bisoprolol (zebeta) and rhythm control amiodarone. Not on anticoagulation. Hypothyroidism: continue synthroid 0.05 mg daily. Coronary Artery Disease: continue atorvastatin 40 mg QHS. Continue aspirin 81 mg daily. CVA with L-sided Hemiparesis: stable. Continue aspirin 81 mg daily. Monitor clinically. Hx of CHF: on aldactone and bisoprolol (zebeta). Pulmonary Nodule: Follow up as outpatient. Continue home medications. DVT ppx: heparin 5000 units sc q6 hours Immunizations as per protocol. I have both independently examined this patient as well as reviewed documentation. I have discussed the findings in detail with Dr. Maguire the findings and plan of treatment as documented in the note. I will continue to follow the patient and offer further guidance to the patients care as necessary. VS,Ramezbone, I+O VS, Fishbone, I+O Laboratory Tests 07/15/16 05:06 Calcium Level 8.3 L, Red Blood Count 3.74 L, Mean Corpuscular Volume 86.1, Mean Corpuscular Hemoglobin 27.5, Mean Corpuscular Hemoglobin Concent 32.0, Red Cell Distribution Width 15.2 H Vital Signs Date Time Temp Pulse Resp B/P Pulse Ox O2 Delivery O2 Flow Rate FiO2 07/15/16 14:49 16 07/15/16 13:15 Nasal Cannula 3.0 07/15/16 08:24 62 146/82 07/15/16 07:30 97.8 93 07/12/16 04:00 50 I&O- Last 24 Hours up to 6 AM 07/15/16 06:00 Intake Total 1030 ml Balance 1030 ml AMADEO MAGUIRE OGME-1 Jul 15, 2016 16:07 JASBIR CHILD MD Jul 19, 2016 15:00 AMADEO MAGUIRE OGME-1 Jul 15, 2016 16:07
[2016-07-15] MEDS: ATORVASTATIN 20 MG TAB PO SCH (21:44)
[2016-07-15 22:00] VITALS: BP 125/60
[2016-07-16] MEDS: IPRATROPIUM 0.5MG/ALBUTEROL 2.5MG INH SOL UD 3ML (DUONEB)(J7620) NEB SCH ×4 (02:01→18:48)
[2016-07-16] MEDS: PIPERACILLIN/TAZOBACTAM SOD 3.375 GM in D5W MINI-BAG PLUS 50 ML IV SCH ×4 (03:10→21:54)
[2016-07-16] MEDS: HEPARIN SOD (PORCINE) 5000 UNITS/ML VIAL SC SCH ×3 (05:07→21:54)
[2016-07-16] MEDS: LEVOTHYROXINE 0.05 MG TAB (50 MCG) PO SCH (05:07)
[2016-07-16] MEDS: SODIUM CHLORIDE 0.9% INJ 10 ML SYR IV SCH ×2 (05:07→17:57)
[2016-07-16 05:23] LABS: MEAN CORPUSCULAR HEMOGLOBIN 27.2 pg (27.0-33.0); MEAN CORPUSCULAR HGB CONC 31.8 g/dl (32.0-36.5); MEAN CORPUSCULAR VOLUME 85.6 fl (80.0-96.0); RED CELL DISTRIBUTION WIDTH 15.1 % (11.5-14.5); WHITE BLOOD COUNT 7.2 K/mm3 (4.0-10.0)
[2016-07-16 05:48] LABS: CALCIUM LEVEL 8.2 MG/DL (8.8-10.2); CREATININE FOR GFR 1.37 MG/DL (0.55-1.02); GLOMERULAR FILTRATION RATE 40.5 (>39); POTASSIUM SERUM 4.6 MEQ/L (3.5-5.1)
[2016-07-16 06:00] VITALS: BP 127/60
[2016-07-16] MEDS: VANCOMYCIN HCL 750 MG, VIAL MATE ADAPTER 1 EACH in D5W 250 ML IV SCH (07:47)
[2016-07-16] MEDS: ADVAIR DISKUS 500/50 INH PWD INH SCH ×2 (08:26→19:16)
[2016-07-16] MEDS: NYSTATIN 100,000 UNITS/GM TOPICAL PWD 15 GM TOP SCH ×2 (09:00→21:57)
[2016-07-16] MEDS ORDERED: predniSONE 20 MG TAB PO SCH (09:00)
[2016-07-16] MEDS: SPIRONOLACTONE 12.5MG PER 1/2 TABLET PO SCH (09:06)
[2016-07-16] MEDS: ASPIRIN 81 MG ENTERIC TAB PO SCH (09:06)
[2016-07-16] MEDS: BACLOFEN 5MG PER 1/2 TABLET PO SCH ×2 (09:06→21:56)
[2016-07-16] MEDS: BISOPROLOL FUM 2.5 MG PER 1/2TAB PO SCH (09:07)
[2016-07-16] MEDS: AMIODARONE 200 MG TAB (PACERONE) PO SCH (09:07)
[2016-07-16] MEDS: SERTRALINE HCL 50 MG TAB PO SCH (09:08)
[2016-07-16] MEDS: VITAMIN D 1,000 INTERNATIONAL UNITS TABLET PO SCH (09:08)
[2016-07-16] MEDS: POTASSIUM CHLORIDE 10 MEQ SR TABLET PO SCH (09:09)
[2016-07-16] MEDS: MULTIVITAMINS/MINERALS THERAP 1 TAB PO SCH (09:09)
[2016-07-16] MEDS: CLOPIDOGREL 75 MG TAB PO SCH (09:09)
[2016-07-16] MEDS: FOLIC ACID 1 MG TAB PO SCH (09:10)
[2016-07-16] MEDS: NORCO, ANEXSIA 5/325MG TABLET (HYDROcodone/ACETAMINOPHEN) PO SCH ×4 (09:10→21:55)
[2016-07-16 14:00] VITALS: BP 119/56
[2016-07-16] MEDS: ATORVASTATIN 20 MG TAB PO SCH (21:56)
[2016-07-16 22:00] VITALS: BP 136/72
--- NOTE | 2016-07-16 22:18 | IPNPDOC ---
Text Note Date of Service The patient was seen on 07/16/16. NOTE Subjective: 71-year-old female seen and examined at bedside. She had no acute complaints. She denied fevers, chills, chest pain, shortness of breath, nausea, vomiting, diarrhea, constipation, pain anywhere, rashes or lesions anywhere. She denied dizziness and headache. Admits to cough and difficulty expectorating sputum/mucous. Admits to sore throat. States she did not do incentive spirometer or accapella yesterday as she could not reach it despite my encouraging her to call nurse to hand the devices to her. Objective: Vitals: T: 96.6, BP: 127/60, RR: 18, P: 58, O2 Saturation: 94% on 3L NC. General: Pleasant elderly and obese female resting comfortably in bed. Cooperative. AAO x 3. HEENT: Head: normocephalic, atraumatic. Eyes: Sclera are nonicteric. Nose: No external lesions. Neck: No thyromegaly. Respiratory: More clearer anterior lung joyner today from yesterday bilaterally. No rales, rhonchi, or crackles appreciated. Limited lung exam due to limited patient mobility. Cardiovascular: Extremely distant heart sounds most likely secondary to obese body habitus. +S1S2. No murmurs appreciable. RRR. Abdomen: soft, nontender, nondistended, no hepatosplenomegaly appreciated. Bowel sounds present. Extremities: LLE and L ankle/foot edema present. RLE without edema. Neurological: No focal neurologic deficits appreciated other than L-sided hemiparesis from hx of CVA. Integumentary: +Bruising in dorsal aspect of upper extremities and hands bilaterally (most likely due to patient's blood thinner and IV blood draws). Vascular: +2 pulses palpable and symmetrical in upper extremities bilaterally and +2 dorsalis pedis pulses of LE's bilaterally. Laboratory data: Please see below. WBC down to 7.2. Hgb at 9.9 today from 10.3 yesterday. Na at 141 BUN 38 from 36 yesterday. Cr 1.37 from 1.70 yesterday. Glucose 145 (H) from 189 yesterday. Microbiology: Blood Cx: NGTD x 5 days. MRSA Screen: (-) RSV Panel: (-) Influenza A&B: (-) Imaging: No new imaging today. Assessment: This is a 71 yo F presenting for Healthcare Associated Pneumonia/ Possible Aspiration Pneumonia. Plan: HCAP/Aspiration Pneumonia: continue with IV antibiotics: Zosyn 3.375 gm q6h and vancomycin 750 mg IV q24h. Vanc Trough level therapeutic 2 days ago at 16.6. This is Day 6 of antibiotics. COPD: Supplemental oxygen to keep sats >88%-92%. Currently on 3 liters of O2 satting in 90s. Continue with respiratory therapy treatments: duonebs Rq6h nebulizers and q2h PRN, advair diskus 1 puff BID. Continue aggressive pulmonary toilet, incentive spirometry, and acapella. Will taper steroids and decrease prednisone PO 40 mg qdaily to 30 mg qdaily. Have added cepacol for sore throat. CKD with worsening Kidney Fx: BUN up today at 38 from 36 yesterday, but Cr improved at 1.37 from 1.70. Continue current management with medication adjustments. Continue to monitor daily BMPs. Torsemide was discontinued 3 days ago. Encourage oral hydration. Atrial Fibrillation: Continue rate control with bisoprolol (zebeta) and rhythm control amiodarone. Not on anticoagulation. Hypothyroidism: continue synthroid 0.05 mg daily. Coronary Artery Disease: continue atorvastatin 40 mg QHS. Continue aspirin 81 mg daily. CVA with L-sided Hemiparesis: stable. Continue aspirin 81 mg daily. Monitor clinically. Have encouraged nursing to get patient moving on hazel lift to prevent further physical deconditioning. Hx of CHF: on aldactone and bisoprolol (zebeta). Pulmonary Nodule: Follow up as outpatient. Continue home medications. DVT ppx: heparin 5000 units sc q6 hours Immunizations as per protocol. I have both independently examined this patient as well as reviewed documentation. I have discussed the findings in detail with Dr. Maguire the findings and plan of treatment as documented in the note. I will continue to follow the patient and offer further guidance to the patients care as necessary. VS,Fishbone, I+O VS, Fishbone, I+O Laboratory Tests 07/16/16 05:12 Calcium Level 8.2 L, Red Blood Count 3.65 L, Mean Corpuscular Volume 85.6, Mean Corpuscular Hemoglobin 27.2, Mean Corpuscular Hemoglobin Concent 31.8 L, Red Cell Distribution Width 15.1 H Vital Signs Date Time Temp Pulse Resp B/P Pulse Ox O2 Delivery O2 Flow Rate FiO2 07/16/16 21:55 16 07/16/16 19:17 Nasal Cannula 3.0 07/16/16 14:00 96.9 54 119/56 90 07/12/16 04:00 50 I&O- Last 24 Hours up to 6 AM 07/16/16 06:00 Intake Total 840 ml Output Total 0 ml Balance 840 ml AMADEO MAGUIRE OGME-1 Jul 16, 2016 22:18 JASBIR CHILD MD Jul 19, 2016 15:01
[2016-07-16] MEDS: SODIUM CHLORIDE 0.9% INJ 10 ML SYR IV PRN (23:16)
[2016-07-17] MEDS: IPRATROPIUM 0.5MG/ALBUTEROL 2.5MG INH SOL UD 3ML (DUONEB)(J7620) NEB SCH ×4 (00:42→19:41)
[2016-07-17] MEDS: PIPERACILLIN/TAZOBACTAM SOD 3.375 GM in D5W MINI-BAG PLUS 50 ML IV SCH ×4 (03:14→22:04)
[2016-07-17 06:00] VITALS: BP 148/69
[2016-07-17] MEDS: SODIUM CHLORIDE 0.9% INJ 10 ML SYR IV SCH ×2 (06:26→19:01)
[2016-07-17] MEDS: HEPARIN SOD (PORCINE) 5000 UNITS/ML VIAL SC SCH ×3 (06:27→22:03)
[2016-07-17] MEDS: LEVOTHYROXINE 0.05 MG TAB (50 MCG) PO SCH (06:27)
[2016-07-17 06:52] LABS: MEAN CORPUSCULAR HEMOGLOBIN 27.2 pg (27.0-33.0); MEAN CORPUSCULAR HGB CONC 31.5 g/dl (32.0-36.5); MEAN CORPUSCULAR VOLUME 86.5 fl (80.0-96.0); RED CELL DISTRIBUTION WIDTH 15.3 % (11.5-14.5); WHITE BLOOD COUNT 10.6 K/mm3 (4.0-10.0)
[2016-07-17] MEDS: ADVAIR DISKUS 500/50 INH PWD INH SCH ×2 (07:12→19:37)
[2016-07-17 07:25] LABS: CALCIUM LEVEL 8.1 MG/DL (8.8-10.2); CREATININE FOR GFR 1.29 MG/DL (0.55-1.02); GLOMERULAR FILTRATION RATE 43.4 (>39); POTASSIUM SERUM 4.4 MEQ/L (3.5-5.1)
[2016-07-17] MEDS: ASPIRIN 81 MG ENTERIC TAB PO SCH (08:18)
[2016-07-17] MEDS: NORCO, ANEXSIA 5/325MG TABLET (HYDROcodone/ACETAMINOPHEN) PO SCH ×4 (08:19→22:02)
[2016-07-17] MEDS: FOLIC ACID 1 MG TAB PO SCH (08:19)
[2016-07-17] MEDS: predniSONE 10 MG TAB PO SCH (08:19)
[2016-07-17] MEDS: CLOPIDOGREL 75 MG TAB PO SCH (08:20)
[2016-07-17] MEDS: SPIRONOLACTONE 12.5MG PER 1/2 TABLET PO SCH (08:20)
[2016-07-17] MEDS: BACLOFEN 5MG PER 1/2 TABLET PO SCH ×2 (08:21→22:02)
[2016-07-17] MEDS: MULTIVITAMINS/MINERALS THERAP 1 TAB PO SCH (08:21)
[2016-07-17] MEDS: POTASSIUM CHLORIDE 10 MEQ SR TABLET PO SCH (08:21)
[2016-07-17] MEDS: SERTRALINE HCL 50 MG TAB PO SCH (08:21)
[2016-07-17] MEDS: VITAMIN D 1,000 INTERNATIONAL UNITS TABLET PO SCH (08:21)
[2016-07-17] MEDS: VANCOMYCIN HCL 750 MG, VIAL MATE ADAPTER 1 EACH in D5W 250 ML IV SCH (08:21)
[2016-07-17] MEDS: AMIODARONE 200 MG TAB (PACERONE) PO SCH (08:22)
[2016-07-17] MEDS: BISOPROLOL FUM 2.5 MG PER 1/2TAB PO SCH (08:22)
[2016-07-17] MEDS: SANTYL OINT 30GM TOP SCH (09:00)
[2016-07-17] MEDS: NYSTATIN 100,000 UNITS/GM TOPICAL PWD 15 GM TOP SCH ×2 (09:00→22:04)
--- NOTE | 2016-07-17 10:01 | IPNPDOC ---
Text Note Date of Service The patient was seen on 07/17/16. NOTE Subjective: 71-year-old female seen and examined at bedside. She has no acute complaints. She denies fevers, chills, chest pain, shortness of breath, nausea, vomiting, diarrhea, pain anywhere, rashes or lesions anywhere. She denies dizziness and headache. Admits to cough and difficulty expectorating sputum/ mucous. States sore throat better than yesterday. States she did use incentive spirometer and accapella yesterday, but was still not able to expectorate anything. Admits to constipation but would like to see if she can pass BM on her own without laxatives. Nursing also reports LLE wound on lateral aspect of L leg and also ulcer on lateral malleolus of left leg. Objective: Vitals: T:97.5, BP: 148/89, RR:20, P:62, O2 Saturation: 95% on 3L NC. General: Pleasant elderly and obese female resting comfortably in bed. Cooperative. AAO x 3. HEENT: Head: normocephalic, atraumatic. Eyes: Sclera are nonicteric. Nose: No external lesions. Neck: No thyromegaly. Respiratory: Clear to auscultation bilaterally. No rales, rhonchi, or crackles appreciated. However, very limited lung exam due to limited patient mobility. Cardiovascular: Extremely distant heart sounds most likely secondary to obese body habitus. +S1S2. No murmurs appreciable. RRR. Abdomen: soft, nontender, nondistended, no hepatosplenomegaly appreciated. Bowel sounds present. Extremities: LLE and L ankle/foot +2 pitting edema present. RLE without edema. Has L lateral malleolus and LLE lateral aspect wound. Neurological: No focal neurologic deficits appreciated other than L-sided hemiparesis from hx of CVA. Integumentary: +Bruising in dorsal aspect of upper extremities and hands bilaterally (most likely due to patient's blood thinner and IV blood draws). Vascular: +2 radial pulses bilaterally. +2 RLE dorsalis pedis pulse, and +1 dorsalis pedis and posterior tibialis pulses of LLE. Laboratory data: Please see below. WBC up to 10.6 from 7.2 yesterday . Hgb up 10.4 from 9.9 yesterday. Na at 137 from 141 yesterday. BUN 43 from 38 yesterday. Cr 1.29 from 1.37 yesterday. Glucose 111 from 145 yesterday. Microbiology: Blood Cx: NGTD x 5 days. MRSA Screen: (-) RSV Panel: (-) Influenza A&B: (-) Imaging: No new imaging today. Assessment: This is a 71 yo F presenting for Healthcare Associated Pneumonia/ Possible Aspiration Pneumonia. Plan: HCAP/Aspiration Pneumonia: continue with IV antibiotics: Zosyn 3.375 gm q6h and vancomycin 750 mg IV q24h. Vanc Trough level therapeutic 3 days ago at 16.6. This is Day 7 of antibiotics. COPD: Supplemental oxygen to keep sats >88%-92%. Currently on 3 liters of O2 satting in 90s. Continue with respiratory therapy treatments: duonebs Rq6h nebulizers and q2h PRN, advair diskus 1 puff BID. Continue aggressive pulmonary toilet, incentive spirometry, and acapella. Will taper steroids and decrease prednisone PO 40 mg qdaily to 30 mg qdaily. Have added cepacol for sore throat and instructed nursing to use this today as it is ordered PRN. CKD with worsening Kidney Fx: BUN up today at 43 from 38 yesterday, but Cr improved at 1.29 from 1.37 yesterday. Continue current management with medication adjustments. Continue to monitor daily BMPs. Torsemide was discontinued 4 days ago. Encourage oral hydration. Atrial Fibrillation: Continue rate control with bisoprolol (zebeta) and rhythm control amiodarone. Not on anticoagulation. Left Lateral Leg Wound/L Lateral Malleolus Pressure Ulcer: Have ordered heel float boots and santyl to help debride L lateral leg wound. Hypothyroidism: continue synthroid 0.05 mg daily. Coronary Artery Disease: continue atorvastatin 40 mg QHS. Continue aspirin 81 mg daily. CVA with L-sided Hemiparesis: Stable. Continue aspirin 81 mg daily. Monitor clinically. Have encouraged nursing to get patient up and out of bed in chair to prevent further physical deconditioning. Also instructed to use haezl lift if necessary. Hx of CHF: on aldactone and bisoprolol (zebeta). Pulmonary Nodule: Follow up as outpatient. Continue home medications. DVT ppx: heparin 5000 units sc q6 hours Immunizations as per protocol. I have both independently examined this patient as well as reviewed documentation. I have discussed the findings in detail with Dr. Maguire the findings and plan of treatment as documented in the note. I will continue to follow the patient and offer further guidance to the patients care as necessary. VS,Fishbone, I+O VS, Fishbone, I+O Laboratory Tests 07/17/16 06:34 Calcium Level 8.1 L, Red Blood Count 3.82 L, Mean Corpuscular Volume 86.5, Mean Corpuscular Hemoglobin 27.2, Mean Corpuscular Hemoglobin Concent 31.5 L, Red Cell Distribution Width 15.3 H Vital Signs Date Time Temp Pulse Resp B/P Pulse Ox O2 Delivery O2 Flow Rate FiO2 07/17/16 09:45 18 92 Nasal Cannula 3.0 07/17/16 08:22 62 148/69 07/17/16 06:00 97.5 07/12/16 04:00 50 I&O- Last 24 Hours up to 6 AM 07/17/16 06:00 Intake Total 1260 ml Balance 1260 ml AMADEO MAGUIRE OGME-1 Jul 17, 2016 10:01 JASBIR CHILD MD Jul 19, 2016 15:01
--- NOTE | 2016-07-17 11:58 | PHACANCOPD ---
PHARMACY VANCOMYCIN DOSING Pt Demographics Demographics Patient Age:71 , Weight:112.600 , Gender: female Adjusted Body Weight Date: 07/11/16, Adjusted Body Weight: [76] Kg Vancomycin Vancomycin indication: HCAP Vancomycin Target Ranges: 15-20 mcg/ml Vancomycin Load Y/N: Yes Load Dose Date Time Vancomycin Load Dose: 1000mg IV q12h x2 doses Vancomycin Dose Date: 07/13/16. Current Vancomycin Dose: [750mg IV q24h @08] Intermittent Dosing?: No Labs Micro Microbiology 07/11/16 Blood Culture - Final, Complete NO GROWTH AFTER 5 DAYS 07/11/16 Blood Culture - Final, Complete NO GROWTH AFTER 5 DAYS 07/12/16 MRSA Screen - Final, Complete 07/11/16 Respiratory Virus Panel (PCR) ([facility]) - Final, Complete 07/11/16 Influenza Virus Type A Antigen - Final, Complete 07/11/16 Influenza Virus Type B Antigen - Final, Complete Creatinine Clearance Date:07/11/16. Creatinine Clearance: [44 ml/min using adjusted BW]. Date:07/14/16. Creatinine Clearance: [39 ml/min using ABW]. Assessment and Plan Maintaining Current Dose?: Yes Reason for dose change: No Dose Change Pharmacist Note Pharmacist Note 07/17/16: Day #7 empiric vancomycin and zosyn therapy for the treatment of HCAP/ Aspiration pneumonia for this patient admitted from [facility]. Scr improved at 1.29 from 1.37 yesterday and 1.41 at start of therapy, although BUN is slightly elevated today. WBC is mildly elevated today, and patient has been febrile within the past 24 hours. I have scheduled a follow-up trough level for 07/18/16@ 0700 to ensure adequate levels are being maintained. We will continue to monitor and make adjustments as needed. Date: 07/14/16. Pharmacist note: Vanco trough came back at 16.6. Patient will remain on Vancomycin 750mg Q24H. Blood specimens were negative x2. Patient's torsemide was discontinued on 07/13/16. Suggest drawing another trough after 3 more doses. Will continue to monitor renal function. Date: 07/11/16. Pharmacist note: pt is being treated for HCAP/aspiration pneumonia, she is currently an [facility] resident. pt was also previously on vancomycin here earlier this month. Her SCr is about at baseline, she has also been continued on her home dose of torsemide 60mg BID and received a dose of lasix in the ER. I will start with a gentle load of 1g IV q12h x2 doses, then start 750mg q24h. We will monitor renal function and order a trough as necessary. KELLY [facility]RADE [facility] Jul 17, 2016 11:58
[2016-07-17 14:00] VITALS: BP 131/61
[2016-07-17 22:00] VITALS: BP 125/60
[2016-07-17] MEDS: ATORVASTATIN 20 MG TAB PO SCH (22:03)
[2016-07-18] MEDS: SODIUM CHLORIDE 0.9% INJ 10 ML SYR IV PRN ×2 (00:09→04:41)
[2016-07-18] MEDS: CEPACOL LOZENGE PO PRN (00:26)
[2016-07-18] MEDS: IPRATROPIUM 0.5MG/ALBUTEROL 2.5MG INH SOL UD 3ML (DUONEB)(J7620) NEB SCH ×6 (02:04→23:21)
[2016-07-18] MEDS: PIPERACILLIN/TAZOBACTAM SOD 3.375 GM in D5W MINI-BAG PLUS 50 ML IV SCH (03:24)
[2016-07-18 06:00] VITALS: BP 129/63
[2016-07-18] MEDS: LEVOTHYROXINE 0.05 MG TAB (50 MCG) PO SCH (06:23)
[2016-07-18] MEDS: HEPARIN SOD (PORCINE) 5000 UNITS/ML VIAL SC SCH ×3 (06:24→21:12)
[2016-07-18] MEDS: SODIUM CHLORIDE 0.9% INJ 10 ML SYR IV SCH ×2 (06:25→17:58)
[2016-07-18 06:53] LABS: MEAN CORPUSCULAR HEMOGLOBIN 27.5 pg (27.0-33.0); MEAN CORPUSCULAR HGB CONC 31.5 g/dl (32.0-36.5); MEAN CORPUSCULAR VOLUME 87.2 fl (80.0-96.0); RED CELL DISTRIBUTION WIDTH 15.4 % (11.5-14.5); WHITE BLOOD COUNT 12.2 K/mm3 (4.0-10.0)
[2016-07-18 07:05] LABS: CALCIUM LEVEL 7.8 MG/DL (8.8-10.2); CREATININE FOR GFR 1.36 MG/DL (0.55-1.02); GLOMERULAR FILTRATION RATE 40.8 (>39); POTASSIUM SERUM 4.5 MEQ/L (3.5-5.1)
[2016-07-18] MEDS: ADVAIR DISKUS 500/50 INH PWD INH SCH ×2 (08:04→19:37)
[2016-07-18] MEDS: CLOPIDOGREL 75 MG TAB PO SCH (08:48)
[2016-07-18] MEDS: POTASSIUM CHLORIDE 10 MEQ SR TABLET PO SCH (08:48)
[2016-07-18] MEDS: ASPIRIN 81 MG ENTERIC TAB PO SCH (08:49)
[2016-07-18] MEDS: BISOPROLOL FUM 2.5 MG PER 1/2TAB PO SCH (08:49)
[2016-07-18] MEDS: FOLIC ACID 1 MG TAB PO SCH (08:49)
[2016-07-18] MEDS: predniSONE 10 MG TAB PO SCH (08:50)
[2016-07-18] MEDS: MULTIVITAMINS/MINERALS THERAP 1 TAB PO SCH (08:50)
[2016-07-18] MEDS: VITAMIN D 1,000 INTERNATIONAL UNITS TABLET PO SCH (08:50)
[2016-07-18] MEDS: SERTRALINE HCL 50 MG TAB PO SCH (09:00)
[2016-07-18] MEDS: AMIODARONE 200 MG TAB (PACERONE) PO SCH (09:00)
[2016-07-18] MEDS: BACLOFEN 5MG PER 1/2 TABLET PO SCH ×2 (09:00→21:13)
[2016-07-18] MEDS: SANTYL OINT 30GM TOP SCH ×2 (09:00→20:00)
[2016-07-18] MEDS: NORCO, ANEXSIA 5/325MG TABLET (HYDROcodone/ACETAMINOPHEN) PO SCH ×4 (09:00→21:14)
[2016-07-18] MEDS: NYSTATIN 100,000 UNITS/GM TOPICAL PWD 15 GM TOP SCH ×2 (09:00→21:16)
[2016-07-18] MEDS: SPIRONOLACTONE 12.5MG PER 1/2 TABLET PO SCH (09:00)
--- NOTE | 2016-07-18 09:06 | IPN ---
DATE: 07/18/2016 Ms. Sheridan is feeling well today. She is frustrated being in the hospital. She is watching a cooking show on TV with Ly Nino. We had a discussion about Ly Nino and Juan De La Rosa and their relationship. She feels ready to go home. She is somewhat frustrated about being in the hospital at all. Temperature is 97.9, pulse 59, respiratory rate 20, blood pressure 129/63, 95% on three liters. Intake and output notable for a positive fluid balance of 1620, two bowel movements noted yesterday, weight 113.4 kg, body mass index 41.6. She is awake, appropriately interactive, pleasantly conversant. Mood is improved from previous encounters. Mucous membranes are moist. Neck supple. Breathing symmetrical, rested. Heart is distant sounding. Abdomen is soft with active bowel sounds, nontender. White cell count 12.2, hemoglobin 10.3, platelets of 257. BUN 37, creatinine 1.37. ASSESSMENT: This is a 71-year-old with hospital-associated/aspiration pneumonia. PLAN: 1. Infectious disease. Patient has leukocytosis most likely related to steroids. I have discontinued IV antibiotics today. We will monitor today and most likely discharge tomorrow. 2. Chronic obstructive pulmonary disease (COPD). She is being weaned on steroids. She has history of COPD with nighttime requirement for oxygen. She is on oxygen now, will try to wean her daytime oxygen, which I believe will be successful. She does show evidence of some weight gain during this hospitalization. We know she has a normal left ventricular ejection fraction and normal diastolic dysfunction. She does not show much evidence of fluid overload on physical exam. She may benefit from Lasix in the setting of steroid use. 3. Atrial fibrillation. She is relatively regular on exam. She is not anticoagulated intentionally. 4. Left lateral leg and malleolus pressure ulcer. Continue with care as prescribed by Dr. Dugan previously. 5. Hypothyroidism. 6. Coronary artery disease. Continue aspirin and atorvastatin. 7. Remote history of cerebrovascular accident (CVA) with left-sided hemiparesis. 8. Pulmonary nodule. Will require outpatient followup. 9. Appropriate deep vein thrombosis (DVT) prophylaxis.
[2016-07-18 14:00] VITALS: BP 133/62
[2016-07-18] MEDS: ATORVASTATIN 20 MG TAB PO SCH (21:13)
[2016-07-18 22:00] VITALS: BP 120/82
[2016-07-19] MEDS: CEPACOL LOZENGE PO PRN (01:02)
[2016-07-19] MEDS: LEVOTHYROXINE 0.05 MG TAB (50 MCG) PO SCH (05:40)
[2016-07-19] MEDS: SODIUM CHLORIDE 0.9% INJ 10 ML SYR IV SCH (05:41)
[2016-07-19] MEDS: HEPARIN SOD (PORCINE) 5000 UNITS/ML VIAL SC SCH (05:41)
[2016-07-19 06:00] VITALS: BP 123/68
[2016-07-19] MEDS: ADVAIR DISKUS 500/50 INH PWD INH SCH (07:21)
[2016-07-19] MEDS: IPRATROPIUM 0.5MG/ALBUTEROL 2.5MG INH SOL UD 3ML (DUONEB)(J7620) NEB SCH (07:22)
[2016-07-19] MEDS ORDERED: PRED10TA PO (08:15)
[2016-07-19] MEDS: CLOPIDOGREL 75 MG TAB PO SCH (08:26)
[2016-07-19] MEDS: predniSONE 10 MG TAB PO SCH (08:26)
[2016-07-19] MEDS: FOLIC ACID 1 MG TAB PO SCH (08:26)
[2016-07-19] MEDS: BACLOFEN 5MG PER 1/2 TABLET PO SCH (08:26)
[2016-07-19] MEDS: AMIODARONE 200 MG TAB (PACERONE) PO SCH (08:26)
[2016-07-19] MEDS: VITAMIN D 1,000 INTERNATIONAL UNITS TABLET PO SCH (08:27)
[2016-07-19] MEDS: SERTRALINE HCL 50 MG TAB PO SCH (08:27)
[2016-07-19] MEDS: MULTIVITAMINS/MINERALS THERAP 1 TAB PO SCH (08:27)
[2016-07-19] MEDS: ASPIRIN 81 MG ENTERIC TAB PO SCH (08:27)
[2016-07-19 08:28] VITALS: BP 123/68
[2016-07-19] MEDS: BISOPROLOL FUM 2.5 MG PER 1/2TAB PO SCH (08:28)
[2016-07-19] MEDS: POTASSIUM CHLORIDE 10 MEQ SR TABLET PO SCH (08:28)
[2016-07-19] MEDS: SPIRONOLACTONE 12.5MG PER 1/2 TABLET PO SCH (08:28)
[2016-07-19] MEDS: NORCO, ANEXSIA 5/325MG TABLET (HYDROcodone/ACETAMINOPHEN) PO SCH (08:29)
[2016-07-19] MEDS: NYSTATIN 100,000 UNITS/GM TOPICAL PWD 15 GM TOP SCH (08:34)
--- NOTE | 2016-07-19 20:49 | DSES ---
DATE OF ADMISSION: 07/11/2016 DATE OF DISCHARGE: 07/19/2016 DISCHARGE DIAGNOSES: 1. Aspiration pneumonia. 2. Healthcare-associated pneumonia. 3. Chronic obstructive pulmonary disease (COPD). 4. Chronic kidney disease with acute kidney injury. 5. Atrial fibrillation. 6. Chronic left lateral leg wound and left lateral malleolus pressure ulcer. 7. Hypothyroidism. 8. Coronary artery disease. 9. History of CVA with left-sided hemiparesis. 10. Pulmonary nodule. 11. Depression. No specialists involved in her care. No complications of her stay. The following is a summary of her hospitalization: This is a 71-year-old who presented with shortness of breath and cough. No evidence of pulmonary emboli on CTA. Was treated for aspiration and/or healthcare-associated pneumonia with broad-spectrum antibiotics. Showed slow improvement. Was maintained in the hospital for a full course of antibiotics and monitored off antibiotics over this weekend. Did well during the course of her stay, has been tolerating a diet and has returned to her baseline level of functioning and is ready to go home. Of note, patient did seem somewhat depressed during her stay and this will need to be monitored in the outpatient setting and considered for treatment as deemed clinically appropriate. On the day of discharge: Temperature is 96.3, pulse 50, respiratory rate 17, blood pressure 123/68, 92% on 3 liters nasal cannula. Intake and output notable for a positive fluid balance of 1320. Body mass index 42.3. She is awake, appropriately interactive, seems pleasantly encouraged by going home today. She tolerated a good breakfast. Mucous membranes are moist. Neck supple. Breathing is symmetrical, rested. Heart is distant sounding, normal S1, S2. Abdomen soft, doughy, nontender. White cell count is (cut off), presumably from steroid use. Creatinine is 1.36. DISCHARGE INSTRUCTIONS: Are as follows: Followup with [facility] per their protocol, hopefully this week. Continue home diet. Activity as tolerated. MEDICATIONS: Include: - prednisone tapering dose as written - Tylenol 325 mg every 4 hours as needed for pain - Cinebar half a tablet by mouth four times daily - albuterol 2.5 mg every 3 hours as needed for shortness of breath - amiodarone 200 mg by mouth daily - aspirin 81 mg by mouth daily - atorvastatin 40 mg by mouth daily at bedtime - baclofen 5 mg by mouth twice daily - Zebeta 2.5 mg by mouth daily - vitamin D 2000 units by mouth daily - Plavix 75 mg by mouth daily - folic acid 1 mg by mouth daily - Incruse Ellipta 62.5 inhaled at bedtime - Synthroid 50 mcg by mouth daily - milk of magnesia by mouth daily as needed for constipation - multivitamin tablet daily - potassium chloride 20 mEq by mouth daily - fluticasone 500 - Senna one tablet by mouth daily as needed for constipation - Zoloft 50 mg by mouth daily - spironolactone 12.5 mg by mouth daily - torsemide 60 mg by mouth twice daily Continue current wound care. Oxygen 3 liters by nasal cannula.
== END 2016-07-19 10:10 | DRG 177 ==
LOC: EDBD 07:55 → M ED 10:11 → M ED INP 14:15 → M PCU 17:38 → M MS5PR 07-15 13:09
PROVIDERS: ADMIT Internal Medicine; ATTEND Internal Medicine
PROC: 05HB33Z Insertion of Infusion Device into Right Basilic Vein, Percutaneous Approach (ICD-10-PCS; principal; 2016-07-12)
DX: J69.0 Pneumonitis due to inhalation of food and vomit (principal); J96.01 Acute respiratory failure with hypoxia; I69.354 Hemiplegia and hemiparesis following cerebral infarction affecting left non-dominant side; I50.32 Chronic diastolic (congestive) heart failure; J44.1 Chronic obstructive pulmonary disease with (acute) exacerbation; Z68.41 Body mass index [BMI] 40.0-44.9, adult; E03.9 Hypothyroidism, unspecified; F32.9 Major depressive disorder, single episode, unspecified; N18.3 Chronic kidney disease, stage 3 (moderate); I25.10 Atherosclerotic heart disease of native coronary artery without angina pectoris; I48.2 Chronic atrial fibrillation; Z66 Do not resuscitate; F41.9 Anxiety disorder, unspecified; R13.10 Dysphagia, unspecified; E66.01 Morbid (severe) obesity due to excess calories; L89.521 Pressure ulcer of left ankle, stage 1; E78.5 Hyperlipidemia, unspecified; R91.1 Solitary pulmonary nodule; Z99.81 Dependence on supplemental oxygen; Z79.82 Long term (current) use of aspirin; Z88.8 Allergy status to other drugs, medicaments and biological substances; Z91.013 Allergy to seafood; Z79.02 Long term (current) use of antithrombotics/antiplatelets; Z87.891 Personal history of nicotine dependence

== ENCOUNTER → 2016-07-27 | Outpatient (REF) ==
[~2016-07-27] MED LIST changes: +AMIO400T PO; +HYDR-3713 PO; +INCR1INH INH; +LORT5TAB PO; +MULT1TAB10 PO; +PRED10TA PO; +TYLE325T5 PO; +VITA200015 PO
[2016-07-27 12:03] LABS: MEAN CORPUSCULAR HEMOGLOBIN 27.1 pg (27.0-33.0); MEAN CORPUSCULAR HGB CONC 31.3 g/dl (32.0-36.5); MEAN CORPUSCULAR VOLUME 86.4 fl (80.0-96.0); RED CELL DISTRIBUTION WIDTH 15.7 % (11.5-14.5); WHITE BLOOD COUNT 17.7 K/mm3 (4.0-10.0)
[2016-07-27 12:35] LABS: CALCIUM LEVEL 8.5 MG/DL (8.8-10.2); CREATININE FOR GFR 1.49 MG/DL (0.55-1.02); GLOMERULAR FILTRATION RATE 36.7 (>39); POTASSIUM SERUM 4.5 MEQ/L (3.5-5.1)
== END ==
PROVIDERS: ATTEND Internal Medicine
DX: J18.9 Pneumonia, unspecified organism (principal)

== ENCOUNTER → 2016-07-29 | Outpatient (REF) | payer MEDICAID, MEDICARE ==
[2016-07-29 14:48] LABS: MEAN CORPUSCULAR HEMOGLOBIN 27.5 pg (27.0-33.0); MEAN CORPUSCULAR HGB CONC 31.7 g/dl (32.0-36.5); MEAN CORPUSCULAR VOLUME 86.6 fl (80.0-96.0); RED CELL DISTRIBUTION WIDTH 15.8 % (11.5-14.5); WHITE BLOOD COUNT 13.4 K/mm3 (4.0-10.0)
== END ==
PROVIDERS: ATTEND Internal Medicine
DX: J44.9 Chronic obstructive pulmonary disease, unspecified (principal); I50.9 Heart failure, unspecified

== ENCOUNTER → 2016-08-17 | Outpatient (REF) | payer MEDICARE, MEDICAID ==
[2016-08-17 11:12] LABS: MEAN CORPUSCULAR HEMOGLOBIN 27.9 pg (27.0-33.0); MEAN CORPUSCULAR HGB CONC 32.3 g/dl (32.0-36.5); MEAN CORPUSCULAR VOLUME 86.5 fl (80.0-96.0); RED CELL DISTRIBUTION WIDTH 15.6 % (11.5-14.5); WHITE BLOOD COUNT 10.1 K/mm3 (4.0-10.0)
[2016-08-17 12:02] LABS: CALCIUM LEVEL 8.5 MG/DL (8.8-10.2); CREATININE FOR GFR 1.32 MG/DL (0.55-1.02); GLOMERULAR FILTRATION RATE 42.2 (>39); POTASSIUM SERUM 4.1 MEQ/L (3.5-5.1)
== END ==
PROVIDERS: ATTEND Internal Medicine
DX: J18.9 Pneumonia, unspecified organism (principal)

== ENCOUNTER → 2016-09-01 | Outpatient (REF) ==
--- NOTE | 2016-09-01 16:28 | REP ---
Clinical: Wheezing. Rule out aspiration pneumonia. Comparison: 07/11/2016. Findings: Evaluation is limited by portable technique and underpenetration. Diffuse chronic interstitial changes are similar to prior examination. Left lower lobe/retrocardiac infiltrate cannot be excluded. No definite effusion. No pneumothorax. Impression: Limited portable examination. Chronic stable changes. Cannot exclude continued superimposed left lower lobe/retrocardiac infiltrate. Signed by Erasmo Patrick MD 09/01/2016 04:20 P
[2016-09-01 19:07] LABS: CREATININE FOR GFR 1.28 MG/DL (0.55-1.02); GLOMERULAR FILTRATION RATE 43.8 (>39); POTASSIUM SERUM 4.3 MEQ/L (3.5-5.1)
[2016-09-01 19:21] LABS: MEAN CORPUSCULAR HEMOGLOBIN 27.8 pg (27.0-33.0); MEAN CORPUSCULAR HGB CONC 31.1 g/dl (32.0-36.5); MEAN CORPUSCULAR VOLUME 89.5 fl (80.0-96.0); RED CELL DISTRIBUTION WIDTH 16.2 % (11.5-14.5); WHITE BLOOD COUNT 10.9 K/mm3 (4.0-10.0)
== END ==
PROVIDERS: ATTEND Internal Medicine
DX: R06.2 Wheezing (principal)

== ENCOUNTER → 2016-09-10 | Outpatient (REF) ==
[2016-09-10 10:14] LABS: MEAN CORPUSCULAR HEMOGLOBIN 27.3 pg (27.0-33.0); MEAN CORPUSCULAR HGB CONC 31.5 g/dl (32.0-36.5); MEAN CORPUSCULAR VOLUME 86.7 fl (80.0-96.0); WHITE BLOOD COUNT 10.3 K/mm3 (4.0-10.0)
[2016-09-10 10:33] LABS: CALCIUM LEVEL 8.2 MG/DL (8.8-10.2); CREATININE FOR GFR 1.18 MG/DL (0.55-1.02); GLOMERULAR FILTRATION RATE 48.1 (>39); POTASSIUM SERUM 3.5 MEQ/L (3.5-5.1)
== END ==
PROVIDERS: ATTEND Internal Medicine
DX: J18.9 Pneumonia, unspecified organism (principal); I50.9 Heart failure, unspecified

== ENCOUNTER → 2016-09-14 | Outpatient (REF) ==
--- NOTE | 2016-09-14 09:48 | REP ---
Chest one-view HISTORY: Pneumonia Comparison: 09/01/2016 The lungs are clear. The heart is normal in size. The pulmonary vasculature is normal in appearance. Impression: No acute disease. Signed by Gabriel Villatoro MD 09/14/2016 09:40 A
== END ==
PROVIDERS: ATTEND Internal Medicine
DX: J18.9 Pneumonia, unspecified organism (principal)

== ENCOUNTER → 2016-09-21 | Outpatient (REF) | payer MEDICAID, MEDICARE ==
[2016-09-21 11:26] LABS: MEAN CORPUSCULAR HEMOGLOBIN 27.8 pg (27.0-33.0); WHITE BLOOD COUNT 10.5 K/mm3 (4.0-10.0)
[2016-09-21 11:45] LABS: ALBUMIN 2.4 GM/DL (3.2-5.2); ALBUMIN/GLOBULIN RATIO 0.75 (1.00-1.93); BILIRUBIN,DIRECT 0.3 MG/DL (0.0-0.2); BILIRUBIN,TOTAL 0.9 MG/DL (0.2-1.0); CALCIUM LEVEL 8.2 MG/DL (8.8-10.2); CREATININE FOR GFR 1.07 MG/DL (0.55-1.02); GLOMERULAR FILTRATION RATE 53.8 (>39); POTASSIUM SERUM 3.7 MEQ/L (3.5-5.1); TOTAL PROTEIN 5.6 GM/DL (6.4-8.2)
== END ==
PROVIDERS: ATTEND Internal Medicine
DX: N18.9 Chronic kidney disease, unspecified (principal); I50.9 Heart failure, unspecified

== ENCOUNTER → 2016-09-23 | Outpatient (REF) | payer MEDICAID, MEDICARE ==
[~2016-09-23] MED LIST changes: -ACET-654 PO; +ACET-683 PO; +ACET1TAB17 PO; -ACET500T37 PO; +AMIO200T PO; -ATOR40TA PO; +ATOR40TA75 PO; +BACL10TA5 PO; -BACL5TA PO; -FOLI1TAB2 PO; +FOLI1TAB4 PO; +PLAV1TAB2 PO; -PLAV75TA38 PO; -PRED10TA PO; +PRED10TA2 PO; +SENN1TAB10 PO; -SENN8.6T10 PO
--- NOTE | 2016-09-23 14:42 | REP ---
Left upper extremity duplex venous ultrasound: History: Question DVT left arm. Findings: The left internal jugular, axillary, brachial, basilic, and cephalic veins are anechoic and compressible in the left upper extremity. Color flow imaging is homogeneous. Spectral Doppler interrogation is unremarkable. There is no evidence of left upper extremity venous thrombosis. Impression: Negative left upper extremity duplex venous ultrasound. No evidence of venous thrombosis. Signed by Donta Thakkra MD 09/23/2016 02:32 P
== END ==
LOC: M RAD 12:00 → EDSTATUS 13:30
PROVIDERS: ATTEND Physician Assistant
DX: R60.0 Localized edema (principal)

== ENCOUNTER → 2016-09-29 | Outpatient (CLI) | payer MEDICARE, MEDICAID ==
[~2016-09-29] MED LIST changes: +ACET-654 PO; -ACET-683 PO; -ACET1TAB17 PO; +ACET500T37 PO; -AMIO200T PO; +ATOR40TA PO; -ATOR40TA75 PO; -BACL10TA5 PO; +BACL5TA PO; +FOLI1TAB2 PO; -FOLI1TAB4 PO; +ISOVUE-370 76% 100ML VIAL (Q9967) As Ordered ONE; -PLAV1TAB2 PO; +PLAV75TA38 PO; +PRED10TA PO; -PRED10TA2 PO; -SENN1TAB10 PO; +SENN8.6T10 PO
--- NOTE | 2016-09-29 11:33 | REP ---
CT of the chest with IV contrast: Comparisons are 06/17/1926 teen and 07/11/2016. 06/17/2016 there was a 7 mm peribronchiolar 7 mm nodule in the right upper lobe on image 34. This nodule was no longer present on 07/11/2016 and is no longer present on the study today, suggesting that this was likely focal atelectasis that has resolved. On 06/17/2016 there is a subsegmental infiltrate posteriorly in the right lower lobe. This had resolved on 07/11/2016.There is a small subsegmental infiltrate posterior in the right lower lobe today. On 07/11/2016 there was an infiltrate in the left lower lobe. This infiltrate has almost entirely resolved on the study today. There is residual linear stranding in this location of the left lower lobe. There are no other infiltrates. No pleural effusions. There are no other masses or nodules. There is no mediastinal or hilar adenopathy. There is no axillary adenopathy. The thoracic aorta is unremarkable. Cardiac size is normal. There is no pericardial effusion. Upper abdomen: Multiple confluent gallbladder calculi are again identified, not significantly changed. There is no biliary duct dilatation. The hepatic parenchyma, pancreas, spleen, adrenals and renal upper poles are unremarkable except for renal cortical cysts. Impression: The right upper lobe lung nodule identified on 06/17/2016 is no longer present, compatible with transient atelectasis. There is a right lower lobe infiltrate as described. The left lower lobe infiltrate noted on 07/11/2016 has almost entirely resolved. No adenopathy. Cholelithiasis, unchanged. Signed by Rey Hall MD 09/29/2016 11:25 A
== END ==
LOC: M RAD 10:27
PROVIDERS: ATTEND Physician Assistant
DX: R91.1 Solitary pulmonary nodule (principal)
CPT/HCPCS: 71260; Q9967

== ENCOUNTER → 2016-10-01 | Outpatient (REF) | payer MEDICARE, MEDICAID ==
[~2016-10-01] MED LIST changes: -ACET-654 PO; +ACET-683 PO; +ACET1TAB17 PO; -ACET500T37 PO; +AMIO200T PO; -ATOR40TA PO; +ATOR40TA75 PO; +BACL10TA5 PO; -BACL5TA PO; -FOLI1TAB2 PO; +FOLI1TAB4 PO; -ISOVUE-370 76% 100ML VIAL (Q9967) As Ordered ONE; +PLAV1TAB2 PO; -PLAV75TA38 PO; -PRED10TA PO; +PRED10TA2 PO; +SENN1TAB10 PO; -SENN8.6T10 PO
[2016-10-01 12:54] LABS: MEAN CORPUSCULAR HEMOGLOBIN 27.8 pg (27.0-33.0); MEAN CORPUSCULAR HGB CONC 32.4 g/dl (32.0-36.5); MEAN CORPUSCULAR VOLUME 85.8 fl (80.0-96.0); RED CELL DISTRIBUTION WIDTH 15.8 % (11.5-14.5); WHITE BLOOD COUNT 8.5 K/mm3 (4.0-10.0)
[2016-10-01 13:20] LABS: CALCIUM LEVEL 8.2 MG/DL (8.8-10.2); CREATININE FOR GFR 1.49 MG/DL (0.55-1.02); GLOMERULAR FILTRATION RATE 36.7 (>39); POTASSIUM SERUM 4.4 MEQ/L (3.5-5.1)
== END ==
PROVIDERS: ATTEND Internal Medicine
DX: J69.0 Pneumonitis due to inhalation of food and vomit (principal)

== ENCOUNTER → 2016-10-13 | Outpatient (REF) ==
--- NOTE | 2016-10-13 11:44 | REP ---
Clinical: Follow up infiltrate/nodule. Technique: AP and lateral. Comparison: 09/14/2016. Findings: Mediastinum and cardiac silhouette are within normal limits and stable. Lung joyner demonstrate chronic interstitial changes. No nodular density identified. Subtle basilar atelectasis cannot be excluded. No obvious effusion. No pneumothorax. Skeletal structures intact. Impression: No lung nodule. Cannot exclude trace basilar atelectasis. Signed by Erasmo Patrick MD 10/13/2016 11:36 A
== END ==
PROVIDERS: ATTEND Internal Medicine
DX: R91.8 Other nonspecific abnormal finding of lung field (principal)

== ENCOUNTER → 2016-10-22 | Outpatient (REF) ==
--- NOTE | 2016-10-22 16:03 | REP ---
Clinical: Aspiration pneumonia. Comparison: 10/13/2016. Findings: Examination is limited by portable technique and positioning. Visualized portions of the mediastinum and cardiac silhouette appear stable and normal. The visualized lung joyner are clear. Left rib fracture of indeterminate age cannot be excluded. Impression: No obvious acute cardiopulmonary process appreciated. Cannot exclude left rib fractures of indeterminate age. Signed by Erasmo Patrick MD 10/22/2016 03:54 P
[2016-10-22 18:26] LABS: MEAN CORPUSCULAR HEMOGLOBIN 27.8 pg (27.0-33.0); MEAN CORPUSCULAR HGB CONC 31.7 g/dl (32.0-36.5); MEAN CORPUSCULAR VOLUME 87.7 fl (80.0-96.0); RED CELL DISTRIBUTION WIDTH 15.7 % (11.5-14.5); WHITE BLOOD COUNT 16.6 K/mm3 (4.0-10.0)
== END ==
PROVIDERS: ATTEND Internal Medicine
DX: J44.9 Chronic obstructive pulmonary disease, unspecified (principal); J69.0 Pneumonitis due to inhalation of food and vomit

== ENCOUNTER → 2016-12-09 | Outpatient (CLI) | payer MEDICARE, MEDICAID ==
--- NOTE | 2016-12-09 13:11 | REP ---
Left upper extremity duplex venous ultrasound: History: Question venous thrombosis. Left upper extremity pain and edema. Findings: The left internal jugular, axillary, brachial, basilic, and cephalic veins are anechoic and compressible in the left upper extremity. Color flow imaging is homogeneous. Spectral Doppler interrogation is unremarkable. There is no evidence of left upper extremity venous thrombosis. Impression: Negative left upper extremity duplex venous ultrasound. No evidence of venous thrombosis. Signed by Donta Thakkar MD 12/09/2016 01:02 P
== END ==
LOC: M RAD 12:17
PROVIDERS: ATTEND Physician Assistant
DX: R60.0 Localized edema (principal); M79.605 Pain in left leg

== ENCOUNTER → 2016-12-14 | Outpatient (REF) ==
[2016-12-14 11:02] LABS: CALCIUM LEVEL 9.2 MG/DL (8.8-10.2); CREATININE FOR GFR 1.42 MG/DL (0.55-1.02); GLOMERULAR FILTRATION RATE 38.8 (>39); POTASSIUM SERUM 3.4 MEQ/L (3.5-5.1)
== END ==
PROVIDERS: ATTEND Internal Medicine
DX: N18.9 Chronic kidney disease, unspecified (principal)

== ENCOUNTER → 2016-12-21 | Outpatient (REF) | payer MEDICARE, MEDICAID ==
[2016-12-21 11:44] LABS: CALCIUM LEVEL 8.7 MG/DL (8.8-10.2); CREATININE FOR GFR 1.39 MG/DL (0.55-1.02); GLOMERULAR FILTRATION RATE 39.8 (>39); POTASSIUM SERUM 4.1 MEQ/L (3.5-5.1)
[2016-12-21 12:31] LABS: MEAN CORPUSCULAR HEMOGLOBIN 27.9 pg (27.0-33.0); MEAN CORPUSCULAR HGB CONC 32.8 g/dl (32.0-36.5); MEAN CORPUSCULAR VOLUME 85.1 fl (80.0-96.0); RED CELL DISTRIBUTION WIDTH 15.5 % (11.5-14.5); WHITE BLOOD COUNT 8.5 K/mm3 (4.0-10.0)
== END ==
PROVIDERS: ATTEND Internal Medicine
DX: E55.9 Vitamin D deficiency, unspecified (principal); J18.9 Pneumonia, unspecified organism

== ENCOUNTER → 2016-12-28 | Outpatient (REF) | payer MEDICARE, MEDICAID ==
[2016-12-28 11:21] LABS: CREATININE FOR GFR 1.19 MG/DL (0.55-1.02); GLOMERULAR FILTRATION RATE 47.6 (>39); POTASSIUM SERUM 4.2 MEQ/L (3.5-5.1)
== END ==
PROVIDERS: ATTEND Internal Medicine
DX: E87.6 Hypokalemia (principal)

== ENCOUNTER → 2017-01-18 | Outpatient (REF) | payer MEDICARE, MEDICAID ==
[2017-01-18 11:25] LABS: MEAN CORPUSCULAR HEMOGLOBIN 26.6 pg (27.0-33.0); MEAN CORPUSCULAR HGB CONC 30.2 g/dl (32.0-36.5); MEAN CORPUSCULAR VOLUME 88.1 fl (80.0-96.0); RED CELL DISTRIBUTION WIDTH 16.5 % (11.5-14.5); WHITE BLOOD COUNT 11.3 10^3/uL (4.0-10.0)
[2017-01-18 11:49] LABS: CREATININE FOR GFR 1.14 MG/DL (0.55-1.02)
== END ==
PROVIDERS: ATTEND Internal Medicine
DX: N18.9 Chronic kidney disease, unspecified (principal); E87.6 Hypokalemia

== ENCOUNTER → 2017-02-01 | Outpatient (REF) | payer MEDICARE, MEDICAID ==
[2017-02-01 12:18] LABS: MEAN CORPUSCULAR HEMOGLOBIN 26.5 pg (27.0-33.0); MEAN CORPUSCULAR VOLUME 85.4 fl (80.0-96.0); WHITE BLOOD COUNT 9.1 10^3/uL (4.0-10.0)
[2017-02-01 14:05] LABS: CALCIUM LEVEL 8.5 MG/DL (8.8-10.2); CREATININE FOR GFR 1.5 MG/DL (0.55-1.02); GLOMERULAR FILTRATION RATE 36.4 (>39); POTASSIUM SERUM 3.7 MEQ/L (3.5-5.1)
== END ==
PROVIDERS: ATTEND Internal Medicine
DX: R60.9 Edema, unspecified (principal)

== ENCOUNTER → 2017-03-01 | Outpatient (REF) | payer MEDICARE, MEDICAID ==
[2017-03-01 11:17] LABS: ALBUMIN 2.6 GM/DL (3.2-5.2); CALCIUM LEVEL 8.2 MG/DL (8.8-10.2); CREATININE FOR GFR 1.3 MG/DL (0.55-1.02); PHOSPHORUS LEVEL 3.6 MG/DL (2.5-4.9); POTASSIUM SERUM 3.7 MEQ/L (3.5-5.1)
== END ==
PROVIDERS: ATTEND Internal Medicine
DX: I50.9 Heart failure, unspecified (principal)

== ENCOUNTER → 2017-03-14 | Outpatient (REF) | payer MEDICARE, MEDICAID ==
[2017-03-14 14:54] LABS: CALCIUM LEVEL 8.6 MG/DL (8.8-10.2); CREATININE FOR GFR 1.72 MG/DL (0.55-1.02); GLOMERULAR FILTRATION RATE 31.1 (>39); POTASSIUM SERUM 3.6 MEQ/L (3.5-5.1)
== END ==
PROVIDERS: ATTEND Internal Medicine
DX: I50.9 Heart failure, unspecified (principal)

== ENCOUNTER → 2017-03-22 | Outpatient (REF) | payer MEDICARE, MEDICAID ==
[2017-03-22 11:21] LABS: MEAN CORPUSCULAR HEMOGLOBIN 26.4 pg (27.0-33.0); MEAN CORPUSCULAR HGB CONC 31.1 g/dl (32.0-36.5); PLATELET COUNT, AUTOMATED 377 10^3/uL (150-450); RED CELL DISTRIBUTION WIDTH 16.1 % (11.5-14.5); WHITE BLOOD COUNT 11.1 10^3/uL (4.0-10.0)
[2017-03-22 11:56] LABS: ALBUMIN 2.6 GM/DL (3.2-5.2); ALBUMIN/GLOBULIN RATIO 0.74 (1.00-1.93); BILIRUBIN,DIRECT 0.1 MG/DL (0.0-0.2); BILIRUBIN,TOTAL 0.7 MG/DL (0.2-1.0); CALCIUM LEVEL 8.4 MG/DL (8.8-10.2); CREATININE FOR GFR 1.49 MG/DL (0.55-1.02); GLOMERULAR FILTRATION RATE 36.7 (>39); POTASSIUM SERUM 3.9 MEQ/L (3.5-5.1); TOTAL PROTEIN 6.1 GM/DL (6.4-8.2)
== END ==
PROVIDERS: ATTEND Internal Medicine
DX: N18.9 Chronic kidney disease, unspecified (principal)

== ENCOUNTER → 2017-04-28 | Outpatient (CLI) | payer MEDICARE, MEDICAID | LOC: M RAD 16:07 | DX: M79.662 Pain in left lower leg (principal) | CPT/HCPCS: 93971 ==

== ENCOUNTER → 2017-04-29 | Outpatient (REF) | payer MEDICARE, MEDICAID ==
[2017-04-29 13:47] LABS: HEMATOCRIT 37.5 % (36.0-47.0); HEMOGLOBIN 11.5 g/dl (12.0-16.0); MEAN CORPUSCULAR HEMOGLOBIN 25.9 pg (27.0-33.0); MEAN CORPUSCULAR HGB CONC 30.7 g/dl (32.0-36.5); MEAN CORPUSCULAR VOLUME 84.5 fl (80.0-96.0); PLATELET COUNT, AUTOMATED 435 10^3/uL (150-450); RED BLOOD COUNT 4.44 10^6/uL (4.00-5.40); RED CELL DISTRIBUTION WIDTH 17.3 % (11.5-14.5); WHITE BLOOD COUNT 13.8 10^3/uL (4.0-10.0)
[2017-04-29 14:22] LABS: ANION GAP 14 MEQ/L (8-16); BLOOD UREA NITROGEN 28 MG/DL (7-18); CALCIUM LEVEL 8.2 MG/DL (8.8-10.2); CARBON DIOXIDE LEVEL 30 MEQ/L (21-32); CHLORIDE LEVEL 92 MEQ/L (98-107); GLOMERULAR FILTRATION RATE 21.1 (>39); GLUCOSE, FASTING 123 MG/DL (83-110); POTASSIUM SERUM 3.7 MEQ/L (3.5-5.1); SODIUM LEVEL 136 MEQ/L (136-145)
== END ==
DX: L03.90 Cellulitis, unspecified (principal)
CPT/HCPCS: 80048

== ENCOUNTER → 2017-06-09 | Outpatient (CLI) | payer MEDICARE, MEDICAID | LOC: M RAD 14:23 | DX: R22.32 Localized swelling, mass and lump, left upper limb (principal) | CPT/HCPCS: 93971 ==

== ENCOUNTER 2017-08-11 07:54 | Outpatient (REF) | payer MEDICARE, MEDICAID ==
[2017-08-30 10:07] LABS: ALBUMIN 2.7 GM/DL (3.2-5.2); ANION GAP 9 MEQ/L (8-16); BLOOD UREA NITROGEN 43 MG/DL (7-18); CALCIUM LEVEL 8.6 MG/DL (8.8-10.2); CARBON DIOXIDE LEVEL 26 MEQ/L (21-32); CHLORIDE LEVEL 100 MEQ/L (98-107); GLOMERULAR FILTRATION RATE 29.4 (>39); GLUCOSE, FASTING 230 MG/DL (70-100); MAGNESIUM LEVEL 2.4 MG/DL (1.8-2.4); PHOSPHORUS LEVEL 3.9 MG/DL (2.5-4.9); POTASSIUM SERUM 3.8 MEQ/L (3.5-5.1); SODIUM LEVEL 135 MEQ/L (136-145)
== END 2017-08-30 ==
DX: I50.9 Heart failure, unspecified (principal)
CPT/HCPCS: 83735

== ENCOUNTER → 2017-08-19 | Outpatient (REF) | payer MEDICARE, MEDICAID ==
[2017-08-19 10:36] LABS: ANION GAP 10 MEQ/L (8-16); BLOOD UREA NITROGEN 22 MG/DL (7-18); CALCIUM LEVEL 8.6 MG/DL (8.8-10.2); CARBON DIOXIDE LEVEL 33 MEQ/L (21-32); CHLORIDE LEVEL 99 MEQ/L (98-107); CREATININE FOR GFR 1.64 MG/DL (0.55-1.30); GLOMERULAR FILTRATION RATE 32.8 (>39); GLUCOSE, FASTING 143 MG/DL (70-100); NT-PRO BNP 520 PG/ML (<125); POTASSIUM SERUM 3.5 MEQ/L (3.5-5.1); SODIUM LEVEL 142 MEQ/L (136-145)
== END ==
DX: I50.9 Heart failure, unspecified (principal)
CPT/HCPCS: 80048

== ENCOUNTER → 2017-08-23 | Outpatient (REF) | payer MEDICARE, MEDICAID ==
[2017-08-23 09:55] LABS: ANION GAP 10 MEQ/L (8-16); BLOOD UREA NITROGEN 34 MG/DL (7-18); CALCIUM LEVEL 8.4 MG/DL (8.8-10.2); CARBON DIOXIDE LEVEL 34 MEQ/L (21-32); CHLORIDE LEVEL 97 MEQ/L (98-107); CREATININE FOR GFR 1.68 MG/DL (0.55-1.30); GLOMERULAR FILTRATION RATE 31.9 (>39); GLUCOSE, FASTING 144 MG/DL (70-100); NT-PRO BNP 642 PG/ML (<125); POTASSIUM SERUM 3.4 MEQ/L (3.5-5.1); SODIUM LEVEL 141 MEQ/L (136-145)
== END ==
DX: I50.9 Heart failure, unspecified (principal)
CPT/HCPCS: 80048

== ENCOUNTER → 2017-09-06 | Outpatient (REF) | payer MEDICARE, MEDICAID ==
[2017-09-06 12:31] LABS: ANION GAP 11 MEQ/L (8-16); BLOOD UREA NITROGEN 24 MG/DL (7-18); CALCIUM LEVEL 8.3 MG/DL (8.8-10.2); CARBON DIOXIDE LEVEL 27 MEQ/L (21-32); CHLORIDE LEVEL 101 MEQ/L (98-107); CREATININE FOR GFR 1.72 MG/DL (0.55-1.30); GLUCOSE, FASTING 209 MG/DL (70-100); POTASSIUM SERUM 4.7 MEQ/L (3.5-5.1); SODIUM LEVEL 139 MEQ/L (136-145)
== END ==
DX: I50.9 Heart failure, unspecified (principal)
CPT/HCPCS: 80048

== ENCOUNTER → 2017-09-23 | Outpatient (REF) | payer MEDICARE, MEDICAID ==
[2017-09-23 11:00] LABS: HEMATOCRIT 35.5 % (36.0-47.0); HEMOGLOBIN 10.7 g/dl (12.0-15.5); MEAN CORPUSCULAR HEMOGLOBIN 27.3 pg (27.0-33.0); MEAN CORPUSCULAR HGB CONC 30.1 g/dl (32.0-36.5); MEAN CORPUSCULAR VOLUME 90.6 fl (80.0-96.0); PLATELET COUNT, AUTOMATED 335 10^3/uL (150-450); RED BLOOD COUNT 3.92 10^6/uL (4.00-5.40); WHITE BLOOD COUNT 7.9 10^3/uL (4.0-10.0)
[2017-09-23 11:54] LABS: ALBUMIN 2.7 GM/DL (3.2-5.2); ALBUMIN/GLOBULIN RATIO 0.75 (1.00-1.93); ALKALINE PHOSPHATASE 71 U/L (45-117); ALT/SGPT 16 U/L (12-78); ANION GAP 9 MEQ/L (8-16); AST/SGOT 12 U/L (7-37); BILIRUBIN,DIRECT 0.1 MG/DL (0.0-0.2); BILIRUBIN,TOTAL 0.4 MG/DL (0.2-1.0); BLOOD UREA NITROGEN 24 MG/DL (7-18); CARBON DIOXIDE LEVEL 30 MEQ/L (21-32); CHLORIDE LEVEL 102 MEQ/L (98-107); CREATININE FOR GFR 1.48 MG/DL (0.55-1.30); GLOMERULAR FILTRATION RATE 36.9 (>39); GLUCOSE, FASTING 175 MG/DL (70-100); POTASSIUM SERUM 4.3 MEQ/L (3.5-5.1); SODIUM LEVEL 141 MEQ/L (136-145); TOTAL PROTEIN 6.3 GM/DL (6.4-8.2)
== END ==
DX: N18.9 Chronic kidney disease, unspecified (principal)
CPT/HCPCS: 80076

== ENCOUNTER → 2017-10-11 | Outpatient (REF) | payer MEDICARE, MEDICAID ==
[2017-10-11 12:17] LABS: ANION GAP 11 MEQ/L (8-16); BLOOD UREA NITROGEN 31 MG/DL (7-18); CALCIUM LEVEL 8.2 MG/DL (8.8-10.2); CARBON DIOXIDE LEVEL 32 MEQ/L (21-32); CHLORIDE LEVEL 101 MEQ/L (98-107); CREATININE FOR GFR 1.54 MG/DL (0.55-1.30); GLOMERULAR FILTRATION RATE 35.3 (>39); GLUCOSE, FASTING 149 MG/DL (70-100); POTASSIUM SERUM 4.1 MEQ/L (3.5-5.1); SODIUM LEVEL 144 MEQ/L (136-145)
== END ==
DX: I50.9 Heart failure, unspecified (principal)
CPT/HCPCS: 80048

== ENCOUNTER → 2017-11-03 | Outpatient (REF) | payer MEDICARE, MEDICAID ==
[2017-11-03 14:03] LABS: ANION GAP 9 MEQ/L (8-16); BLOOD UREA NITROGEN 30 MG/DL (7-18); CALCIUM LEVEL 8.2 MG/DL (8.8-10.2); CARBON DIOXIDE LEVEL 31 MEQ/L (21-32); CHLORIDE LEVEL 100 MEQ/L (98-107); CREATININE FOR GFR 1.58 MG/DL (0.55-1.30); GLOMERULAR FILTRATION RATE 34.2 (>39); GLUCOSE, FASTING 226 MG/DL (70-100); POTASSIUM SERUM 4.2 MEQ/L (3.5-5.1); SODIUM LEVEL 140 MEQ/L (136-145)
== END ==
DX: I50.9 Heart failure, unspecified (principal); R60.9 Edema, unspecified
CPT/HCPCS: 80048

== ENCOUNTER → 2017-11-08 | Outpatient (REF) | payer MEDICARE, MEDICAID ==
[2017-11-08 11:43] LABS: ANION GAP 11 MEQ/L (8-16); BLOOD UREA NITROGEN 54 MG/DL (7-18); CALCIUM LEVEL 8.9 MG/DL (8.8-10.2); CARBON DIOXIDE LEVEL 35 MEQ/L (21-32); CHLORIDE LEVEL 92 MEQ/L (98-107); CREATININE FOR GFR 1.85 MG/DL (0.55-1.30); GLOMERULAR FILTRATION RATE 28.5 (>39); GLUCOSE, FASTING 255 MG/DL (70-100); POTASSIUM SERUM 3.1 MEQ/L (3.5-5.1); SODIUM LEVEL 138 MEQ/L (136-145)
== END ==
DX: I50.9 Heart failure, unspecified (principal)
CPT/HCPCS: 80048

== ENCOUNTER → 2017-11-11 | Outpatient (REF) | payer MEDICARE, MEDICAID ==
[2017-11-11 11:50] LABS: ANION GAP 12 MEQ/L (8-16); BLOOD UREA NITROGEN 51 MG/DL (7-18); CALCIUM LEVEL 8.4 MG/DL (8.8-10.2); CARBON DIOXIDE LEVEL 28 MEQ/L (21-32); CHLORIDE LEVEL 99 MEQ/L (98-107); CREATININE FOR GFR 1.79 MG/DL (0.55-1.30); GLOMERULAR FILTRATION RATE 29.6 (>39); GLUCOSE, FASTING 185 MG/DL (70-100); SODIUM LEVEL 139 MEQ/L (136-145)
== END ==
DX: I50.9 Heart failure, unspecified (principal)
CPT/HCPCS: 80048

== ENCOUNTER → 2017-11-14 | Outpatient (REF) | payer MEDICARE, MEDICAID ==
[2017-11-14 13:20] LABS: ANION GAP 9 MEQ/L (8-16); BLOOD UREA NITROGEN 42 MG/DL (7-18); CALCIUM LEVEL 8.2 MG/DL (8.8-10.2); CARBON DIOXIDE LEVEL 33 MEQ/L (21-32); CHLORIDE LEVEL 100 MEQ/L (98-107); CREATININE FOR GFR 1.71 MG/DL (0.55-1.30); GLOMERULAR FILTRATION RATE 31.2 (>39); GLUCOSE, FASTING 207 MG/DL (70-100); POTASSIUM SERUM 4.2 MEQ/L (3.5-5.1); SODIUM LEVEL 142 MEQ/L (136-145)
== END ==
DX: E87.6 Hypokalemia (principal); I50.9 Heart failure, unspecified
CPT/HCPCS: 80048

== ENCOUNTER → 2017-12-07 | Outpatient (REF) | payer MEDICARE, MEDICAID ==
[2017-12-07 14:30] LABS: ANION GAP 7 MEQ/L (8-16); BLOOD UREA NITROGEN 32 MG/DL (7-18); CALCIUM LEVEL 8.3 MG/DL (8.8-10.2); CARBON DIOXIDE LEVEL 33 MEQ/L (21-32); CHLORIDE LEVEL 102 MEQ/L (98-107); CREATININE FOR GFR 1.67 MG/DL (0.55-1.30); GLOMERULAR FILTRATION RATE 32.1 (>39); GLUCOSE, FASTING 205 MG/DL (70-100); NT-PRO BNP 1939 PG/ML (<125); POTASSIUM SERUM 4.8 MEQ/L (3.5-5.1); SODIUM LEVEL 142 MEQ/L (136-145)
== END ==
DX: I50.9 Heart failure, unspecified (principal)
CPT/HCPCS: 80048

== ENCOUNTER → 2017-12-12 | Outpatient (REF) | payer MEDICARE, MEDICAID ==
[2017-12-12 16:51] LABS: ANION GAP 9 MEQ/L (8-16); BLOOD UREA NITROGEN 49 MG/DL (7-18); CALCIUM LEVEL 8.5 MG/DL (8.8-10.2); CARBON DIOXIDE LEVEL 36 MEQ/L (21-32); CHLORIDE LEVEL 92 MEQ/L (98-107); CREATININE FOR GFR 1.85 MG/DL (0.55-1.30); GLOMERULAR FILTRATION RATE 28.5 (>39); GLUCOSE, FASTING 166 MG/DL (70-100); NT-PRO BNP 1821 PG/ML (<125); POTASSIUM SERUM 3.4 MEQ/L (3.5-5.1); SODIUM LEVEL 137 MEQ/L (136-145)
== END ==
DX: I50.9 Heart failure, unspecified (principal)
CPT/HCPCS: 80048

== ENCOUNTER → 2017-12-20 | Outpatient (REF) | payer MEDICARE, MEDICAID ==
[2017-12-20 12:08] LABS: ANION GAP 8 MEQ/L (8-16); BLOOD UREA NITROGEN 44 MG/DL (7-18); CALCIUM LEVEL 8.4 MG/DL (8.8-10.2); CARBON DIOXIDE LEVEL 34 MEQ/L (21-32); CHLORIDE LEVEL 98 MEQ/L (98-107); CREATININE FOR GFR 1.64 MG/DL (0.55-1.30); GLOMERULAR FILTRATION RATE 32.8 (>39); GLUCOSE, FASTING 156 MG/DL (70-100); NT-PRO BNP 1758 PG/ML (<125); POTASSIUM SERUM 4.5 MEQ/L (3.5-5.1); SODIUM LEVEL 140 MEQ/L (136-145)
== END ==
DX: I50.9 Heart failure, unspecified (principal); E55.9 Vitamin D deficiency, unspecified
CPT/HCPCS: 82306

== ENCOUNTER → 2018-01-18 | Outpatient (REF) | payer MEDICARE, MEDICAID ==
[2018-01-18 11:00] LABS: ANION GAP 10 MEQ/L (8-16); BLOOD UREA NITROGEN 31 MG/DL (7-18); CALCIUM LEVEL 8.9 MG/DL (8.8-10.2); CARBON DIOXIDE LEVEL 30 MEQ/L (21-32); CHLORIDE LEVEL 98 MEQ/L (98-107); CREATININE FOR GFR 1.68 MG/DL (0.55-1.30); GLOMERULAR FILTRATION RATE 31.9 (>39); GLUCOSE, FASTING 199 MG/DL (70-100); NT-PRO BNP 729 PG/ML (<125); POTASSIUM SERUM 4.4 MEQ/L (3.5-5.1); SODIUM LEVEL 138 MEQ/L (136-145)
== END ==
DX: I50.9 Heart failure, unspecified (principal)
CPT/HCPCS: 80048

== ENCOUNTER → 2018-02-22 | Outpatient (REF) | payer MEDICARE, MEDICAID ==
[2018-02-22 10:16] LABS: ANION GAP 9 MEQ/L (8-16); BLOOD UREA NITROGEN 32 MG/DL (7-18); CALCIUM LEVEL 8.6 MG/DL (8.8-10.2); CARBON DIOXIDE LEVEL 30 MEQ/L (21-32); CHLORIDE LEVEL 100 MEQ/L (98-107); CREATININE FOR GFR 1.76 MG/DL (0.55-1.30); GLOMERULAR FILTRATION RATE 30.2 (>39); GLUCOSE, FASTING 172 MG/DL (70-100); NT-PRO BNP 660 PG/ML (<125); POTASSIUM SERUM 4.5 MEQ/L (3.5-5.1); SODIUM LEVEL 139 MEQ/L (136-145)
== END ==
DX: I50.9 Heart failure, unspecified (principal)
CPT/HCPCS: 80048

== ENCOUNTER → 2018-03-21 | Outpatient (REF) | payer MEDICARE, MEDICAID ==
[2018-03-21 10:05] LABS: HEMATOCRIT 37.9 % (36.0-47.0); HEMOGLOBIN 11.3 g/dl (12.0-15.5); MEAN CORPUSCULAR HEMOGLOBIN 26.6 pg (27.0-33.0); MEAN CORPUSCULAR HGB CONC 29.8 g/dl (32.0-36.5); MEAN CORPUSCULAR VOLUME 89.2 fl (80.0-96.0); PLATELET COUNT, AUTOMATED 330 10^3/uL (150-450); RED BLOOD COUNT 4.25 10^6/uL (4.00-5.40); RED CELL DISTRIBUTION WIDTH 18.7 % (11.5-14.5); WHITE BLOOD COUNT 10.8 10^3/uL (4.0-10.0)
[2018-03-21 10:36] LABS: ANION GAP 8 MEQ/L (8-16); BLOOD UREA NITROGEN 24 MG/DL (7-18); CARBON DIOXIDE LEVEL 32 MEQ/L (21-32); CHLORIDE LEVEL 101 MEQ/L (98-107); CREATININE FOR GFR 1.63 MG/DL (0.55-1.30); GLUCOSE, FASTING 145 MG/DL (70-100); NT-PRO BNP 594 PG/ML (<125); POTASSIUM SERUM 4.2 MEQ/L (3.5-5.1); SODIUM LEVEL 141 MEQ/L (136-145)
== END ==
DX: I50.9 Heart failure, unspecified (principal)
CPT/HCPCS: 80048

== ENCOUNTER → 2018-04-19 | Outpatient (REF) | payer MEDICARE, MEDICAID ==
[~2018-04-19] MED LIST changes: -ACET1TAB17 PO; +ACET1TAB55 PO; -BACL10TA5 PO; +BACL10TA8 PO; -FOLI1TAB4 PO; +FOLI1TAB5 PO; +IPRA0.00 INH; -IPRASOL4 INH; +MILK12002 PO; -MILKSUS PO; -ROCE1INJ4 IV; +ROCE1INJ6 IV
[2018-04-19 12:29] LABS: CREATININE FOR GFR 1.56 MG/DL (0.55-1.30); GLOMERULAR FILTRATION RATE 34.6 (>39); POTASSIUM SERUM 4.5 MEQ/L (3.5-5.1)
== END ==
PROVIDERS: ATTEND Internal Medicine
DX: I50.9 Heart failure, unspecified (principal)

== ENCOUNTER → 2018-05-08 | Outpatient (REF) | payer MEDICARE, MEDICAID ==
[~2018-05-08] MED LIST changes: +FOLI1TAB11 PO; -FOLI1TAB5 PO; +MILK120011 PO; -MILK12002 PO
[2018-05-08 09:59] LABS: CALCIUM LEVEL 8.2 MG/DL (8.8-10.2); CREATININE FOR GFR 1.43 MG/DL (0.55-1.30); GLOMERULAR FILTRATION RATE 38.3 (>39); POTASSIUM SERUM 4.5 MEQ/L (3.5-5.1)
[2018-05-08 14:09] LABS: MAGNESIUM LEVEL 2.5 MG/DL (1.8-2.4)
== END ==
PROVIDERS: ATTEND Internal Medicine
DX: I50.9 Heart failure, unspecified (principal)

== ENCOUNTER → 2018-05-24 | Outpatient (REF) | payer MEDICARE, MEDICAID ==
[2018-05-24 09:09] LABS: CALCIUM LEVEL 8.5 MG/DL (8.8-10.2); CREATININE FOR GFR 1.66 MG/DL (0.55-1.30); GLOMERULAR FILTRATION RATE 32.2 (>39); POTASSIUM SERUM 4.2 MEQ/L (3.5-5.1)
== END ==
PROVIDERS: ATTEND Internal Medicine
DX: I50.9 Heart failure, unspecified (principal)

== ENCOUNTER → 2018-06-20 | Outpatient (REF) | payer MEDICARE, MEDICAID ==
[2018-06-20 11:36] LABS: CALCIUM LEVEL 8.4 MG/DL (8.8-10.2); CREATININE FOR GFR 1.54 MG/DL (0.55-1.30); GLOMERULAR FILTRATION RATE 35.2 (>39); POTASSIUM SERUM 4.4 MEQ/L (3.5-5.1)
== END ==
PROVIDERS: ATTEND Internal Medicine
DX: I50.9 Heart failure, unspecified (principal)

== ENCOUNTER → 2018-07-19 | Outpatient (REF) | payer MEDICARE, MEDICAID ==
[2018-07-19 09:28] LABS: CALCIUM LEVEL 7.9 MG/DL (8.8-10.2); CREATININE FOR GFR 1.7 MG/DL (0.55-1.30); GLOMERULAR FILTRATION RATE 31.4 (>39); POTASSIUM SERUM 4.5 MEQ/L (3.5-5.1)
== END ==
PROVIDERS: ATTEND Internal Medicine
DX: I50.9 Heart failure, unspecified (principal)

== ENCOUNTER → 2018-08-22 | Outpatient (REF) | payer MEDICARE, MEDICAID ==
[~2018-08-22] MED LIST changes: -/ADVA50050 INH; -/AMIO20TA PO; -/ATOR40TA PO; -/TIOT18INH INH; +ADVA1AER2 INH; +AMIO1TAB PO; +AMIO200T22 PO; -AMIO20TA PO; -AMIO400T PO; +AMIO400T7 PO; -CEFT1INJ3 IV; +CEFT1INJ5 IV; +LIPI1TAB2 PO; +SPIR1CAP INH; +TRAZ1TAB6 GT; -TRAZ25TA GT
[2018-08-22 10:44] LABS: CALCIUM LEVEL 8.2 MG/DL (8.8-10.2); CREATININE FOR GFR 1.73 MG/DL (0.55-1.30); GLOMERULAR FILTRATION RATE 30.7 (>39); POTASSIUM SERUM 4.4 MEQ/L (3.5-5.1)
== END ==
PROVIDERS: ATTEND Internal Medicine
DX: I50.9 Heart failure, unspecified (principal)

== ENCOUNTER 2018-09-07 18:12 | Emergency (ER) | payer MEDICARE, MEDICAID ==
[~2018-09-07] VITALS: Ht 165.1 cm; Wt 116.8 kg
[~2018-09-07 18:12] MED LIST changes: +ACET-908 PO; +ACET65SU PR; +ANOR1AER PO; +ARNU1INH3 PO; +MOM30SS PO; +NON-325T5 PO; +SENN1TAB8 PO; +TORS100T PO; +TRAZ-160 PO
[2018-09-07 19:26] VITALS: BP 137/56
--- NOTE | 2018-09-07 19:27 | REP ---
Clinical: Crush injury. Technique: AP, lateral, bilateral oblique views of the left foot. Findings: Osteopenia and degenerative changes are appreciated. Lateral view best demonstrates diffuse soft tissue swelling. No obvious subcutaneous emphysema or foreign body. No obvious acute fracture. Impression: Marked swelling. Osteopenia and degenerative changes. No obvious acute fracture. Electronically Signed by Erasmo Patrick MD 09/07/2018 07:18 P
[2018-09-07] MEDS ORDERED: AUGM875T28 PO (19:29)
[2018-09-07] MEDS ORDERED: AUGMENTIN 875 MG TAB PO ONE (19:30)
[2018-09-07] MEDS ORDERED: ACETAMINOPHEN TAB 650MG DOSE (2X325MG) PO ONE (19:45)
== END 2018-09-07 20:52 | disposition home or self-care (01) ==
LOC: M ED 18:12
DX: S90.32XA Contusion of left foot, initial encounter (principal); S90.122A Contusion of left lesser toe(s) without damage to nail, initial encounter; R60.0 Localized edema; M85.872 Other specified disorders of bone density and structure, left ankle and foot; M19.072 Primary osteoarthritis, left ankle and foot; V00.818A Other accident with wheelchair (powered), initial encounter; Y92.129 Unspecified place in nursing home as the place of occurrence of the external cause; I13.10 Hypertensive heart and chronic kidney disease without heart failure, with stage 1 through stage 4 chronic kidney disease, or unspecified chronic kidney disease; N18.9 Chronic kidney disease, unspecified; E07.9 Disorder of thyroid, unspecified; E11.22 Type 2 diabetes mellitus with diabetic chronic kidney disease; Z86.73 Personal history of transient ischemic attack (TIA), and cerebral infarction without residual deficits; Z87.891 Personal history of nicotine dependence; Z91.013 Allergy to seafood; Z91.048 Other nonmedicinal substance allergy status; Z79.899 Other long term (current) drug therapy; Z79.82 Long term (current) use of aspirin; Z79.02 Long term (current) use of antithrombotics/antiplatelets; Z79.52 Long term (current) use of systemic steroids; Z79.51 Long term (current) use of inhaled steroids

== ENCOUNTER → 2018-09-20 | Outpatient (REF) | payer MEDICARE, MEDICAID ==
[~2018-09-20] MED LIST changes: +AUGM875T28 PO; -TRAZ-160 PO; +TRAZ-252 PO
[2018-09-20 10:12] LABS: HEMATOCRIT 37.6 % (36.0-47.0); HEMOGLOBIN 11.3 g/dl (12.0-15.5); MEAN CORPUSCULAR HEMOGLOBIN 28.7 pg (27.0-33.0); MEAN CORPUSCULAR HGB CONC 30.1 g/dl (32.0-36.5); MEAN CORPUSCULAR VOLUME 95.4 fl (80.0-96.0); PLATELET COUNT, AUTOMATED 290 10^3/uL (150-450); RED BLOOD COUNT 3.94 10^6/uL (4.00-5.40); WHITE BLOOD COUNT 8.9 10^3/uL (4.0-10.0)
[2018-09-20 10:44] LABS: ALBUMIN 2.8 GM/DL (3.2-5.2); BILIRUBIN,DIRECT 0.2 MG/DL (0.0-0.2); BILIRUBIN,TOTAL 0.6 MG/DL (0.2-1.0); CALCIUM LEVEL 8.6 MG/DL (8.8-10.2); CREATININE FOR GFR 1.7 MG/DL (0.55-1.30); GLOMERULAR FILTRATION RATE 31.4 (>39); POTASSIUM SERUM 4.5 MEQ/L (3.5-5.1)
== END ==
PROVIDERS: ATTEND Internal Medicine
DX: I50.9 Heart failure, unspecified (principal)

== ENCOUNTER → 2018-10-18 | Outpatient (REF) ==
[2018-10-18 09:39] LABS: CALCIUM LEVEL 8.5 MG/DL (8.8-10.2); CREATININE FOR GFR 1.63 MG/DL (0.55-1.30); GLOMERULAR FILTRATION RATE 32.9 (>39); POTASSIUM SERUM 4.4 MEQ/L (3.5-5.1)
== END ==
PROVIDERS: ATTEND Internal Medicine
DX: N18.9 Chronic kidney disease, unspecified (principal)

== ENCOUNTER → 2018-11-22 | Outpatient (REF) ==
[2018-11-22 08:52] LABS: CALCIUM LEVEL 8.8 MG/DL (8.8-10.2); CREATININE FOR GFR 1.56 MG/DL (0.55-1.30); GLOMERULAR FILTRATION RATE 34.6 (>39); POTASSIUM SERUM 3.9 MEQ/L (3.5-5.1)
== END ==
PROVIDERS: ATTEND Internal Medicine
DX: I50.9 Heart failure, unspecified (principal)

== ENCOUNTER → 2018-12-01 | Outpatient (REF) ==
[~2018-12-01] MED LIST changes: +BISO5TAB14 PO; -BISO5TAB5 PO; +CHOL100029 PO; -VITAD1000T PO
[2018-12-01 10:31] LABS: CALCIUM LEVEL 8.4 MG/DL (8.8-10.2); CREATININE FOR GFR 1.97 MG/DL (0.55-1.30); GLOMERULAR FILTRATION RATE 26.5 (>39); POTASSIUM SERUM 4.2 MEQ/L (3.5-5.1)
== END ==
PROVIDERS: ATTEND Internal Medicine
DX: N18.9 Chronic kidney disease, unspecified (principal)

== ENCOUNTER → 2018-12-20 | Outpatient (REF) | payer MEDICARE, MEDICAID ==
[~2018-12-20] MED LIST changes: -BISO5TAB14 PO; +BISO5TAB5 PO; -CHOL100029 PO; +VITAD1000T PO
[2018-12-20 12:07] LABS: CALCIUM LEVEL 8.5 MG/DL (8.8-10.2); CREATININE FOR GFR 1.89 MG/DL (0.55-1.30); GLOMERULAR FILTRATION RATE 27.8 (>39); POTASSIUM SERUM 4.8 MEQ/L (3.5-5.1)
[2018-12-20 13:58] LABS: TOTAL 25(OH) VITAMIN D 19.6 NG/ML (30.0-100.0)
== END ==
PROVIDERS: ATTEND Internal Medicine
DX: N18.9 Chronic kidney disease, unspecified (principal); E55.9 Vitamin D deficiency, unspecified; I50.9 Heart failure, unspecified; Z79.899 Other long term (current) drug therapy

== ENCOUNTER → 2019-01-03 | Outpatient (REF) | payer MEDICARE, MEDICAID ==
[~2019-01-03] MED LIST changes: -BISO5TAB5 PO; +BISO5TAB9 PO; +CHOL100029 PO; -VITAD1000T PO
[2019-01-03 09:47] LABS: CALCIUM LEVEL 8.6 MG/DL (8.8-10.2); CREATININE FOR GFR 2.1 MG/DL (0.55-1.30); GLOMERULAR FILTRATION RATE 24.6 (>39); POTASSIUM SERUM 3.8 MEQ/L (3.5-5.1)
== END ==
PROVIDERS: ATTEND Internal Medicine
DX: I50.9 Heart failure, unspecified (principal)

== ENCOUNTER → 2019-01-17 | Outpatient (REF) | payer MEDICARE, MEDICAID ==
[2019-01-17 09:19] LABS: CALCIUM LEVEL 8.4 MG/DL (8.8-10.2); CREATININE FOR GFR 1.87 MG/DL (0.55-1.30); GLOMERULAR FILTRATION RATE 28.1 (>39); POTASSIUM SERUM 4.5 MEQ/L (3.5-5.1)
== END ==
PROVIDERS: ATTEND Internal Medicine
DX: I50.9 Heart failure, unspecified (principal)

== ENCOUNTER → 2019-02-21 | Outpatient (REF) | payer MEDICARE, MEDICAID ==
[2019-02-21 10:06] LABS: CALCIUM LEVEL 8.7 MG/DL (8.8-10.2); CREATININE FOR GFR 2.22 MG/DL (0.55-1.30); GLOMERULAR FILTRATION RATE 23.1 (>39); POTASSIUM SERUM 4.6 MEQ/L (3.5-5.1)
== END ==
PROVIDERS: ATTEND Internal Medicine
DX: I50.9 Heart failure, unspecified (principal)

== ENCOUNTER → 2019-02-23 | Outpatient (REF) | payer MEDICARE, MEDICAID ==
--- NOTE | 2019-02-23 13:59 | REP ---
PA and lateral chest with the patient semi upright three views: There is a single AP and two lateral views. Comparison is the AP and lateral study of 10/13/2016. There is cardiomegaly, unchanged. There are no focal infiltrates or pleural effusions. Lung joyner otherwise clear. The jalyn, mediastinum, skeletal structures are unchanged. There are surgical clips in the soft tissues of the neck on the left. Impression: Chronic cardiomegaly. No acute cardiopulmonary findings. Electronically Signed by Rey Hall MD 02/23/2019 01:50 P
== END ==
LOC: M RAD 13:17
PROVIDERS: ATTEND Internal Medicine
DX: R06.09 Other forms of dyspnea (principal)

== ENCOUNTER → 2019-02-28 | Outpatient (REF) | payer MEDICARE, MEDICAID ==
[2019-02-28 10:07] LABS: CALCIUM LEVEL 8.7 MG/DL (8.8-10.2); CREATININE FOR GFR 2.44 MG/DL (0.55-1.30); GLOMERULAR FILTRATION RATE 20.7 (>39); POTASSIUM SERUM 4.8 MEQ/L (3.5-5.1)
== END ==
PROVIDERS: ATTEND Internal Medicine
DX: N18.9 Chronic kidney disease, unspecified (principal)

== ENCOUNTER → 2019-03-21 | Outpatient (REF) | payer MEDICARE, MEDICAID ==
[2019-03-21 09:06] LABS: HEMATOCRIT 27.1 % (36.0-47.0); HEMOGLOBIN 7.6 g/dl (12.0-15.5); MEAN CORPUSCULAR HEMOGLOBIN 23.4 pg (27.0-33.0); MEAN CORPUSCULAR VOLUME 83.4 fl (80.0-96.0); PLATELET COUNT, AUTOMATED 384 10^3/uL (150-450); RED BLOOD COUNT 3.25 10^6/uL (4.00-5.40); WHITE BLOOD COUNT 7.1 10^3/uL (4.0-10.0)
[2019-03-21 09:27] LABS: BLOOD UREA NITROGEN 56 MG/DL (7-18); CALCIUM LEVEL 8.4 MG/DL (8.8-10.2); CARBON DIOXIDE LEVEL 25 MEQ/L (21-32); CHLORIDE LEVEL 109 MEQ/L (98-107); CREATININE FOR GFR 2.53 MG/DL (0.55-1.30); GLOMERULAR FILTRATION RATE 19.8 (>39); GLUCOSE, FASTING 99 MG/DL (70-100); POTASSIUM SERUM 5.1 MEQ/L (3.5-5.1); SODIUM LEVEL 142 MEQ/L (136-145)
[2019-03-21 11:10] LABS: FERRITIN 15 NG/ML (8-252); IRON (FE) 15 UG/DL (50-170); PERCENT SATURATION 4.6 % (13.2-45.0); TOTAL IRON BINDING CAPACITY 326 UG/DL (250-450); TOTAL PROTEIN 6.1 GM/DL (6.4-8.2)
[2019-03-21 13:54] LABS: URINE TOTAL PROTEIN 13.4 MG/DL (0-12)
[2019-03-22 12:17] LABS: ALBUMIN 2.99 GM/DL (3.29-5.55); ALPHA-1-GLOBULINS 0.37 GM/DL (0.17-0.41); ALPHA-2-GLOBULINS 0.96 GM/DL (0.42-0.99); ALPHA-2-GLOBULINS % 15.8 % (7.1-11.8); BETA-1-GLOBULINS 0.44 GM/DL (0.28-0.60); BETA-1-GLOBULINS % 7.2 % (4.7-7.2); BETA-2-GLOBULINS 0.43 GM/DL (0.19-0.55); GAMMA GLOBULINS 0.92 GM/DL (0.65-1.58)
[2019-03-22 15:33] LABS: UPEP INTERPRETATION NO M-SPIKE NOTED; URINE VOLUME RANDOM ML
== END ==
PROVIDERS: ATTEND Internal Medicine
DX: I50.20 Unspecified systolic (congestive) heart failure (principal)

== ENCOUNTER → 2019-03-22 | Outpatient (REF) | payer MEDICARE, MEDICAID ==
[2019-03-22 09:45] LABS: HEMATOCRIT 28.8 % (36.0-47.0); HEMOGLOBIN 8.2 g/dl (12.0-15.5); MEAN CORPUSCULAR HEMOGLOBIN 23.7 pg (27.0-33.0); MEAN CORPUSCULAR HGB CONC 28.5 g/dl (32.0-36.5); MEAN CORPUSCULAR VOLUME 83.2 fl (80.0-96.0); PLATELET COUNT, AUTOMATED 413 10^3/uL (150-450); RED BLOOD COUNT 3.46 10^6/uL (4.00-5.40); WHITE BLOOD COUNT 7.9 10^3/uL (4.0-10.0)
== END ==
PROVIDERS: ATTEND Internal Medicine
DX: D64.9 Anemia, unspecified (principal); Z79.899 Other long term (current) drug therapy

== ENCOUNTER → 2019-03-27 | Outpatient (REF) | payer MEDICARE, MEDICAID ==
[2019-03-27 15:44] LABS: HEMATOCRIT 28.3 % (36.0-47.0); MEAN CORPUSCULAR HEMOGLOBIN 23.8 pg (27.0-33.0); MEAN CORPUSCULAR HGB CONC 28.3 g/dl (32.0-36.5); MEAN CORPUSCULAR VOLUME 84.2 fl (80.0-96.0); PLATELET COUNT, AUTOMATED 372 10^3/uL (150-450); RED BLOOD COUNT 3.36 10^6/uL (4.00-5.40); WHITE BLOOD COUNT 8.4 10^3/uL (4.0-10.0)
== END ==
PROVIDERS: ATTEND Internal Medicine
DX: D64.9 Anemia, unspecified (principal)

== ENCOUNTER → 2019-04-03 | Outpatient (REF) | payer MEDICARE, MEDICAID ==
[2019-04-03 10:19] LABS: HEMATOCRIT 29.9 % (36.0-47.0); HEMOGLOBIN 8.2 g/dl (12.0-15.5); MEAN CORPUSCULAR HEMOGLOBIN 23.7 pg (27.0-33.0); MEAN CORPUSCULAR HGB CONC 27.4 g/dl (32.0-36.5); MEAN CORPUSCULAR VOLUME 86.4 fl (80.0-96.0); PLATELET COUNT, AUTOMATED 288 10^3/uL (150-450); RED BLOOD COUNT 3.46 10^6/uL (4.00-5.40); WHITE BLOOD COUNT 5.5 10^3/uL (4.0-10.0)
== END ==
PROVIDERS: ATTEND Internal Medicine
DX: D64.9 Anemia, unspecified (principal)

== ENCOUNTER → 2019-04-05 | Outpatient (REF) | payer MEDICARE, MEDICAID ==
--- NOTE | 2019-04-05 13:21 | REPPI ---
Portable chest x-ray: Single view. History: Cough. Comparison chest x-ray: February 23, 2019. Findings: Exam quality is inhibited by patient body habitus as before. No focal infiltrate is seen. Cardiomegaly is observed. Pulmonary vasculature is cephalized. Pleural angles are sharp. Impression: No focal infiltrate. Cardiomegaly and vascular cephalization. Electronically Signed by Donta Thakkar MD 04/05/2019 01:13 P
== END ==
PROVIDERS: ATTEND Physician Assistant
DX: I50.9 Heart failure, unspecified (principal)

== ENCOUNTER → 2019-04-10 | Outpatient (REF) ==
[2019-04-10 10:50] LABS: HEMATOCRIT 32.1 % (36.0-47.0); HEMOGLOBIN 8.8 g/dl (12.0-15.5); MEAN CORPUSCULAR HEMOGLOBIN 23.8 pg (27.0-33.0); MEAN CORPUSCULAR HGB CONC 27.4 g/dl (32.0-36.5); PLATELET COUNT, AUTOMATED 457 10^3/uL (150-450); RED BLOOD COUNT 3.69 10^6/uL (4.00-5.40); WHITE BLOOD COUNT 7.7 10^3/uL (4.0-10.0)
[2019-04-10 11:10] LABS: PERCENT SATURATION 12.5 % (13.2-45.0)
== END ==
PROVIDERS: ATTEND Internal Medicine
DX: D64.9 Anemia, unspecified (principal)

== ENCOUNTER → 2019-04-17 | Outpatient (REF) | payer MEDICARE, MEDICAID ==
[2019-04-17 12:18] LABS: HEMATOCRIT 33.3 % (36.0-47.0); HEMOGLOBIN 9.1 g/dl (12.0-15.5); MEAN CORPUSCULAR HEMOGLOBIN 23.6 pg (27.0-33.0); MEAN CORPUSCULAR HGB CONC 27.3 g/dl (32.0-36.5); MEAN CORPUSCULAR VOLUME 86.3 fl (80.0-96.0); PLATELET COUNT, AUTOMATED 436 10^3/uL (150-450); RED BLOOD COUNT 3.86 10^6/uL (4.00-5.40); WHITE BLOOD COUNT 8.9 10^3/uL (4.0-10.0)
== END ==
PROVIDERS: ATTEND Internal Medicine
DX: D64.9 Anemia, unspecified (principal)

== ENCOUNTER → 2019-04-26 | Outpatient (REF) | payer MEDICARE, MEDICAID ==
[~2019-04-26] MED LIST changes: +BISO5TAB14 PO; -BISO5TAB9 PO
[2019-04-26 12:53] LABS: HEMATOCRIT 35.2 % (36.0-47.0); HEMOGLOBIN 9.4 g/dl (12.0-15.5); MEAN CORPUSCULAR HEMOGLOBIN 23.5 pg (27.0-33.0); MEAN CORPUSCULAR HGB CONC 26.7 g/dl (32.0-36.5); PLATELET COUNT, AUTOMATED 449 10^3/uL (150-450); WHITE BLOOD COUNT 6.4 10^3/uL (4.0-10.0)
[2019-04-26 13:17] LABS: CALCIUM LEVEL 8.6 MG/DL (8.8-10.2); CREATININE FOR GFR 2.59 MG/DL (0.55-1.30); GLOMERULAR FILTRATION RATE 19.2 (>39); POTASSIUM SERUM 5.2 MEQ/L (3.5-5.1)
== END ==
PROVIDERS: ATTEND Internal Medicine
DX: D64.9 Anemia, unspecified (principal)

== ENCOUNTER → 2019-04-27 | Outpatient (REF) | payer MEDICARE, MEDICAID ==
[2019-04-27 12:02] LABS: CALCIUM LEVEL 8.2 MG/DL (8.8-10.2); CREATININE FOR GFR 2.54 MG/DL (0.55-1.30); GLOMERULAR FILTRATION RATE 19.7 (>39); POTASSIUM SERUM 5.4 MEQ/L (3.5-5.1)
== END ==
PROVIDERS: ATTEND Internal Medicine
DX: N18.9 Chronic kidney disease, unspecified (principal)

== ENCOUNTER → 2019-05-02 | Outpatient (REF) | payer MEDICARE, MEDICAID ==
[2019-05-02 12:23] LABS: HEMATOCRIT 33.6 % (36.0-47.0); HEMOGLOBIN 9.5 g/dl (12.0-15.5); MEAN CORPUSCULAR HEMOGLOBIN 24.4 pg (27.0-33.0); MEAN CORPUSCULAR HGB CONC 28.3 g/dl (32.0-36.5); MEAN CORPUSCULAR VOLUME 86.2 fl (80.0-96.0); PLATELET COUNT, AUTOMATED 408 10^3/uL (150-450); WHITE BLOOD COUNT 7.8 10^3/uL (4.0-10.0)
[2019-05-02 13:01] LABS: CALCIUM LEVEL 8.3 MG/DL (8.8-10.2); CREATININE FOR GFR 2.17 MG/DL (0.55-1.30); GLOMERULAR FILTRATION RATE 23.6 (>39); POTASSIUM SERUM 4.9 MEQ/L (3.5-5.1)
== END ==
PROVIDERS: ATTEND Internal Medicine
DX: E87.5 Hyperkalemia (principal)

== ENCOUNTER → 2019-05-22 | Outpatient (REF) | payer MEDICARE, MEDICAID ==
[2019-05-22 11:24] LABS: CALCIUM LEVEL 8.3 MG/DL (8.8-10.2); CREATININE FOR GFR 2.39 MG/DL (0.55-1.30); GLOMERULAR FILTRATION RATE 21.1 (>39); POTASSIUM SERUM 4.9 MEQ/L (3.5-5.1)
== END ==
PROVIDERS: ATTEND Internal Medicine
DX: I50.9 Heart failure, unspecified (principal)

== ENCOUNTER → 2019-06-20 | Outpatient (REF) | payer MEDICARE, MEDICAID ==
[2019-06-20 11:30] LABS: CALCIUM LEVEL 8.1 MG/DL (8.8-10.2); CREATININE FOR GFR 2.23 MG/DL (0.55-1.30); GLOMERULAR FILTRATION RATE 22.9 (>39); POTASSIUM SERUM 4.4 MEQ/L (3.5-5.1)
[2019-06-20 11:39] LABS: TOTAL 25(OH) VITAMIN D 31.9 NG/ML (30.0-100.0)
== END ==
PROVIDERS: ATTEND Internal Medicine
DX: I50.9 Heart failure, unspecified (principal); Z79.899 Other long term (current) drug therapy

== ENCOUNTER → 2019-06-26 | Outpatient (REF) | payer MEDICARE, MEDICAID ==
[2019-06-26 14:38] LABS: CALCIUM LEVEL 7.9 MG/DL (8.8-10.2); CREATININE FOR GFR 2.34 MG/DL (0.55-1.30); GLOMERULAR FILTRATION RATE 21.6 (>39); POTASSIUM SERUM 5.8 MEQ/L (3.5-5.1)
== END ==
PROVIDERS: ATTEND Internal Medicine
DX: N18.9 Chronic kidney disease, unspecified (principal)

== ENCOUNTER → 2019-06-28 | Outpatient (REF) | payer MEDICARE, MEDICAID | PROVIDERS: ATTEND Internal Medicine | DX: E87.5 Hyperkalemia (principal) ==

== ENCOUNTER → 2019-06-30 | Outpatient (REF) | payer MEDICARE, MEDICAID | PROVIDERS: ATTEND Internal Medicine | DX: E87.5 Hyperkalemia (principal) ==

== ENCOUNTER → 2019-07-05 | Outpatient (REF) | payer MEDICARE, MEDICAID ==
[2019-07-05 10:07] LABS: CALCIUM LEVEL 8.5 MG/DL (8.8-10.2); CREATININE FOR GFR 2.08 MG/DL (0.55-1.30); GLOMERULAR FILTRATION RATE 24.8 (>39); POTASSIUM SERUM 4.1 MEQ/L (3.5-5.1)
== END ==
PROVIDERS: ATTEND Internal Medicine
DX: E87.5 Hyperkalemia (principal)

== ENCOUNTER → 2019-07-20 | Outpatient (REF) | payer MEDICARE, MEDICAID ==
[2019-07-20 12:55] LABS: HEMATOCRIT 37.7 % (36.0-47.0); HEMOGLOBIN 11.1 g/dl (12.0-15.5); MEAN CORPUSCULAR HEMOGLOBIN 26.7 pg (27.0-33.0); MEAN CORPUSCULAR HGB CONC 29.4 g/dl (32.0-36.5); MEAN CORPUSCULAR VOLUME 90.6 fl (80.0-96.0); PLATELET COUNT, AUTOMATED 409 10^3/uL (150-450); RED BLOOD COUNT 4.16 10^6/uL (4.00-5.40); WHITE BLOOD COUNT 21.4 10^3/uL (4.0-10.0)
[2019-07-20 13:25] LABS: CALCIUM LEVEL 7.7 MG/DL (8.8-10.2); CREATININE FOR GFR 2.22 MG/DL (0.55-1.30); POTASSIUM SERUM 4.5 MEQ/L (3.5-5.1)
--- NOTE | 2019-07-20 15:51 | REPPI ---
HISTORY: Cough. COMPARISON: Multiple, the latest 04/05/2019. The technique utilized in obtaining the radiograph has magnified the cardiac silhouette and accentuated the interstitial markings. There is no significant change from the prior exam. There is cardiomegaly accentuated by technique. No acute patchy parenchymal opacities or pleural effusions seen to have developed on this limited portable exam. IMPRESSION: No significant change from the prior exam. No evidence of acute cardiopulmonary disease. Electronically Signed by Augie Esparza DO 07/20/2019 04:08 P
== END ==
PROVIDERS: ATTEND Internal Medicine
DX: I50.9 Heart failure, unspecified (principal)
CPT/HCPCS: 36415; 71045; 80048; 85027; 87040; 87077; 87186; 87486; 87581; 87633; 87798; U0002

== ENCOUNTER → 2019-07-23 | Outpatient (REF) | payer MEDICARE, MEDICAID ==
[2019-07-23 11:33] LABS: HEMATOCRIT 38.6 % (36.0-47.0); HEMOGLOBIN 11.7 g/dl (12.0-15.5); MEAN CORPUSCULAR HEMOGLOBIN 27.1 pg (27.0-33.0); MEAN CORPUSCULAR HGB CONC 30.3 g/dl (32.0-36.5); MEAN CORPUSCULAR VOLUME 89.4 fl (80.0-96.0); PLATELET COUNT, AUTOMATED 451 10^3/uL (150-450); RED BLOOD COUNT 4.32 10^6/uL (4.00-5.40); WHITE BLOOD COUNT 10.1 10^3/uL (4.0-10.0)
[2019-07-23 12:20] LABS: CALCIUM LEVEL 8.3 MG/DL (8.8-10.2); CREATININE FOR GFR 2.28 MG/DL (0.55-1.30); GLOMERULAR FILTRATION RATE 22.3 (>39); POTASSIUM SERUM 4.3 MEQ/L (3.5-5.1)
[2019-07-23 15:10] LABS: C REACTIVE PROTEIN QUANTITATIV 12.9 MG/DL (0.00-0.30)
[2019-07-23 15:27] LABS: ERYTHROCYTE SEDIMENTATION RATE 42 mm/hr (0-30)
== END ==
PROVIDERS: ATTEND Internal Medicine
DX: D72.829 Elevated white blood cell count, unspecified (principal)

== ENCOUNTER → 2019-07-30 | Outpatient (REF) | payer MEDICARE, MEDICAID ==
[~2019-07-30] MED LIST changes: +SENN-80 PO; -SENN1TAB8 PO
[2019-07-30 12:00] LABS: HEMATOCRIT 34.5 % (36.0-47.0); HEMOGLOBIN 10.7 g/dl (12.0-15.5); MEAN CORPUSCULAR VOLUME 86.9 fl (80.0-96.0); PLATELET COUNT, AUTOMATED 391 10^3/uL (150-450); RED BLOOD COUNT 3.97 10^6/uL (4.00-5.40); WHITE BLOOD COUNT 9.2 10^3/uL (4.0-10.0)
[2019-07-30 12:21] LABS: C REACTIVE PROTEIN QUANTITATIV 1.01 MG/DL (0.00-0.30); CREATININE FOR GFR 2.68 MG/DL (0.55-1.30); GLOMERULAR FILTRATION RATE 18.5 (>39); POTASSIUM SERUM 3.9 MEQ/L (3.5-5.1)
[2019-07-30 12:35] LABS: ERYTHROCYTE SEDIMENTATION RATE 24 mm/hr (0-30)
== END ==
PROVIDERS: ATTEND Internal Medicine
DX: L03.90 Cellulitis, unspecified (principal)

== ENCOUNTER → 2019-08-03 | Outpatient (REF) | payer MEDICARE, MEDICAID ==
[2019-08-03 11:03] LABS: CALCIUM LEVEL 8.2 MG/DL (8.8-10.2); CREATININE FOR GFR 1.98 MG/DL (0.55-1.30); GLOMERULAR FILTRATION RATE 26.2 (>39); POTASSIUM SERUM 4.8 MEQ/L (3.5-5.1)
== END ==
PROVIDERS: ATTEND Internal Medicine
DX: N18.9 Chronic kidney disease, unspecified (principal)

== ENCOUNTER → 2019-08-21 | Outpatient (REF) | payer MEDICARE, MEDICAID ==
[2019-08-21 12:11] LABS: CALCIUM LEVEL 8.8 MG/DL (8.8-10.2); CREATININE FOR GFR 1.93 MG/DL (0.55-1.30)
== END ==
PROVIDERS: ATTEND Internal Medicine
DX: I50.9 Heart failure, unspecified (principal)

== ENCOUNTER → 2019-09-03 | Outpatient (REF) | PROVIDERS: ATTEND Internal Medicine | DX: Z03.818 Encounter for observation for suspected exposure to other biological agents ruled out (principal) ==

== ENCOUNTER → 2019-09-19 | Outpatient (REF) | payer MEDICARE, MEDICAID ==
[2019-09-19 10:43] LABS: HEMATOCRIT 33.7 % (36.0-47.0); HEMOGLOBIN 10.3 g/dl (12.0-15.5); MEAN CORPUSCULAR HEMOGLOBIN 26.7 pg (27.0-33.0); MEAN CORPUSCULAR HGB CONC 30.6 g/dl (32.0-36.5); MEAN CORPUSCULAR VOLUME 87.3 fl (80.0-96.0); PLATELET COUNT, AUTOMATED 405 10^3/uL (150-450); RED BLOOD COUNT 3.86 10^6/uL (4.00-5.40); WHITE BLOOD COUNT 8.6 10^3/uL (4.0-10.0)
[2019-09-19 11:05] LABS: ALBUMIN 2.4 GM/DL (3.2-5.2); BILIRUBIN,DIRECT 0.2 MG/DL (0.0-0.2); BILIRUBIN,TOTAL 0.4 MG/DL (0.2-1.0); CALCIUM LEVEL 8.2 MG/DL (8.8-10.2); CREATININE FOR GFR 1.84 MG/DL (0.55-1.30); GLOMERULAR FILTRATION RATE 28.5 (>39); POTASSIUM SERUM 4.3 MEQ/L (3.5-5.1); TOTAL PROTEIN 5.9 GM/DL (6.4-8.2)
== END ==
PROVIDERS: ATTEND Internal Medicine
DX: I50.9 Heart failure, unspecified (principal)

== ENCOUNTER → 2019-10-04 | Outpatient (REF) | payer MEDICARE, MEDICAID ==
[2019-10-04 10:05] LABS: CREATININE FOR GFR 2.03 MG/DL (0.55-1.30); GLOMERULAR FILTRATION RATE 25.5 (>39)
== END ==
PROVIDERS: ATTEND Internal Medicine
DX: Z79.899 Other long term (current) drug therapy (principal)

== ENCOUNTER → 2019-10-08 | Outpatient (REF) | payer MEDICARE, MEDICAID ==
[2019-10-08 11:39] LABS: CALCIUM LEVEL 7.8 MG/DL (8.8-10.2); CREATININE FOR GFR 2.4 MG/DL (0.55-1.30); POTASSIUM SERUM 3.3 MEQ/L (3.5-5.1)
== END ==
PROVIDERS: ATTEND Internal Medicine
DX: I50.9 Heart failure, unspecified (principal); N18.9 Chronic kidney disease, unspecified

== ENCOUNTER → 2019-10-10 | Outpatient (REF) ==
[~2019-10-10] MED LIST changes: +ACET-838 PO; -AMIO200T PO; +AMIO200T3 PO; -ASPI81TA85 PO; +ASPI81TA86 PO; -NON-325T5 PO
[2019-10-10 12:01] LABS: CALCIUM LEVEL 7.9 MG/DL (8.8-10.2); CREATININE FOR GFR 2.2 MG/DL (0.55-1.30); GLOMERULAR FILTRATION RATE 23.2 (>39)
== END ==
PROVIDERS: ATTEND Internal Medicine
DX: E87.1 Hypo-osmolality and hyponatremia (principal)

== ENCOUNTER → 2019-10-16 | Outpatient (REF) ==
[~2019-10-16] MED LIST changes: -ACET-838 PO; +AMIO200T PO; -AMIO200T3 PO; +ASPI81TA85 PO; -ASPI81TA86 PO; +NON-325T5 PO
[2019-10-16 12:14] LABS: CALCIUM LEVEL 8.2 MG/DL (8.8-10.2); CREATININE FOR GFR 2.44 MG/DL (0.55-1.30); GLOMERULAR FILTRATION RATE 20.6 (>39); POTASSIUM SERUM 3.9 MEQ/L (3.5-5.1)
== END ==
PROVIDERS: ATTEND Internal Medicine
DX: N18.9 Chronic kidney disease, unspecified (principal)

== ENCOUNTER → 2019-10-23 | Outpatient (REF) | payer MEDICARE, MEDICAID ==
[2019-10-23 13:17] LABS: CALCIUM LEVEL 8.1 MG/DL (8.8-10.2); CREATININE FOR GFR 2.79 MG/DL (0.55-1.30); GLOMERULAR FILTRATION RATE 17.7 (>39); POTASSIUM SERUM 4.9 MEQ/L (3.5-5.1)
== END ==
PROVIDERS: ATTEND Internal Medicine
DX: N18.9 Chronic kidney disease, unspecified (principal)

== ENCOUNTER → 2019-10-25 | Outpatient (REF) ==
[2019-10-25 10:22] LABS: CALCIUM LEVEL 8.2 MG/DL (8.8-10.2); CREATININE FOR GFR 2.97 MG/DL (0.55-1.30); GLOMERULAR FILTRATION RATE 16.4 (>39); POTASSIUM SERUM 4.5 MEQ/L (3.5-5.1)
--- NOTE | 2019-10-25 14:04 | REPPI ---
REASON: Congestive heart failure. COMPARISON: Multiple, the latest 07/20/2019. The technique utilized in obtaining the radiograph has magnified the cardiac silhouette and accentuated the interstitial markings. Once again, the cardiac silhouette is magnified by technique. There is cardiomegaly. Once again, the interstitial markings are diffusely increased and magnified by technique. No acute patchy parenchymal opacities or pleural effusions have developed. The osseous structures are stable and intact. IMPRESSION: No significant change from the prior exam. Electronically Signed by Augie Esparza DO 10/25/2019 04:57 P
== END ==
PROVIDERS: ATTEND Internal Medicine
DX: N18.9 Chronic kidney disease, unspecified (principal)

== ENCOUNTER → 2019-10-29 | Outpatient (REF) | payer MEDICARE, MEDICAID ==
[2019-10-29 14:09] LABS: CALCIUM LEVEL 8.6 MG/DL (8.8-10.2); CREATININE FOR GFR 3.03 MG/DL (0.55-1.30); GLOMERULAR FILTRATION RATE 16.1 (>39); POTASSIUM SERUM 4.2 MEQ/L (3.5-5.1)
== END ==
PROVIDERS: ATTEND Internal Medicine
DX: N18.9 Chronic kidney disease, unspecified (principal); I50.9 Heart failure, unspecified

== ENCOUNTER → 2019-11-06 | Outpatient (REF) ==
[2019-11-06 10:57] LABS: CALCIUM LEVEL 8.7 MG/DL (8.8-10.2); CREATININE FOR GFR 2.99 MG/DL (0.55-1.30); GLOMERULAR FILTRATION RATE 16.3 (>39); POTASSIUM SERUM 4.4 MEQ/L (3.5-5.1)
== END ==
PROVIDERS: ATTEND Internal Medicine
DX: N18.9 Chronic kidney disease, unspecified (principal)

== ENCOUNTER → 2019-11-15 | Outpatient (REF) | payer MEDICARE, MEDICAID ==
[~2019-11-15] MED LIST changes: -AMIO200T PO; +AMIO200T3 PO; -ASPI81TA85 PO; +ASPI81TA86 PO
[2020-01-28 20:42] LABS: CALCIUM LEVEL 8.3 MG/DL (8.8-10.2); CREATININE FOR GFR 2.81 MG/DL (0.55-1.30); GLOMERULAR FILTRATION RATE 17.5 (>39); POTASSIUM SERUM 4.6 MEQ/L (3.5-5.1)
== END ==
PROVIDERS: ATTEND Physician Assistant
DX: N18.9 Chronic kidney disease, unspecified (principal)

== ENCOUNTER → 2019-12-14 | Outpatient (REF) | payer MEDICARE, MEDICAID ==
[2019-12-14 19:17] LABS: MEAN CORPUSCULAR HEMOGLOBIN 25.1 pg (27.0-33.0); MEAN CORPUSCULAR HGB CONC 29.4 g/dl (32.0-36.5); MEAN CORPUSCULAR VOLUME 85.4 fl (80.0-96.0); PLATELET COUNT, AUTOMATED 302 10^3/uL (150-450); RED BLOOD COUNT 3.98 10^6/uL (4.00-5.40)
[2019-12-14 19:21] LABS: WHITE BLOOD COUNT 38.4 10^3/uL (4.0-10.0)
[2019-12-14 19:43] LABS: CALCIUM LEVEL 7.7 MG/DL (8.8-10.2); POTASSIUM SERUM 6.8 MEQ/L (3.5-5.1)
--- NOTE | 2020-01-22 09:33 | REPPI ---
CHEST X-RAY: SINGLE VIEW AP ERECT HISTORY: Shortness of breath. COMPARISON: 10/25/2019. FINDINGS: The mandible and face overlie the lung apices particularly on the right. No definite infiltrate is seen. Moderate cardiac enlargement is obvious. This is unchanged. IMPRESSION: No definite infiltrate. Moderate cardiac enlargement again noted. MTDD
== END ==
PROVIDERS: ATTEND Physician Assistant
DX: R06.02 Shortness of breath (principal)